=== PATIENT | male | born 1990 | race Caucasian/White ===

== ENCOUNTER 2022-02-27 10:46 | Outpatient (REF) | payer MEDICAID, OTHER, SELFPAY ==
--- NOTE | ~2022-02-27 | XR_ITS ---
EXAMINATION: XR CHEST CLINICAL INFORMATION: Chest pain COMPARISON: None TECHNIQUE: 2 views of the chest were obtained. FINDINGS: Clear lungs. No pleural effusion or pneumothorax. Normal cardiomediastinal silhouette. XR/XR chest 2V IMPRESSION: Unremarkable examination.
== END 2022-02-27 10:47 | disposition home or self-care (01) ==
LOC: HO.XRAY 10:46
PROVIDERS: PCP Registered Nurse; Visit Provider Registered Nurse
DX: R07.89 Other chest pain (principal)
CPT/HCPCS: 71046

== ENCOUNTER → 2022-05-01 14:44 | Outpatient (REF) | payer MEDICAID, OTHER, SELFPAY ==
--- NOTE | 2022-05-01 14:48 | CA_ITS ---
Transthoracic Echocardiogram Patient (Last, First, Middle): Alessandro Albright, Gender: Male Date of : 1990 Age: 31 Procedure Date: 05/01/2022 Procedure Type: Transthoracic Echocardiogram Location: OP Height: 187.96 cm Weight: 127.01 kg BSA: 2.51 m2 Heart Rate: bpm BP: 120 / 74 mmHg Virtual Reality Specialist: ORLANDO Referring MD: Jacklyn VIRGEN Surveillance Dual Rate Officer: Germán Saenz MD Symptoms: R07.89 OTHER CHEST PAIN Study Quality: Fair/contrast ECG Rhythm: Sinus Conclusions: - Essentially normal study Findings Procedure Information Contrast agent, definity, is being given per protocol without apparent complications. Left Ventricle Normal left ventricular size, thickness, and systolic function. The visually estimated ejection fraction is between 65-70%. Spectral Doppler is indicative of a normal filling pattern. Right Ventricle Normal right ventricular cavity size and systolic function. Atria Both atria are normal in size. Interatrial shunt cannot be excluded. Aortic Valve The aortic valve structure and function is likely normal. There is no aortic valve stenosis. There is no aortic valve regurgitation. Mitral Valve Normal mitral valve structure and function. There is trace mitral valve regurgitation. There is no mitral valve stenosis. Pulmonic Valve The pulmonic valve was not well visualized. Tricuspid Valve Likely normal tricuspid valve structure and function. There is trace tricuspid valve regurgitation. The right ventricular systolic pressure is normal. Normal right atrial pressure. There is no evidence of pulmonary hypertension. Great Vessels All visible segments of the aorta are normal in size. The pulmonary artery was not well visualized. Venous The inferior vena cava is normal in size and collapses greater than 50% with inspiration. Pericardium/Pleural There is no evidence of pericardial effusion. Prior Study Comparison No prior study available for comparison. Measurements 2D Linear Measurements IVSd: 0.93 0.6-0.9/0.6-1.0 cm LVIDd: 5.75 3.9-5.3/4.2-5.9 cm LVIDd Index: 2.29 2.4-3.2/2.2-3.1 cm/m2 LVIDs: 3.82 2.0-3.6 cm LVPWd: 1.15 0.7-1.1 cm LA Diam: 4.30 2.7-3.8/3.0-4.0 cm LAIDs Index: 1.71 1.5-2.3 cm/m2 LV Mass: 300.96 67-162/88-224 g LV Mass Index: 119.91 43-95/49-115 g/m2 LVOT Diam: 2.40 3.0+(-)1.3 cm 2D Systolic Function EF 4C: 68.50 >55% EF 2C: 65.50 >55% EF BiP: 66.70 >55% Mitral Valve MV Pk E: 0.76 MV PK A: 0.67 MV Decel Time: 206.00 E/A: 1.10 E'Lateral: 11.90 E'Medial: 7.94 E/E' Med: 9.60 E/E' Lat: 6.40 PHT: 60.00 MVA PHT: 3.67 Decel [place]: 3.68 Aortic Valve AoV Pk Agusto: 1.71 AoV Mn Agusto: 1.15 AoV VTI: 0.33 AoV Pk Grad: 12.00 Aov Mn Grad: 6.00 DARLINE Cont.VTI: 3.32 LVOT LVOT Pk Agusto: 1.29 LVOT Mn Agusto: 0.78 LVOT VTI: 0.25 LVOT Pk Grad: 7.00 LVOT Mn Grad: 3.00 LVOT Diam: 2.40 LVOT Area: 4.52 Diastolic Function MV Pk E: 0.76 MV Pk A: 0.67 E/A: 1.10 E'Medial: 7.94 E/E' Med: 9.60 E' Laterial: 11.90 E/E' Lat: 6.40 Right Ventricle TAPSE (mm): 27.00 TVS' Agusto: 13.40 Tricuspid Valve TR Pk Agusto: 2.23 TR Pk Grad: 20.00 RA Press: 3.00 RVSP: 23.00 Great Vessels Aorta Sinus of Valsalva: 3.23 2.0-3.[address] [place]: 2.57 1.7-3.4 cm Ao Asc: 3.10 2.1-3.4 cm Ao Arch: 2.90 Updated in Other Vendor System with Status of Final Germán Saenz MD electronically signed on 05/01/2022 4:51:06 PM with status of Final
== END ==
LOC: HO.CARD 14:44
PROVIDERS: PCP Registered Nurse; Visit Provider Registered Nurse
DX: R07.89 Other chest pain (principal)
CPT/HCPCS: 93306; Q9957

== ENCOUNTER 2023-12-18 16:19 | Outpatient (REF) | payer MEDICAID, OTHER, SELFPAY ==
[2023-12-18 18:32] LABS: Alanine Aminotransferase 32 U/L (0-40); Albumin Level 3.8 g/dL (3.5-5.0); Alkaline Phosphatase 135 U/L (39-117); Anion Gap 9 (12-20); Aspartate Amino Transferase 26 U/L (5-37); Bilirubin Total 0.3 mg/dL (0.0-1.0); Blood Urea Nitrogen 16 mg/dL (9-16); Carbon Dioxide 28 mmol/L (22-29); Chloride 104 mmol/L (96-108); Estimated Glomerular Filt Rate > 60; Glucose Random 196 mg/dL (60-115); Magnesium 1.6 mg/dL (1.6-2.6); Potassium 3.4 mmol/L (3.3-5.1); Sodium 138 mmol/L (135-145); Total Protein 7.5 g/dL (6.5-8.0)
[2023-12-18 19:00] LABS: Folate 10.3 ng/mL (> or = 4.0); Vitamin B12 504 pg/mL (200-900)
[2023-12-18 19:06] LABS: Creatinine Urine 114.18 mg/dL
[2023-12-18 19:21] LABS: Microalbum/Creatinine Ratio Ur 576.2 ug/mg cr (<30)
== END 2023-12-18 16:20 | disposition home or self-care (01) ==
LOC: HO.HHCL 16:19
PROVIDERS: Visit Provider Nurse Practitioner
DX: I10 Essential (primary) hypertension (principal); R20.8 Other disturbances of skin sensation
CPT/HCPCS: 36415; 80053; 82043; 82570; 82607; 82746; 83735

== ENCOUNTER 2024-01-03 11:43 | Outpatient (REF) | payer MEDICAID, OTHER, SELFPAY ==
[2024-01-03 13:59] LABS: Estimated Average Glucose 137 mg/dL; Hemoglobin A1c % 6.4 % (<6.0)
[2024-01-03 14:09] LABS: Alanine Aminotransferase 30 U/L (0-40); Albumin Level 3.8 g/dL (3.5-5.0); Alkaline Phosphatase 118 U/L (39-117); Aspartate Amino Transferase 25 U/L (5-37); Bilirubin Direct 0.2 mg/dL (0.0-0.5); Bilirubin Total 0.4 mg/dL (0.0-1.0); Total Protein 7.4 g/dL (6.5-8.0)
[2024-01-04 04:00] LABS: HIV AB/AG Nonreactive (Nonreactive); HIV Num 1 0.05 S/CO (0.00-0.99); ~Hepatitis C Antibody Nonreactive (Nonreactive)
[2024-01-06 22:43] LABS: RPR Rapid Plasma Reagin NON-REACTIVE (NON-REACTIVE)
== END 2024-01-03 11:44 | disposition home or self-care (01) ==
LOC: HO.HHCL 11:43
PROVIDERS: Visit Provider Nurse Practitioner Primary Care
DX: R10.11 Right upper quadrant pain (principal); R73.09 Other abnormal glucose; Z79.899 Other long term (current) drug therapy
CPT/HCPCS: 36415; 80076; 83036; 86592; 86803; 87389

== ENCOUNTER 2024-01-09 15:44 | Outpatient (REF) | payer MEDICAID, OTHER, SELFPAY ==
[2024-01-10 15:08] LABS: HIV RNA PCR Qn Copies NOT DETECTED copies/mL (NOT DETECTED); HIV RNA PCR Qn Log Copies NOT DETECTED (NOT DETECTED)
== END 2024-01-09 15:45 | disposition home or self-care (01) ==
LOC: HO.HHCL 15:44
PROVIDERS: Visit Provider Nurse Practitioner
DX: Z79.899 Other long term (current) drug therapy (principal)
CPT/HCPCS: 36415; 87536

== ENCOUNTER 2024-01-17 08:21 | Outpatient (REF) | payer MEDICAID, OTHER, SELFPAY ==
[2024-01-17 12:05] LABS: Anion Gap 11 (12-20); Blood Urea Nitrogen 14 mg/dL (9-16); Calcium 8.9 mg/dL (8.4-10.2); Carbon Dioxide 26 mmol/L (22-29); Chloride 103 mmol/L (96-108); Cholesterol 132 mg/dL (<200); Estimated Glomerular Filt Rate > 60; Glucose Random 118 mg/dL (60-115); HDL Cholesterol 34 mg/dL (>40); LDL Cholesterol Calculated 76 mg/dL (<100); Potassium 3.3 mmol/L (3.3-5.1); Sodium 137 mmol/L (135-145); Triglycerides 110 mg/dL (<150)
[2024-01-17 12:19] LABS: TSH reflex Free T4 3.24 uIU/mL (0.32-4.0)
[2024-01-17 12:39] LABS: Creatinine Urine 11.18 mg/dL; Microalbum/Creatinine Ratio Ur 250.4 ug/mg cr (<30)
== END 2024-01-17 08:22 | disposition home or self-care (01) ==
LOC: HO.HHCL 08:21
PROVIDERS: Visit Provider Nurse Practitioner
DX: I10 Essential (primary) hypertension (principal); R73.03 Prediabetes
CPT/HCPCS: 36415; 80048; 80061; 82043; 82570; 84443

== ENCOUNTER 2024-02-10 15:15 | Outpatient (REF) | payer OTHER, SELFPAY ==
[2024-02-12 09:03] LABS: HIV RNA PCR Qn Copies NOT DETECTED copies/mL (NOT DETECTED); HIV RNA PCR Qn Log Copies NOT DETECTED (NOT DETECTED)
== END 2024-02-10 15:16 | disposition home or self-care (01) ==
LOC: HO.HHCL 15:15
PROVIDERS: Visit Provider Nurse Practitioner
DX: Z79.899 Other long term (current) drug therapy (principal)
CPT/HCPCS: 36415; 87536

== ENCOUNTER 2024-04-10 14:14 | Outpatient (REF) | payer MEDICAID, OTHER, SELFPAY ==
[2024-04-10 16:34] LABS: Estimated Glomerular Filt Rate > 60
[2024-04-11 15:29] LABS: HIV RNA PCR Qn Copies NOT DETECTED copies/mL (NOT DETECTED); HIV RNA PCR Qn Log Copies NOT DETECTED (NOT DETECTED)
[2024-04-12 04:00] LABS: Syphilis Screen Reactive (Nonreactive)
[2024-04-12 04:09] LABS: ~HepC Num1 0.28 S/CO (0.00-0.79); ~Hepatitis C Antibody Nonreactive (Nonreactive)
[2024-04-14 17:04] LABS: Mycoplasma genitalium NAA Not Detected (Not Detected)
[2024-04-17 13:52] LABS: RPR Quantitative Non-Reactive (Nonreactive); T.Pallidum Particle Agg Test Reactive (Nonreactive)
== END 2024-04-10 14:15 | disposition home or self-care (01) ==
LOC: HO.HHCL 14:14
PROVIDERS: Nurse Practitioner; Visit Provider Emergency Medicine
DX: Z29.81 Encounter for HIV pre-exposure prophylaxis (principal)
CPT/HCPCS: 36415; 82565; 86592; 86780; 86803; 87536; 87563

== ENCOUNTER 2024-05-20 11:09 | Outpatient (REF) | payer MEDICAID, OTHER, SELFPAY ==
[2024-05-20 13:53] LABS: Anion Gap 13 (12-20); Blood Urea Nitrogen 13 mg/dL (9-16); Calcium 9.4 mg/dL (8.4-10.2); Carbon Dioxide 23 mmol/L (22-29); Chloride 105 mmol/L (96-108); Estimated Glomerular Filt Rate > 60; Glucose Random 139 mg/dL (60-115); Potassium 3.3 mmol/L (3.3-5.1); Sodium 138 mmol/L (135-145)
[2024-05-20 13:56] LABS: Estimated Average Glucose 154 mg/dL
[2024-05-20 14:47] LABS: Creatinine Urine 152.18 mg/dL
[2024-05-20 14:48] LABS: Microalbum/Creatinine Ratio Ur 331.1 ug/mg cr (<30)
== END 2024-05-20 11:10 | disposition home or self-care (01) ==
LOC: HO.HHCL 11:09
PROVIDERS: Visit Provider Nurse Practitioner
DX: R80.9 Proteinuria, unspecified (principal); I10 Essential (primary) hypertension; R73.03 Prediabetes
CPT/HCPCS: 36415; 80048; 82043; 82570; 83036

== ENCOUNTER 2024-07-01 12:39 | Outpatient (REF) | payer MEDICAID, OTHER, SELFPAY ==
--- NOTE | ~2024-07-01 | XR_ITS ---
EXAMINATION: XR CHEST CLINICAL INFORMATION: US of breath and difficulty breathing COMPARISON: 02/27/2022 TECHNIQUE: 2 views of the chest were obtained. FINDINGS: Slight elevation of the right hemidiaphragm unchanged. Lungs clear. No pleural effusions. Heart and pulmonary vessels normal. XR/XR chest 2V IMPRESSION: No active disease. Electronically signed by: Blade Campbell MD 07/01/2024 02:43 PM EDT
== END 2024-07-01 12:40 | disposition home or self-care (01) ==
LOC: HO.HHCX 12:39
PROVIDERS: Visit Provider Nurse Practitioner
DX: R06.02 Shortness of breath (principal)
CPT/HCPCS: 71046

== ENCOUNTER 2024-08-10 12:03 | Outpatient (REF) | payer MEDICAID, OTHER, SELFPAY ==
[2024-08-10 13:53] LABS: Alanine Aminotransferase 29 U/L (0-40); Albumin Level 3.9 g/dL (3.5-5.0); Alkaline Phosphatase 92 U/L (39-117); Aspartate Amino Transferase 26 U/L (5-37); Bilirubin Direct 0.2 mg/dL (0.0-0.5); Bilirubin Total 0.4 mg/dL (0.0-1.0); Total Protein 7.9 g/dL (6.5-8.0)
[2024-08-11 08:30] LABS: HBS Num1 579.31 mIU/mL (0-7.99); HIV AB/AG Nonreactive (Nonreactive); HIV Num 1 0.06 S/CO (0.00-0.99); ~Hepatitis B Surface Antibody REACTIVE (Nonreactive)
[2024-08-11 08:51] LABS: Syphilis Screen Reactive (Nonreactive)
[2024-08-11 13:59] LABS: HIV RNA PCR Qn Copies NOT DETECTED copies/mL (NOT DETECTED); HIV RNA PCR Qn Log Copies NOT DETECTED (NOT DETECTED)
[2024-08-19 12:26] LABS: RPR Quantitative Non-Reactive (Nonreactive); T.Pallidum Particle Agg Test Reactive (Nonreactive)
== END 2024-08-10 12:04 | disposition home or self-care (01) ==
LOC: HO.HHCL 12:03
PROVIDERS: Visit Provider Nurse Practitioner
DX: Z79.899 Other long term (current) drug therapy (principal)
CPT/HCPCS: 36415; 80076; 86592; 86706; 86780; 87389; 87536

== ENCOUNTER 2024-09-04 10:49 | Outpatient (REF) | payer MEDICAID, OTHER, SELFPAY ==
[2024-09-04 13:23] LABS: Estimated Average Glucose 146 mg/dL; Hemoglobin A1C 195.6611 umol/L; Hemoglobin A1c % 6.7 % (<6.0); Total Hemoglobin (HGBA1C) 3938.3889 umol/L
[2024-09-04 13:35] LABS: Anion Gap 9 (12-20); Blood Urea Nitrogen 8 mg/dL (9-16); Calcium 8.9 mg/dL (8.4-10.2); Carbon Dioxide 28 mmol/L (22-29); Chloride 107 mmol/L (96-108); Cholesterol 117 mg/dL (<200); Estimated Glomerular Filt Rate > 60; Glucose Random 136 mg/dL (60-115); HDL Cholesterol 33 mg/dL (>40); LDL Cholesterol Calculated 47 mg/dL (<100); Potassium 3.8 mmol/L (3.3-5.1); Sodium 140 mmol/L (135-145); Triglycerides 188 mg/dL (<150)
[2024-09-04 13:49] LABS: Creatinine Urine 142.09 mg/dL
== END 2024-09-04 10:50 | disposition home or self-care (01) ==
LOC: HO.HHCL 10:49
PROVIDERS: Visit Provider Nurse Practitioner
DX: I10 Essential (primary) hypertension (principal); E11.9 Type 2 diabetes mellitus without complications
CPT/HCPCS: 36415; 80048; 80061; 82043; 82570; 83036

== ENCOUNTER 2024-11-11 10:43 | Outpatient (REF) | payer MEDICAID, OTHER, SELFPAY ==
--- OUTSIDE RECORDS SUMMARY | 2024-11-11 12:24 | XMS_ITS | Clinical Summary ---
Author Organization [employer] Address [address] [place] [address] Care Team Providers Care Federal Agent Name Role Phone Briana Varela NP Primary Care Provider [phone] Allergies No known active allergies Medications Diclofenac Sodium (Voltaren) 1 % gelIndications:A cute midline thoracic back pain Apply 2 g topically if needed in the morning and at bedtime (muscle pain). 100 g 3 01/31/20 23 Active fluticasone (Flonase) 50 MCG/ACT nasal sprayIndications :Seasonal allergic rhinitis, unspecified trigger INSTILL 2 SPRAYS IN EACH NOSTRIL ONCE DAILY IN THE MORNING 48 g 04/22/20 23 Active empagliflozin (Jardiance) 10 MGIndications:Ty pe 2 diabetes mellitus without complication, without long-term current use of insulin ([facility]) Take 1 tablet (10 mg) by mouth Once per day. 30 tablet 11 07/01/20 24 025 Active FREESTYLE LITE test stripIndications :Type 2 diabetes mellitus without complication, without long-term current use of insulin ([facility]) Use to test blood sugar two times daily 100 each 12 07/01/20 24 025 Active Blood Glucose Monitoring Suppl (FreeStyle [place] Lite) w/Device kitIndications:T ype 2 diabetes mellitus without complication, without long-term current use of insulin ([facility]) Use to test blood sugar 2 times daily 1 kit 07/01/20 24 Active magnesium, as gluconate, (Magonate) 500 (27 Mg) MG tabletIndication s:Burning sensation of lower extremity Take 1 tablet (27 mg) by mouth 2 times daily. 60 tablet 09/30/19 25 026 Active Cabotegravir ER (Apretude) 600 MG/3ML Suspension Extended ReleaseIndicatio ns:On pre-exposure prophylaxis for HIV Inject 600 mg into the muscle every 8 (eight) weeks. Ventrogluteal 3 mL 5 09/30/19 25 Active olmesartan (Benicar) 40 MG tabletIndication s:Essential hypertension Take 1 tablet (40 mg) by mouth Once per day. 30 tablet 2 09/30/19 25 025 Active metFORMIN (Glucophage) 850 MG tabletIndication s:Pre-diabetes TAKE 1 TABLET BY MOUTH WITH BREAKFAST 30 tablet 5 09/30/19 25 Active Dulaglutide (Trulicity) 0.75 MG/0.5ML solution auto-injectorInd ications:Type 2 diabetes mellitus without complication, without long-term current use of insulin (CMS/HCC) Inject 0.75 mg under the skin 1 (one) time per week. INJECT ONE PEN (=0.75 MG) SUBCUTANEOUSLY ONCE A WEEK 2 mL 09/30/19 25 Active Alcohol Swabs 70 % padsIndications: Type 2 diabetes mellitus without complication, without long-term current use of insulin (CMS/HCC) Use to test blood sugar 2 times daily 100 each 09/30/19 25 Active Lancets miscIndications: Type 2 diabetes mellitus without complication, without long-term current use of insulin (CMS/HCC) Use to test blood sugar 2 times daily 100 each 09/30/19 25 Active Hospital, Clinic, or Other Facility Administered Medication Ordered Dose Route Frequency Start Date End Date Status Cabotegravir ER Suspension Extended Release 600 mgIndications:On pre-exposure prophylaxis for HIV 600 mg IM Once 11/11/2024 11/11/2024 Ended Active Problems Problem Noted Date Diagnosed Date Obesity (BMI 30-39.9) 08/10/2024 Hypersomnolence 07/01/2024 Assessment & Plan (07/01/2024 12:39 PM EDT): -strong suspicion for obstructive sleep apnea -STOP-BANG questioner score of 6 -patient will benefit from testing and treatment if positive test as this would aid in tighter BP control and overall cardiac health Morbid obesity 07/01/2024 Assessment & Plan (09/04/2024 5:34 PM EST): -2 lb weight gain since 06/2024 which he attributes to recent holiday festivities -reinforced dietary and exercise recommendations Dietary Recommendations: Fruits, vegetables, whole grains, protein foods, and fat-free or low-fat dairy products are healthy choices. Eat different types of protein foods in your diet. This can include seafood, lean meats, poultry, beans, peas, lentils, nuts, seeds, soy products, and eggs. Limit foods and beverages higher in added sugars, saturated fat, and sodium. Exercise Recommendations: At least 150 minutes of moderate-intensity physical activity per week, or an equivalent combination of moderate- and vigorous-intensity activity -will revaluate progress in 3 months since they would have been on Trulicity for some time by then Assessment & Plan (08/10/2024 11:29 AM EST): -continue diet and exercise -reviewed weight loss options -plan to discuss further at follow-up visit Assessment & Plan (07/01/2024 12:49 PM EDT): -patient's morbid obesity has shown to be negatively impacting their health -has been engaging in lifestyle changes with diet and physical activity, however they have not been successful with weight loss. They express interest for bariatric surgery -reviewed healthy diet and exercise recommendations: Eat a variety of fruit and vegetables, whole grains such as whole-wheat flour, bulgur (cracked wheat), oatmeal, and brown rice. Intake protein from beans, nuts, fish, and lean meats. Eat low- fat or fat-free dairy products. Limit highly processed foods such as hot dogs, sandwich meat, etc. Engage in minimum of 150 min of moderate intensity exercise weekly -referral placed Albuminuria 05/20/2024 Assessment & Plan (09/04/2024 5:23 PM EST): -started on Jardiance 10 mg on 06/2024 -repeat testing ordered today with plan to increase Jardiance dose to 20 mg if no improvement noted Assessment & Plan (07/01/2024 12:27 PM EDT): Images from the original note were not included. -severely increased albuminuria most likely r/t uncontrolled diabetes, obesity, and formerly poor BP control -currently taking olmesartan for BP control. Plan to start Jardiance 10 mg today for its multifunctional properties for glycemic control, renal and cardioprotection - Assessment & Plan (08/10/2024 11:30 AM EST): Images from the original note were not included. -macroalbuminuria state based on lab value trend -repeat ordered today. Will discuss starting jardiance for management with persistent elevation Type 2 diabetes mellitus wit hout complication, without long-term current use of insulin 01/16/2024 Assessment & Plan (09/04/2024 5:29 PM EST): -diabetes is improving. He is praised for his efforts and is encouraged to continue -start trulicity injections today and monitor for adverse reactions. Medication side effects reviewed again today -currently on arb, hgb A1c goal is <7%. Order placed for lab evaluate. POCT glucose 140 mg/dL -no statin at this time. Lipid orders pending -Foot exam completed today w/o abnormality -eye exam is forthcoming Assessment & Plan (07/01/2024 12:41 PM EDT): -A1c of 7% as of 05/20/24 -continue: metformin 850 mg every day. Will start Trulicity to aid in tighter glucose control given increased urine albumin -microalbumin: 331.1 micrograms/mg cr -foot exam: to be completed at follow-up visit -dental: will discuss at next visit -eye exam: will discuss at next visit -daily foot exams encouraged -low carb, low sugar diet and daily physical activity advised -order placed for glucometer for two times daily home monitoring -reviewed side effects of GLP1 including eating small portions and not eating through sensation of fullness. No personal or family history of thyroid cancer or pancreatitis. No known retinopathy. Advised to keep medication refrigerated, but do not freeze Assessment & Plan (08/10/2024 11:22 AM EST): -order placed to recheck A1c today -diet and lifestyle modifications re-enforced -metformin dose increased to 850 mg every day -will benefit from GLP-1 injection for both glycemic control and weight loss interventions. Patient will review their options and get back to me Assessment & Plan (01/16/2024 8:50 AM EDT): -patient informed of A1c 6.4 % (01/03/24) -will start metformin today -Healthy diet and exercise teaching completed: Eat a variety of fruit and vegetables, whole grains such as whole-wheat flour, bulgur (cracked wheat), oatmeal, and brown rice. Intake protein from beans, nuts, fish, and lean meats. Eat low-fat or fat- free dairy products. Limit highly processed foods such as hot dogs, sandwich meat, etc. Engage in minimum of 150 min of moderate intensity exercise weekly -referral to bariatric surgery placed as patient verbalizes desire to engage in surgical options -TSH ordered to rule out metabolic contribution to weight -lipids ordered to determine ASCVD risk as noted above Chest pressure 01/16/2024 Assessment & Plan (01/16/2024 10:06 AM EDT): -denies occurrence at this time therefore no need for emergency intervention -PE and symptoms not suggestive of cardiac etiology -12 lead EKG completed today with SR results -may be r/t to stress. Stress and anxiety reduction exercises discussed -continue monitoring symptoms -will consider ECHO and stress test with symptom persistence especially in the setting of hypertension -will consider PPI for silent GERD -ED precautions communicated On pre-exposure prophylaxis for HIV 01/30/2023 Seasonal allergic rhinitis 12/08/2021 Anxiety 10/24/2021 Essential hypertension 10/24/2021 Assessment & Plan (09/04/2024 5:21 PM EST): -stable based on patient's home readings consistently at goal of <130/80 mmHg consistently -continue Olmesartan 40 mg every day -continued home monitoring, low salt/low fat diet, routine daily exercise, and stress management reinforced -follow-up 3 months Assessment & Plan (07/01/2024 12:46 PM EDT): -controlled at this time with home BP readings at goal of <130/80 mmHg consistently -continue Olmesartan 40 mg every day -continued home monitoring, low salt diet, routine daily exercise, and stress management encouraged -discuss their increased risk for cardiovascular event. Will further discuss further primary prevention measures at next appointment as to not over load them with changes to their overall care today -unable to calculate ASCVD risk score given their age Assessment & Plan (08/10/2024 11:18 AM EST): -initial office BP elevated with repeat within acceptable range -BP target goal of <130/80 mmHg -continue Olmesartan 40 mg every day today. Encouraged to upload home BP log into [employer] for my review -microalbumin: see plan below -continued daily BP monitoring encouraged -low salt diet, 30 min moderate intensity daily exercise, and stress management recommended -Reviewed ED precautions to include chest pain, shortness of breath, severe headache, sudden vision changes or BP >=180/>=120 mmHg. -Call clinic if three or more BP readings >130/80 mmHg. -BMP ordered -follow-up 1 month Assessment & Plan (03/12/2024 10:42 AM EDT): -BP at target goal of <130/80 mmHg -start olmesartan 20 mg every day today -microalbumin: ordered today -daily BP monitoring advised -low salt diet and 30 min moderate intensity daily exercise recommended -Reviewed ED precautions to include chest pain, shortness of breath, severe headache, sudden vision changes or BP >=180/>=120 mmHg. -Call clinic if three or more BP readings >130/80 mmHg. -CMP ordered -follow-up 1 month Assessment & Plan (01/16/2024 10:08 AM EDT): -BP above target goal of <130/80 mmHg. Average home readings 139/90 mmHg -increase olmesartan to 40 mg every day for tighter BP control given evidence of albuminuria -microalbumin: severely elevated at 576.2 (12/20/23) repeat ordered today. Consider nephrology referral for early intervention with persistent elevation -12 lead EKG: completed today with SR -ASCVD risk: TBD based on lipid panel results ordered today -Bmp ordered to evaluate potassium and kidney function following initiation of olmesartan -eye exam: patient states last exam was 1 year ago -daily BP monitoring advised. Patient taught proper use of BP machine during visit today -low salt diet and 30 min moderate intensity daily exercise strongly encouraged -Reviewed ED precautions to include chest pain, shortness of breath, severe headache, sudden vision changes or BP >=180/>=120 mmHg. -Call clinic if three or more BP readings >140/90. -patient advised of risk for stroke, heart and renal failures secondary to lack of BP control -headache may be due to stress and or elevated BP readings. Stress reduction activities advised. May take tylenol for pain. Return to clinic with increasing frequency, worsening symptoms -follow-up 3 months Encounters Date Type Department Care Team Description 11/11/2024 10:00 AM EDT Clinical Support [address] [phone] Shyann Eckert RN On pre-exposure prophylaxis for HIV (Primary Dx) 11/11/2024 Travel 11/09/[address] [address] Briana Varela NP Type 2 diabetes mellitus without complication, without long-term current use of insulin ([facility]); Burning sensation of lower extremity; On pre-exposure prophylaxis for HIV; Essential hypertension; Pre-diabetes 10/30/2024 Telephone [facility] [address] [place] [phone] Shyann Eckert RN Injectable PrEP 10/23/[address] [phone] Briana Varela NP Prior Authorization (Apretude) 10/09/2024 Refill [facility] [address] [place] [address] Briana Varela NP Type 2 diabetes mellitus without complication, without long-term current use of insulin (CMS/HCC); Burning sensation of lower extremity; Pre-diabetes 09/30/2024 Refill [facility] [address] [place] [address] Briana Varela NP Type 2 diabetes mellitus without complication, without long-term current use of insulin (CMS/HCC) 09/30/[address] [address] Akira Islas, FELECIA Injectable PrEP Communication 09/28/2024 Refill [facility] [address] [place] [address] Briana Varela NP Type 2 diabetes mellitus without complication, without long-term current use of insulin ([facility]/HCC) 09/28/2024 Refill [facility] [address] [place] [phone] Briana Varela NP Burning sensation of lower extremity; On pre-exposure prophylaxis for HIV; Essential hypertension; Pre-diabetes; Type 2 diabetes mellitus without complication, without long-term current use of insulin ([facility]/HCC) 09/24/2024 Telephone [facility] [address] [place] [phone] Mary Santiago [place] willie recall 09/18/[address] [address] Shyann Eckert RN 09/04/2024 10:15 AM EST Office Visit [facility] [address] [place] [phone] Briana Varela NP Essential hypertension (Primary Dx); Type 2 diabetes mellitus without complication, without long-term current use of insulin (CMS/[facility]); Morbid obesity (CMS/[facility]); Albuminuria; Dietary counseling; Exercise counseling 09/04/2024 Travel 09/03/[address] [address] Briana Varela NP telephone call 08/24/[address] [address] Mary Santiago MA [employer] 08/21/2024 Telephone [facility] [address] [place] [phone] Akira Islas RN 08/13/2024 Refill [facility] [address] [place] [address] Briana Varela NP Type 2 diabetes mellitus without complication, without long-term current use of insulin (CMS/HCC) 08/13/2024 Refill [facility] [address] [place] [address], [place] [address] Briana Varela NP Burning sensation of lower extremity; On pre-exposure prophylaxis for HIV; Essential hypertension; Pre-diabetes; Type 2 diabetes mellitus without complication, without long-term current use of insulin ([facility]) 08/13/2024 Telephone [facility] [address] [place] [address] Briana Varela NP Prior Authorization 08/13/2024 Refill [facility] [address] [place] [address] Briana Varela NP Type 2 diabetes mellitus without complication, without long-term current use of insulin ([facility]) from Last 3 Months Immunizations Name Administration Dates Next Due Hep B, adult 04/08/2024,11/06/2023,10/09/2023 Influenza injectable quadriv alent preservative free 11/17/2021 Pneumococcal Conjugate PCV 20 07/01/2024 Tdap 10/09/2023 Family History Medical History Relation Name Comments Hypertension Mother Relation Name Status Comments Mother Social History Tobacco Use Types Packs/Day Years Used Date Smoking Tobacco: Some Days Cigarettes Last attempted to quit: 10/2022 Passive Smoke Exposure: Current Smokeless Tobacco: Never Alcohol Use Standard Drinks/Week Comments Yes 6 (1 standard drink = 0.6 oz pur e alcohol) sometimes weekly Alcohol Answer Date Recorded How often do you have a drink containing alcohol ? 2 03/12/2024 How many drinks containing a lcohol do you have on a typical day when you are drinking? 3 03/12/2024 How often do you have six or more drinks on one occasion? 3 03/12/2024 Depression Answer Date Recorded Patient Health Questionnaire-9 Score 1 12/18/2023 Patient Health Questionnaire-9 Score 1 12/18/2023 Last PHQ-9: Questionnaire Data Not on file 0 12/18/2023 Housing Stability Answer Date Recorded What is your housing situation today? I have lucía dean 12/10/[address] you li ve. Do you have problems with any of the following? None of the above 12/10/2023 Food Insecurity Answer Date Recorded Within the past 12 months, y ou worried that your food would run out before you got money to buy more: Sometimes True 2023 Within the past 12 months,th e food you bought just didn't last and you didn't have enough money to get more: Sometimes True 12/10/2023 Transportation Answer Date Recorded In the past 12 months, has l ack of transportation kept you from medical appts, meetings, work or from getting things needed for daily living? No 12/10/2023 Utilities Answer Date Recorded In the past 12 months, has t he electric, gas, oil or water company threatened to shut off services in your home? I am not sure 12/18/2023 Depression Answer Date Recorded Patient Health Questionnaire-2 Score 0 12/18/2023 Sex and Gender Information Value Date Recorded Sex Assigned at Male 07/02/2022 10:40 AM EDT Legal Sex Male 10:40 AM EDT Gender Identity Other 05/19/2024 11:18 PM EDT Sexual Orientation Transgender Female 08/09/2024 10:11 PM EST Sexual Orientation [place] 08/09/2024 10 :11 PM EST Sexual Orientation Queer 08/09/2024 10 :11 PM EST Last Filed Vital Signs Vital Sign Reading Time Taken Comments Blood Pressure 130/82 09/04/2024 10:37 AM EST Pulse 90 09/04/2024 10:18 AM EST Temperature 37.1 ??C (98.8 ??F) 09/04/2024 10:[address] Respiratory Rate 20 09/04/2024 10:18 AM EST Oxygen Saturation 98% 09/04/2024 10:18 AM EST Inhaled Oxygen Concentration - - Weight 170 kg (375 lb 12.8 oz) 09/04/2024 10:18 AM EST Height 185.4 cm (6' 1 ) 09/04/2024 10:18 AM EST Body Mass Index 49.58 09/04/2024 10:18 AM EST Plan of Treatment Upcoming Encounters Date Type Department Care Team (Late st Contact Info) Description 12/09/2024 10:00 AM EDT Clinical Support [facility] [address] [place] [phone] Shyann Eckert, RN [address] [place] [address] 12/18/2024 10:30 AM EDT Office Visit [facility] [address] [place] [address] Briana Varela NP [address] [place] [address] Health Maintenance Due Date Last Done Comments Family Planning (PISQ) 2007 COVID-19 Vaccine ( season) 2024 11/13/2021, 12/12/2020 Influenza Vaccine (#1) 2024 11/17/2021 SDOH Screening 12/09/2024 12/10/2023 Depression Screening 12/17/2024 12/18/2023, 12/18/19 Alcohol/Substance Use Screening 03/12/2025 03/12/2024 Tobacco Screening 09/04/2025 09/04/2024 Lipid Panel 09/04/2029 09/04/2024, 12/31, 10/17/2022, Additional history exists DTaP/Tdap/Td Vaccines (2 - Td or Tdap) 10/09/2033 10/09/2023 Zoster Vaccines (1 of 2) 2042 RSV Patients and Patients Aged 60 years or older (1 - 1-dose 75+ series) 2067 Hepatitis B Vaccines Completed 04/08/2024, 11/06/2023, 10/09/2023 Hepatitis C Screening Completed 04/10/2024 , 01/03/2024, 01/19/2022, Additional history exists Pneumococcal Vaccine: Pediatrics (0 to 5 Years) and At-Risk Patients (6 to 49) Years) Completed 07/01/2024 HIV Screening Completed 08/10/2024, 05/2024, 04/10/2024, Additional history exists HIB Vaccines Aged Out No longer eligi ble based on patient's age to complete this topic HPV Vaccines Aged Out No longer eligi ble based on patient's age to complete this topic Hepatitis A Vaccines Aged Out No long er eligible based on patient's age to complete this topic IPV Vaccines Aged Out No longer eligi ble based on patient's age to complete this topic Meningococcal Vaccine Aged Out No juan ramon sourav eligible based on patient's age to complete this topic RSV under 20 months Aged Out No longe r eligible based on patient's age to complete this topic Rotavirus Vaccines Aged Out No longer eligible based on patient's age to complete this topic Procedures Procedure Name Priority Date/Time Associated Diagnosis Comments POCT RAPID HIV SCREENING Routine 11/11/2024 11:29 AM EDT On pre-exposure prophylaxis for HIV LIPID PANEL, STANDARD Routine 09/04/2024 10:52 AM EST Type 2 diabetes mellitus without complication, without long-term current use of insulin (CMS/HCC) Essential hypertension BASIC METABOLIC PANEL Routine 09/04/2024 10:52 AM EST Type 2 diabetes mellitus without complication, without long-term current use of insulin (CMS/HCC) Essential hypertension HEMOGLOBIN A1C Routine 09/04/2024 10:52 AM EST Type 2 diabetes mellitus without complication, without long-term current use of insulin (CMS/HCC) Essential hypertension ALBUMIN, RANDOM URINE W/CREATININE Routine 09/04/2024 10:52 AM EST Type 2 diabetes mellitus without complication, without long-term current use of insulin (CMS/HCC) Essential hypertension POCT GLUCOSE Routine 09/04/2024 10:25 AM EST Type 2 diabetes mellitus without complication, without long-term current use of insulin (CMS/HCC) HIV 1/2 ANTIGEN/ANTIBODY, FOURTH GENERATION W/RFL Routine 08/10/2024 12:04 PM EST On pre-exposure prophylaxis for HIV HEPATITIS C AB W/REFL TO HCV RNA, QN, PCR Routine 04/10/2024 2:24 PM EDT Encounter for HIV pre-exposure prophylaxis from Last 3 Months or Most Recently Relevant to Health Maintenance Results * POCT RAPID HIV SCREENING (11/11/2024 11:29 AM EDT) Blood 11/11/2024 11:2 9 AM EDT Narrative Shyann Eckert RN - 11/11/2024 11:29 AM EDT negative Cortney Méndez MD POINT OF CARE TEST ENTER/EDIT OR DERABLES Final Result * (ABNORMAL) Albumin, Random Urine W/Creatinine (09/04/2024 10:52 AM EST) Creatinine, Urine 142.09 mg/dL [facility] Microalbumin Urine 155.0 mg/L H [facility] Microalbum Creatinine Ratio Ur 109.0(H) <30 ug/mg cr [facility] Comment:Albumin/Creatinine R atio Reference Ranges: Normal: < 30 ug/mg creatinine Microalbuminuria: 30 - 300 ug/mg creatinineClinical Albuminuria: > 300 ug/mg creatinine Urine (Urine, Random) 09/04/2024 10:52 AM EST 09/04/2024 12:52 PM EST Briana Martin [employer]CH[employer]OLOGY TE[employer] LAB URINE ORDERABLES Final Resu lt Performing Organization Address City/State/[facility] Co de Phone Number [facility] [address] [place] [phone] * (ABNORMAL) Hemoglobin A1c (09/04/2024 10:52 AM EST) Hemoglobin A1c 6.7(H) <6.0 % [facility] Comment:Hemoglobin A1C Refer ence Range Adults: 4.8 - 6.0 % Non diabetic: < 6.0 % Goal: < 7.0 %Additional Action Suggested: > 8.0 %Note: Hemoglobin A1c results are invalid for patients with abnormal amounts of HbF. Blood transfusions may impact the HbA1c concentration in the patient sample. Estimated Average Glucose 146 mg/dL [facility] Comment:eAG = Estimated ave rage glucose which is %A1C expressed asaverage glucose, using the formula of the [id number]-[id number] Glucose study (ADAG), Diabetes Care, Vol.31,#8,Apr. 2007 Blood Venous blood specimen / Unknown 09/04/2024 10:52 AM EST 09/04/2024 12:58 PM EST Briana Varela TECHNOLOGY TEACHER LAB BLOOD ORDERABLES Final Resu lt Performing Organization Address [facility] Co de Phone Number [facility] [address] [place] [phone] [phone] * (ABNORMAL) Lipid Panel, Standard (09/04/2024 10:52 AM EST) Triglycerides 188(H) <150 mg/dL [facility] Comment:Desirable Triglyceri de: less than 150 mg/dLBorderline High Triglyceride 150-199 mg/dLHigh Triglyceride: 200-499 mg/dLVery High Triglyceride: greater than or equal to 5OO mg/dL Cholesterol 117 <200 mg/dL [facility] Comment:Desirable Cholestero l: less than 200 mg/dLBorderline High Cholesterol: 200-239 mg/dLHigh Cholesterol: greater than 239 mg/dL LDL Cholesterol Calculated 47 <100 mg/dL [facility] Comment:Desirable LDL: less than 100 mg/dLNear Optimal/Above Optimal LDL: 110- 129 mg/dLBorderline High LDL: 130-159 mg/dLHigh LDL: 160-189 mg/dLVery High LDL: greater than or equal to 190 mg/dL HDL Cholesterol 33(L) >40 mg/dL [facility] Comment:Desirable HDL: great er than 40 mg/dL Note: This HDL assay may give artificially low results in patients with liver disease. Blood Venous blood specimen / Unknown 09/04/2024 10:52 AM EST 09/04/2024 12:58 PM EST Briana Varela TECHNOLOGY TEACHER LAB BLOOD ORDERABLES Final Resu lt Performing Organization Address [facility]/ZIP Co de Phone Number [facility] [address] [place] [address] [phone] * (ABNORMAL) Basic Metabolic Panel (09/04/2024 10:52 AM EST) Sodium 140 135 - 145 mmol/L [facility] Potassium 3.8 3.3 - 5.1 mmol/L [facility] Chloride 107 96 - 108 mmol/L [facility] Carbon Dioxide 28 22 - 29 mmol/L [facility] Anion Gap 9(L) 12 - 20 [facility] Urea Nitrogen (BUN) 8(L) 9 - 16 mg/dL [facility] Creatinine, Serum 0.74 0.5 - 1.4 mg/dL [facility] Estimated Glomerular Filt Rate >60 [facility] Comment:Chronic Kidney Disea se: Estimated GFR < 60 mL/min/[id number] Kidney Disease: Estimated GFR < 15 mL/min/1.73m2 Glucose 136(H) 60 - 115 mg/dL [facility] Calcium 8.9 8.4 - 10.2 mg/dL [facility] Blood Venous blood specimen / Unknown 09/04/2024 10:52 AM EST 09/04/2024 12:58 PM EST us Briana Varela NP LAB BLOOD ORDERABLES Final Resu lt [facility] [address] [place] [phone] * POCT Glucose (09/04/2024 10:25 AM EST) Pathologist [facility] [place] Glucose Blood, POC 140 60 - 200 mg/dL QC Media Lot # [id number] Lot# Expiration Date 53025 Blood Capillary blood specimen / Unknown 09/04/2024 10:25 AM EST Briana Varela NP POINT OF CARE TEST ENTER/EDIT O RDERABLES Final Result * HIV-1/2 Antigen and Antibodies, Fourth Generation, with Reflexes (08/10/2024 12:04 PM EST) HIV AB/AG Nonreactive Nonreactive [facility] Comment:HIV-1 p24 Ag and/or HIV-1/HIV-2 Ab not detected.A test result that is nonreactive does not exclude thepossibility of exposure to or infection with HIV-1 and/orHIV-2. Nonreactive results in this assay for individualswith prior exposure to HIV-1 and/or HIV-2 may be due toantigen and antibody levels that are below the limit ofdetection of this assay.The [employer] HIV Ag/Ab Combo assay result andsupplemental assay results should be interpreted inconjunction with the patient's clinical presentation,history and other laboratory results. If the results areinconsistent with clinical evidence, additional testing issuggested to confirm the result. 08/10/2024 12:0 4 PM EST 08/10/2024 1:09 PM EST [facility] LAB BLOOD ORDERABLES Final Resu lt Performing Organization Address [facility] Co de Phone Number [facility] [address] [place] [phone] * Hepatitis C Antibody with Reflex to HCV, RNA, Quantitative, Real-Time PCR (04/10/2024 2:24 PM EDT) Hepatitis C Antibody Nonreactive Nonreactive [facility] Comment:Antibodies to HCV no t detected; does not exclude early acuteHCV infection. Blood Venous blood specimen / Unknown 04/10/2024 2:24 PM EDT 04/10/2024 3:58 PM EDT [facility] LAB BLOOD ORDERABLES Final Resu Performing Organization Address [facility] Co de Phone Number [facility] [address] [place] [phone] from Last 3 Months or Most Recently Relevant to Health Maintenance Insurance [employer] [facility] [employer] HSN FULL Care Teams Federal Agent Relationship Specialty Start Date End Date Briana Varela NP [address] [place] [phone] PCP - General Family Medicine 06/11/23
--- OUTSIDE RECORDS SUMMARY | 2024-11-11 12:25 | XMS_ITS | Encounter Summary ---
Author Organization [employer] Address [address] [place] [address] Care Team Providers Care Teacher Lip Reading Name Role Phone Briana Varela NP Primary Care Provider [phone] Reason for Visit * Reason Onset Date Comments Med Refill 08/13/2024 Encounter Details Date Type Department Care Team ([facility] st Contact Info) Description 08/13/2024 Refill [facility] [address] [place] [address] Briana Varela NP [address] [place] [address] Type 2 diabetes mellitus without complication, without long-term current use of insulin ([facility]) Social History Tobacco Use Types Packs/Day Years [...] Orientation Queer 08/09/2024 10 :11 PM EST documented as of this encounter Plan of Treatment Upcoming Encounters Date Type Department Care Team (Late st Contact Info) Description 12/09/2024 10:00 AM EDT Clinical Support [facility] [address] [place] [address] Shyann Eckert RN [address] [place] [address] 12/18/2024 10:30 AM EDT Office Visit [facility] [address] [place] [address] Briana Varela NP [address] [place] [address] documented as of this encounter Visit Diagnoses Diagnosis Type 2 diabetes mellitus without complication, without long-term current use of insulin ([facility]) documented in this encounter Additional Health Concerns Assessment Noted Time PHQ-9 Depression Total Score: 1 12/18/19 24 3:08 PM EDT documented as of this encounter Care Teams Teacher Lip Reading Relationship Specialty Start Date End Date Briana Varela NP [address] [place] [address] PCP - General Family Medicine 06/11/23 documented as of this encounter
--- OUTSIDE RECORDS SUMMARY | 2024-11-11 12:25 | XMS_ITS | Encounter Summary ---
Author Organization [employer] Address [address] [facility] [place] [address] Care Team Providers Care Armature Winder Name Role Phone Briana Vraela NP Primary Care Provider [phone] Reason for Visit * Reason Onset Date Comments Med Refill 09/30/2024 Encounter Details Date Type Department Care Team (Late st Contact Info) Description 09/30/2024 Refill [facility] [address] [place] [address] Briana Varela NP [address] [place] [address] Type 2 diabetes mellitus without complication, without long-term current use of insulin ([facility]) Social History Tobacco Use Types Packs/Day Years [...] Description 12/09/2024 10:00 AM EDT Clinical Support [facility] [address] [place] [address] Shyann Eckert RN [address] [place] [address] 12/18/2024 10:30 AM EDT Office Visit [facility] [address] [place] [address] Briana Varela NP [address] [place] [address] documented as of this encounter Visit Diagnoses Diagnosis Type 2 diabetes mellitus without complication, without long-term current use of insulin ([facility]) documented in this encounter Additional Health Concerns Assessment Noted Time PHQ-9 Depression Total Score: 1 04/17/20 24 3:08 PM EDT documented as of this encounter Care Teams Armature Winder Relationship Specialty Start Date End Date Briana Varela NP [address] [place] [address] PCP - General Family Medicine 06/11/23 documented as of this encounter
--- OUTSIDE RECORDS SUMMARY | 2024-11-11 12:25 | XMS_ITS | Encounter Summary ---
Author Organization [employer] Address [address] [place] [address] Care Team Providers Care Exercise Equipment Specialist Name Role Phone Briana Varela NP Primary Care Provider [phone] Reason for Visit * Reason Onset Date Comments Med Refill 09/28/2024 Encounter Details Date Type Department Care Team ([facility] st Contact Info) Description 09/28/2024 Refill [facility] [address] [place] [address] Briana Varela NP [address] [place] [address] Type 2 diabetes mellitus without complication, without long-term current use of insulin ([facility] Social History Tobacco Use Types Packs/Day Years [...] Description 12/09/2024 10:00 AM EDT Clinical Support [facility] [address] [place] [address] Shyann Eckert RN [address] [place] [address] 12/18/2024 10:30 AM EDT Office Visit [facility] [address] [place] [address] Briana Varela NP [address] [place] [address] documented as of this encounter Visit Diagnoses Diagnosis Type 2 diabetes mellitus without complication, without long-term current use of insulin ([facility]) documented in this encounter Additional Health Concerns Assessment Noted Time PHQ-9 Depression Total Score: 1 12/18/19 24 3:08 PM EDT documented as of this encounter Care Teams Exercise Equipment Specialist Relationship Specialty Start Date End Date Briana Varela NP [address] [place] [address] PCP - General Family Medicine 06/11/23 documented as of this encounter
--- OUTSIDE RECORDS SUMMARY | 2024-11-11 12:25 | XMS_ITS | Encounter Summary ---
Author Organization [employer] Address [address] [place] [address] Care Team Providers Care Human Machine Interface Engineer Name Role Phone Briana Varela NP Primary Care Provider [phone] Reason for Visit * Reason Onset Date Comments Med Refill 05/21/2024 Encounter Details Date Type Department Care Team (Late st Contact Info) Description 05/21/2024 Refill [facility] [address] [place] [address] Briana Varela NP [address] [place] [address] Burning sensation of lower extremity; On pre-exposure prophylaxis for HIV; Essential hypertension; Pre-diabetes Social History Tobacco Use Types Packs/Day Years [...] Description 12/09/2024 10:00 AM EDT Clinical Support [facility] [address] [place] [address] Shyann Eckert RN [address] [place] [phone] 12/18/2024 10:30 AM EDT Office Visit [facility] [address] [place] [address] Briana Varela NP [address] [place] [address] documented as of this encounter Visit Diagnoses Diagnosis Burning sensation of lower extremity On pre-exposure prophylaxis for HIV Essential hypertension Unspecified essential hypertension Pre-diabetes Other abnormal glucose documented in this encounter Additional Health Concerns Assessment Noted Time PHQ-9 Depression Total Score: 1 12/18/19 24 3:08 PM EDT documented as of this encounter Care Teams Human Machine Interface Engineer Relationship Specialty Start Date End Date Briana Varela NP [address] [place] [address] PCP - General Family Medicine 06/11/23 documented as of this encounter
--- OUTSIDE RECORDS SUMMARY | 2024-11-11 12:25 | XMS_ITS | Encounter Summary ---
Author Organization [employer] Address [address] [place] [address] Care Team Providers Care Science Center Display Builder Name Role Phone Briana Varela NP Primary Care Provider [phone] Reason for Visit * Reason Onset Date Comments Prior Authorization 07/06/2024 Encounter Details Date Type Department Care Team ([facility] st Contact Info) Description 07/06/2024 Telephone [facility] [address] [place] [address] Briana Varela NP [address] [place] [address] Prior Authorization Social History Tobacco Use Types Packs/Day Years [...] PM EST documented as of this encounter Miscellaneous Notes * Telephone Encounter - Kati Lester LPN - 07/09/2024 9:55 AM EST Sending as an FYI pt was denied for this medication , Scanned into media if wished to review. Tc from pt stating Dulaglutide (Trulicity) 0.75 MG/0.5ML solution auto-injector needs a PA. * Telephone Encounter - Sam Rodrigez - 07/06/2024 4:25 PM EST Tc from pt stating Dulaglutide (Trulicity) 0.75 MG/0.5ML solution auto-injector needs a PA. documented in this encounter Plan of Treatment Upcoming Encounters Date Type Department Care Team (Late st Contact Info) Description 12/09/2024 10:00 AM EDT Clinical Support [facility] [address] [place] [address] Shyann Eckert, RN [address] [place] [address] 12/18/2024 10:30 AM EDT Office Visit [facility] [address] [place] [address] Briana Varela NP [address] [place] [address] documented as of this encounter Visit Diagnoses Not on filedocumented in this encounter Additional Health Concerns Assessment Noted Time PHQ-9 Depression Total Score: 1 12/18/19 24 3:08 PM EDT documented as of this encounter Care Teams Science Center Display Builder Relationship Specialty Start Date End Date Briana Varela NP [address] [place] [phone] PCP - General Family Medicine 06/11/23 documented as of this encounter
--- OUTSIDE RECORDS SUMMARY | 2024-11-11 12:25 | XMS_ITS | Encounter Summary ---
Author Organization [employer] Address [address] [place] [address] Care Team Providers Care Gis Geographer Name Role Phone Briana Varela NP Primary Care Provider [phone] Reason for Visit * Reason Onset Date Comments Med Refill 11/09/2024 Encounter Details Date Type Department Care Team (Late st Contact Info) Description 11/09/2024 Refill [facility] [address] [place] [address] Briana Varela NP [address] [place] [address] Type 2 diabetes mellitus without complication, without long-term current use of insulin ([facility]); Burning sensation of lower extremity; On pre-exposure [...] your housing situation today? I have lucía sing 12/10/[address] you li [...] Description 12/09/2024 10:00 AM EDT Clinical Support [facility] [address] [place] [address] Shyann Eckert, RN [address] [place] [address] 12/18/2024 10:30 AM EDT Office Visit [facility] [address] [place] [address] rBiana Varela NP [address] [place] [address] documented as of this encounter Visit Diagnoses Diagnosis Type 2 diabetes mellitus without complication, without long-term current use of insulin ([facility]) Burning sensation of lower extremity On pre-exposure prophylaxis for HIV Essential hypertension Unspecified essential hypertension Pre-diabetes Other abnormal glucose documented in this encounter Additional Health Concerns Assessment Noted Time PHQ-9 Depression Total Score: 1 12/18/19 24 3:08 PM EDT documented as of this encounter Care Teams Gis Geographer Relationship Specialty Start Date End Date Briana Varela NP [address] [place] [address] PCP - General Family Medicine 06/11/23 documented as of this encounter
--- OUTSIDE RECORDS SUMMARY | 2024-11-11 12:25 | XMS_ITS | Encounter Summary ---
Author Organization [employer] Address [address] [place] [address] Care Team Providers Care Kennel Attendant Name Role Phone RogelioJacklyn Clarita VIRGEN Primary Care Provider [phone] Briana Varela NP Primary Care Provider [phone] Encounter Details Date Type Department Care Team (Late st Contact Info) Description 10/01/2022 Orders Only [facility] [address] [place] [address] Ailyn Arshad LPN Social History Tobacco Use Types Packs/Day Years Used Date Smoking Tobacco: Never Assessed Sex and Gender Information Value Date Recorded [...] Description 12/09/2024 10:00 AM EDT Clinical Support [facility] [address] [place] [address] Shyann Eckert, FELE[employer]IA [address] [place] [address] 12/18/2024 10:30 AM EDT Office Visit [facility] [address] [place] [address] Briana Varela NP [address] [place] [address] documented as of this encounter Visit Diagnoses Not on filedocumented in this encounter Care Teams Kennel Attendant Relationship Specialty Start Date End Date Jacklyn Mercado FNP PCP - General Family Medicine 10/24/21 06/10/23 Briana Varela NP [address] [place] [address] PCP - General Family Medicine 06/11/23 documented as of this encounter
--- OUTSIDE RECORDS SUMMARY | 2024-11-11 12:25 | XMS_ITS | Encounter Summary ---
Author Organization [employer] Address [address] 7[address] [place] [address] Care Team Providers Care Database Software Technician Name Role Phone Briana Varela NP Primary Care Provider Encounter Details Date Type Department Care Team (Latest Contact Info) Description 11/11/2024 10:00 AM EDT Clinical Support [facility] [address] [place] [address] Darian Montiel RN [address] [place] [address] On pre-exposure prophylaxis for HIV (Primary Dx) Social History Tobacco Use Types Packs/Day Years [...] the past 12 months, has t he [employer] gas, oil or water [employer] threatened to shut off services in your [...] PM EST documented as of this encounter Progress Notes * Darian Montiel RN - 11/11/2024 10:00 AM EDT Pt here for restart of APRETUDE (600-mg cabotegravir). She reports no ADEs noted. Reviewed and confirmed: Negative 4th generation HIV-1 test within last 7 days. HIV-1 RNA assay test (HIV VL) negative or pending at time of visit. No previous hypersensitivity reaction to cabotegravir. Reviewed medication list; pt is not taking carbamazepine, oxcarbazepine, phenobarbital, phenytoin, rifampin, or rifapentine. Pt weighs over 77 lbs. Pt does not have gluteal implants. Pt is not (or has consulted with a provider). Pt does not have any symptoms of acute HIV (fever, fatigue, myalgia, sore throat, rash). LFTs done within last 6 months, or included in initial labs today. Last LFTs: 08/10/24 Hep B status (if stopping Descovy or Truvada): surface ab, surface ag, core ab all negative 01/19/2022. Pt received Engerix-B vaccine series in 2022. test [if applicable]: N/A Patient questions answered. Reviewed importance of attending lab and injection appointments. Reviewed that medication is an IM injection in gluteal muscle and cannot be taken out once it is given. 600 mg cabotegravir injected IM into Left gluteal muscle, using 2 inch needle. Pt advised to not rub the injection sites. Pt tolerated well, advised to remain 20 mins after injection, no adverse reaction noted. HIV-1 RNA done in lab.Patient ID: Alessandro Jaimes is a 34 y.o. adult. Procedures Pt given phone number for RN and PrEP navigator if they have any questions. Teaching points reviewed: Importance of adherence to injection and lab monitoring schedule: once monthly for 2 mos, then every 2 mos afterward. Importance of contacting provider/RN for sooner HIV testing: When recent exposures to HIV-1 are suspected or clinical symptoms consistent with acute HIV-1 (eg, fever, fatigue, myalgia, sore throat, rash) are present Upon diagnosis of any other STI Reviewed long ???tail?? effect of medication. Apretude (IM cabotegravir) can be present in the body for up to 12 months after an injection, though not at a level to protect from HIV acquisition. There is a risk that if someone did acquire HIV-1 before, during, or within 12 mos of discontinuation of Apretude, that strain of HIV-1 could be resistant if they are not current on dosing or are not on a different form of PrEP, such as Truvada or Descovy. Counseled on site reaction and side effects (abdominal pain, jaundice, rash, depression etc.) that should be brought to provider attention. PrEP does not protect against STIs other than HIV, or other blood-borne pathogens. If you plan to miss a dose by more than 7 days, let us know as soon as possible so we can plan for this. You can take oral cabotegravir for up to 2 months to cover for 1 missed injection. If you keely dose by accident, contact us as soon as you can so we can make a plan to re-start PrEP - if desired and appropriate. Plan: Thorough STI testing every other visit (every 4 mos) or sooner if needed in addition to HIV testing. Syphilis serology done 12/9/24 next due 12/09/24 and [facility] lab done today 11/11/24. Next LFTs 6 months after first injection, then annually: LFTs due 05/14/25 Appointment for 1mos given w/ 7d kaylynn period: 12/09/24 documented in this encounter Miscellaneous Notes * Addendum Note - Darian Montiel RN - 11/11/2024 10:00 AM EDTAddended by: DARIAN MONTIEL on: 11/11/2024 11:31 AM Modules accepted: Orders documented in this encounter Plan of Treatment Upcoming Encounters Date Type Department Care Team (Late st Contact Info) Description 12/09/2024 10:00 AM EDT Clinical Support [facility] [address] [place] [address] Darian Montiel, RN [address] [place] [address] 12/18/2024 10:30 AM EDT Office Visit [facility] [address] [place] [address] Briana Varela NP [address] [place] [address] Scheduled Orders Name Type Priority Associated Diagnoses Orde r Schedule HIV-1 RNA, Quantitative, Real-Time PCR Lab Routine On pre-exposure prophylaxis for HIV Expected: 11/11/2024 (Approximate), Expires: 11/11/2025 documented as of this encounter Procedures Procedure Name Priority Date/Time Associated Diagnosis Comments POCT RAPID HIV SCREENING Routine 11/11/2024 11:29 AM EDT On pre-exposure prophylaxis for HIV documented in this encounter Results * POCT RAPID HIV SCREENING (11/11/2024 11:29 AM EDT) Blood 11/11/2024 11:2 9 AM EDT Narrative Darian Montiel, RN - 11/11/2024 11:29 AM EDT negative Cortney Méndez MD POINT OF CARE TEST ENTER/EDIT OR DERABLES Final Result documented in this encounter Visit Diagnoses Diagnosis On pre-exposure prophylaxis for HIV- Primary documented in this encounter Administered Medications Inactive Administered Medications - up to 3 most recent administrations Medication Order MAR Action Action Date Dose Rate Site Cabotegravir ER Suspension Extended Release 600 mg 600 mg, Intramuscular, Once, On Sat11/11/24 at 1130, For 1 dose, Ventrogluteal.Indication s:On pre-exposure prophylaxis for HIV Given 11/11/2024 11:30 AM EDT 600 mg Left Ventrogluteal documented in this encounter Additional Health Concerns Assessment Noted Time PHQ-9 Depression Total Score: 1 12/18/19 24 3:08 PM EDT documented as of this encounter Care Teams Database Software Technician Relationship Specialty Start Date End Date Briana Varela NP [address] [place] [address] PCP - General Family Medicine 06/11/23 documented as of this encounter
--- OUTSIDE RECORDS SUMMARY | 2024-11-11 12:25 | XMS_ITS | Encounter Summary ---
Author Organization [employer] Address [address] [place] [address] Care Team Providers Care Senior Security Engineer Name Role Phone rBiana Varela NP Primary Care Provider [phone] Reason for Visit * Reason Onset Date Comments Injectable PrEP 10/30/2024 Encounter Details Date Type Department Care Team ([facility] Contact Info) Description 10/30/2024 Telephone [facility] [address] [place] [address] Shyann Eckert RN [address] [place] [address] Injectable PrEP Social History Tobacco Use Types Packs/Day Years [...] encounter Miscellaneous Notes * Telephone Encounter - Akira Isals RN - 11/06/2024 9:26 AM EST Apretude retrieved from [employer] mail list processor (was delivered to [facility] [address]) and locked in [facility] med room. RN call to [facility] and let them know we were able to locate the shipment. Requested they put shipping address as [address] [place] [address] for future shipments. * Telephone Encounter - Shyann Eckert RN - 11/06/2024 8:44 AM EST RN called [facility] pharmacy after not receiving Apretude delivery. Spoke to misty who states thetracking number is: [phone], Misty also states the package was delivered to a PO Box, and will open up a ticket to track shipping since package was not delivered to correct location. Awaiting a call back to see if we can have a new med delivered, in the mean time, pt called and informed, and rescheduled for 11/11/24 at 10am, pt thankful states he needed to reschedule so this is better. RN will continue to trak package. * Telephone Encounter - Shyann Eckert RN - 11/04/2024 8:39 AM EST RX has not yet been delivered, RN called [facility], spoke to Krissy, states medication is still in route and expected to be delivered today. RN will f/u. RN called [facility] #[phone], Apretude will be delivered 11/03/24. * Telephone Encounter - Shyann Eckert RN - 10/30/2024 2:57 PM EST RN called [facility] #[phone], Apretude will be delivered 11/03/24. documented in this encounter Plan of Treatment Upcoming Encounters Date Type Department Care Team (Late st Contact Info) Description 12/09/2024 10:00 AM EDT Clinical Support [facility]INE [address] [place] [address] Shyann Eckert RN [address] [place] [address] 12/18/2024 10:30 AM EDT Office Visit [facility] [address] [place] [address] Briana Varela NP [address] [place] [address] documented as of this encounter Visit Diagnoses Not on filedocumented in this encounter Additional Health Concerns Assessment Noted Time PHQ-9 Depression Total Score: 1 12/18/19 24 3:08 PM EDT documented as of this encounter Care Teams Senior Security Engineer Relationship Specialty Start Date End Date Briana Varela NP [address] [place] [address] PCP - General Family Medicine 06/11/23 documented as of this encounter
--- OUTSIDE RECORDS SUMMARY | 2024-11-11 12:25 | XMS_ITS | Encounter Summary ---
Author Organization [employer] Address [address] 7[address] [place] [address] Care Team Providers Care Phone Technician Name Role Phone Briana Varela NP Primary Care Provider [phone] Reason for Visit * Reason Onset Date Comments Med Refill 10/09/2024 Encounter Details Date Type Department Care Team (Late st Contact Info) Description 10/09/2024 Refill [facility] [address] [place] [address] Briana Varela NP [address] [place] [address] Type 2 diabetes mellitus without complication, without long-term current use of insulin ([facility]); Burning sensation of lower extremity; Pre-diabetes Social History Tobacco Use Types Packs/Day [...] Description 12/09/2024 10:00 AM EDT Clinical Support [facility] [address] [place] [address] Shyann Eckert RN [address] [place] [address] 12/18/2024 10:30 AM EDT Office Visit [facility] [address] [place] [address] Briana Varela NP [address] [place] [address] documented as of this encounter Visit Diagnoses Diagnosis Type 2 diabetes mellitus without complication, without long-term current use of insulin ([facility]) Burning sensation of lower extremity Pre-diabetes Other abnormal glucose documented in this encounter Additional Health Concerns Assessment Noted Time PHQ-9 Depression Total Score: 1 12/18/19 24 3:08 PM EDT documented as of this encounter Care Teams Phone Technician Relationship Specialty Start Date End Date Briana Varela NP [address] [place] [address] PCP - General Family Medicine 06/11/23 documented as of this encounter
--- OUTSIDE RECORDS SUMMARY | 2024-11-11 12:25 | XMS_ITS | Encounter Summary ---
Author Organization [employer] Address [address] 7[address] [place] [address] Care Team Providers Care Lead Driver Name Role Phone Briana Varela NP Primary Care Provider [phone] Reason for Visit * Reason Onset Date Comments Prior Authorization 10/23/2024 Apretude Encounter Details Date Type Department Care Team ([facility] st Contact Info) Description 10/23/2024 Telephone [facility] [address] [place] [address] Briana Varela NP [address] [place] [address] Prior Authorization (Apretude) Social History Tobacco Use Types Packs/Day Years [...] encounter Miscellaneous Notes * Telephone Encounter - Brit Mancilla - 10/23/2024 2:59 PM EST PA for Apretude from [employer] placed on PCP desk for signature. documented in this encounter Plan of Treatment Upcoming Encounters Date Type Department Care Team (Late st Contact Info) Description 12/09/2024 10:00 AM EDT Clinical Support [facility] [address] [place] [address] Shyann Eckert RN [address] [place] [address] 12/18/2024 10:30 AM EDT Office Visit [facility] [address] [place] [address] Briana Varela NP [address] [place] [address] documented as of this encounter Visit Diagnoses Not on filedocumented in this encounter Additional Health Concerns Assessment Noted Time PHQ-9 Depression Total Score: 1 12/18/19 24 3:08 PM EDT documented as of this encounter Care Teams Lead Driver Relationship Specialty Start Date End Date Briana Varela NP [address] [place] [address] PCP - General Family Medicine 06/11/23 documented as of this encounter
--- OUTSIDE RECORDS SUMMARY | 2024-11-11 12:25 | XMS_ITS | Encounter Summary ---
Author Organization [employer] Address [address] [place] [address] Care Team Providers Care Watch Adjuster Name Role Phone Briana Varela NP Primary Care Provider [phone] Reason for Visit * Reason Onset Date Comments Med Refill 07/16/2024 Encounter Details Date Type Department Care Team (Late st Contact Info) Description 07/16/2024 Refill [facility] [address] [place] [address] Briana Varela NP [address] [place] [address] Type 2 diabetes mellitus without complication, without long-term current use of insulin ([facility]) Social History Tobacco Use Types [...] Description 12/09/2024 10:00 AM EDT Clinical Support [facility] [address] [place] [address] Shyann Eckert RN [address] [place] [address] 12/18/2024 10:30 AM EDT Office Visit [facility] [address] [place] [address] Briana Varela NP [address] [place] [address] documented as of this encounter Visit Diagnoses Diagnosis Type 2 diabetes mellitus without complication, without long-term current use of insulin ([facility]) documented in this encounter Additional Health Concerns Assessment Noted Time PHQ-9 Depression Total Score: 1 04/17/20 24 3:08 PM EDT documented as of this encounter Care Teams Watch Adjuster Relationship Specialty Start Date End Date Briana Varela NP [address] [place] [address] PCP - General Family Medicine 06/11/23 documented as of this encounter
--- OUTSIDE RECORDS SUMMARY | 2024-11-11 12:25 | XMS_ITS | Encounter Summary ---
Author Organization [employer] Address [address] [place] [address] Care Team Providers Care Client Consultant Name Role Phone Briana Varela NP Primary Care Provider [phone] Encounter Details Date Type Department Care Team (Latest Contact Info) Description 11/11/2024 Travel Social History Tobacco Use Types Packs/Day Years [...] is your housing situation today? I have lucíasb dean 12/10/[address] you [...] Description 12/09/2024 10:00 AM EDT Clinical Support [facility] [address] [place] [address] Shyann Eckert, RN [address] [place] [address] 12/18/2024 10:30 AM EDT Office Visit [facility] [address] [place] [address] Briana Varela NP [address] [place] [address] documented as of this encounter Visit Diagnoses Not on filedocumented in this encounter Additional Health Concerns Assessment Noted Time PHQ-9 Depression Total Score: 1 12/18/19 24 3:08 PM EDT documented as of this encounter Care Teams Client Consultant Relationship Specialty Start Date End Date Briana Varela NP [address] [place] [address] PCP - General Family Medicine 06/11/23 documented as of this encounter
[2024-11-12 17:33] LABS: HIV RNA PCR Qn Copies NOT DETECTED copies/mL (NOT DETECTED); HIV RNA PCR Qn Log Copies NOT DETECTED (NOT DETECTED)
== END 2024-11-11 10:44 | disposition home or self-care (01) ==
LOC: HO.HHCL 10:43
PROVIDERS: Visit Provider Nurse Practitioner
DX: Z79.899 Other long term (current) drug therapy (principal)
CPT/HCPCS: 36415; 87536

== ENCOUNTER 2024-12-16 10:40 | Outpatient (REF) | payer MEDICAID, OTHER, SELFPAY ==
--- OUTSIDE RECORDS SUMMARY | 2024-12-16 12:37 | XMS_ITS | Encounter Summary ---
Author Organization [employer] Address [address] 7[address] [place] [address] Care Team Providers Care Legal Department Manager Name Role Phone Briana Varela NP Primary Care Provider [phone] Reason for Visit * Reason Onset Date Comments Med Refill 09/30/2024 Encounter Details Date Type Department Care Team (Late st Contact Info) Description 09/30/2024 Refill [facility] [address] [place] [address] Briana Varela NP [address] [place] [address] Type 2 diabetes mellitus without complication, without long-term current use of insulin ([facility]) Social History Tobacco Use Types Packs/Day Years [...] Care Team (Late st Contact Info) Description 12/18/2024 10:30 AM EDT Office Visit [facility] [address] [place] [address] Briana Varela NP [address] [place] [address] 02/09/2025 10:30 AM EDT Clinical Support [facility] [address] [place] [address] Shyann Eckert RN [address] [place] [address] documented as of this encounter Visit Diagnoses Diagnosis Type 2 diabetes mellitus without complication, without long-term current use of insulin ([facility]) documented in this encounter Additional Health Concerns Assessment Noted Time PHQ-9 Depression Total Score: 1 04/17/20 24 3:08 PM EDT documented as of this encounter Care Teams Legal Department Manager Relationship Specialty Start Date End Date Briana Varela NP [address] [place] [address] PCP - General Family Medicine 06/11/23 documented as of this encounter
--- OUTSIDE RECORDS SUMMARY | 2024-12-16 12:37 | XMS_ITS | Encounter Summary ---
Author Organization [employer] Address [address] [place] [address] Care Team Providers Care Cupola Hoist Operator Name Role Phone Briana Varela NP Primary Care Provider [phone] Reason for Visit * Reason Onset Date Comments Med Refill 08/13/2024 Encounter Details Date Type Department Care Team ([facility] st Contact Info) Description 08/13/2024 Refill [facility] [address] [place] [address] Briana Varela NP [address] [place] [address] Type 2 diabetes mellitus without complication, without long-term current use of insulin ([facility]) Social History Tobacco Use Types Packs/Day Years [...] Description 12/18/2024 10:30 AM EDT Office Visit [facility] [address] [place] [address] Briana Varela NP [address] [place] [address] 02/09/2025 10:30 AM EDT Clinical Support [facility] [address] [place] [address] Shyann Eckert RN [address] [place] [address] documented as of this encounter Visit Diagnoses Diagnosis Type 2 diabetes mellitus without complication, without long-term current use of insulin ([facility]) documented in this encounter Additional Health Concerns Assessment Noted Time PHQ-9 Depression Total Score: 1 12/18/19 24 3:08 PM EDT documented as of this encounter Care Teams Cupola Hoist Operator Relationship Specialty Start Date End Date Briana Varela NP [address] [place] [address] PCP - General Family Medicine 06/11/23 documented as of this encounter
--- OUTSIDE RECORDS SUMMARY | 2024-12-16 12:37 | XMS_ITS | Encounter Summary ---
Author Organization [employer] Address [address] [place] [address] Care Team Providers Care Plant Puller Name Role Phone Briana Varela NP Primary Care Provider [phone] Reason for Visit * Reason Onset Date Comments Med Refill 11/09/2024 Encounter Details Date Type Department Care Team (Late st Contact Info) Description 11/09/2024 Refill [facility] [address] [place] [address] Briana Varela NP [address] [place] [address] Type 2 diabetes mellitus without complication, without long-term current use of insulin ([facility]); Burning sensation of lower extremity; On pre-exposure [...] Description 12/18/2024 10:30 AM EDT Office Visit [facility] [address] [place] [address] Briana Varela NP [address] [place] [address] 02/09/2025 10:30 AM EDT Clinical Support [facility] [address] [place] [address] Shyann Eckert, [employer] [address] [place] [address] documented as of this encounter Visit Diagnoses Diagnosis Type 2 diabetes mellitus without complication, without long-term current use of insulin ([facility]) Burning sensation of lower extremity On pre-exposure prophylaxis for HIV Essential hypertension Unspecified essential hypertension Pre-diabetes Other abnormal glucose documented in this encounter Additional Health Concerns Assessment Noted Time PHQ-9 Depression Total Score: 1 12/18/19 24 3:08 PM EDT documented as of this encounter Care Teams Plant Puller Relationship Specialty Start Date End Date Briana Varela NP [address] [place] [address] PCP - General Family Medicine 06/11/23 documented as of this encounter
--- OUTSIDE RECORDS SUMMARY | 2024-12-16 12:37 | XMS_ITS | Encounter Summary ---
Author Organization [employer] Address [address] [place] [address] Care Team Providers Care Smoking Tobacco Cutter Operator Name Role Phone Briana Varela NP Primary Care Provider [phone] Reason for Visit * Reason Onset Date Comments Med Refill 10/09/2024 Encounter Details Date Type Department Care Team (Late st Contact Info) Description 10/09/2024 Refill [facility] [address] [place] [address] Briana Varela NP [address] [place] [address] Type 2 diabetes mellitus without complication, without long-term current use of insulin ([facility]); Burning sensation of lower extremity; Pre-diabetes Social [...] Description 12/18/2024 10:30 AM EDT Office Visit [facility] [address] [place] [address] Briana Varela NP [address] [place] [address] 02/09/2025 10:30 AM EDT Clinical Support [facility] [address] [place] [address] hSyann Eckert RN [address] [place] [address] documented as of this encounter Visit Diagnoses Diagnosis Type 2 diabetes mellitus without complication, without long-term current use of insulin ([facility]) Burning sensation of lower extremity Pre-diabetes Other abnormal glucose documented in this encounter Additional Health Concerns Assessment Noted Time PHQ-9 Depression Total Score: 1 12/18/19 24 3:08 PM EDT documented as of this encounter Care Teams Smoking Tobacco Cutter Operator Relationship Specialty Start Date End Date Briana Varela NP [address] [place] [address] PCP - General Family Medicine 06/11/23 documented as of this encounter
--- OUTSIDE RECORDS SUMMARY | 2024-12-16 12:37 | XMS_ITS | Encounter Summary ---
Author Organization [employer] Address [address] [facility] [address] 7[address] [place] [address] Care Team Providers Care Office Services Clerk Name Role Phone Briana Varela NP Primary Care Provider [phone] Reason for Visit * Reason Onset Date Comments Prior Authorization 07/06/2024 Encounter Details Date Type Department Care Team ([facility] st Contact Info) Description 07/06/2024 Telephone [facility] MED[facility]INE [address] [place] [address] Briana Varela NP [address] [place] [address] Prior Authorization Social History Tobacco Use Types [...] Description 12/18/2024 10:30 AM EDT Office Visit [facility] MEDICINE [address] [place] [address] Briana Varela NP [address] [place] [address] 02/09/2025 10:30 AM EDT Clinical Support [address] [address] Shyann Eckert, FELECIA [address] [place] [address] documented as of this encounter Visit Diagnoses Not on filedocumented in this encounter Additional Health Concerns Assessment Noted Time PHQ-9 Depression Total Score: 1 12/18/19 24 3:08 PM EDT documented as of this encounter Care Teams Office Services Clerk Relationship Specialty Start Date End Date Briana Varela NP [address] [place] [address] PCP - General Family Medicine 06/11/23 documented as of this encounter
--- OUTSIDE RECORDS SUMMARY | 2024-12-16 12:37 | XMS_ITS | Encounter Summary ---
Author Organization [employer] Address [address] [facility] [address] [address] 7[address] [place] [address] Care Team Providers Care Industrial Hygiene Technician Name Role Phone Briana Varela NP Primary Care Provider [phone] Encounter Details Date Type Department Care Team (Latest Contact Info) Description 12/16/2024 10:00 AM EDT Clinical Support [facility] [address] [place] [address] Shyann Eckert RN [address] [place] [address] Encounter for HIV pre-exposure prophylaxis (Primary Dx) Social History Tobacco Use Types [...] got money to buy more: Sometimes True 2024 Within the past 12 months,th e food you bought just didn't last and you didn't have enough money to get more: Not on file 12/10/2024 Transportation Answer Date Recorded In the past 12 months, has l ack of transportation kept you from medical appts, meetings, work or from getting things needed for daily living? No 12/10/2023 Utilities Answer Date Recorded In the past 12 months, has t he [employer], gas, oil or water [employer] threatened to shut off services in your [...] as of this encounter Progress Notes * Shyann Eckert RN - 12/16/2024 10:00 AM EDT Pt here for restart [...] given. 600 mg cabotegravir injected IM into RIGHT gluteal muscle, using 2 inch needle. Pt [...] addition to HIV testing. Syphilis serology done 12/16/24 [address] [facility] done today 11/11/24. ext LFTs 6 months after first injection, then annually: LFTs due 05/14/25 Appointment for 2mos given w/ 7d kaylynn period: 02/09/25 @10:30AM documented in this encounter Plan of Treatment Upcoming Encounters Date Type Department Care Team (Late st Contact Info) Description 12/18/2024 10:30 AM EDT Office Visit [facility] [address] [place] [phone] Briana Varela NP [address] [place] [address] 02/09/2025 10:30 AM EDT Clinical Support [facility] [address] [place] [address] Shyann Eckert RN [address] [place] [address] Scheduled Orders Name Type Priority Associated Diagnoses Orde r Schedule HIV-1 RNA, Quantitative, Real-Time PCR Lab Routine Encounter for HIV pre-exposure prophylaxis Expected: 12/16/2024 (Approximate), Expires: 12/16/2025 RPR (Monitor) with Reflex to??Titer Lab Routine Encounter for HIV pre-exposure prophylaxis Expected: 12/16/2024 (Approximate), Expires: 12/16/2025 Hepatitis C Antibody with Reflex to HCV, RNA, Quantitative, Real-Time PCR Lab Routine Encounter for HIV pre-exposure prophylaxis Expected: 12/16/2024 (Approximate), Expires: 12/16/2025 documented as of this encounter Procedures Procedure Name Priority Date/Time Associated Diagnosis Comments POCT RAPID HIV SCREENING Routine 12/16/2024 11:12 AM EDT Encounter for HIV pre-exposure prophylaxis documented in this encounter Results * POCT RAPID HIV SCREENING (12/16/2024 11:12 AM EDT) Blood 12/16/2024 11:1 2 AM EDT Narrative Shyann Eckert, FELECIA - 12/16/2024 11:12 AM EDT NEGATIVE Briana Varela NP POINT OF CARE TEST ENTER/EDIT O RDERABLES Final Result documented in this encounter Visit Diagnoses Diagnosis Encounter for HIV pre-exposure prophylaxis- Primary documented in this encounter Administered Medications Inactive Administered Medications - up to 3 most recent administrations Medication Order MAR Action Action Date Dose Rate Site Cabotegravir ER Suspension Extended Release 600 mg 600 mg, Intramuscular, Once, On Sat12/16/24 at 1115, For 1 dose, Ventrogluteal.Indication s:Encounter for HIV pre-exposure prophylaxis Given 12/16/2024 11:15 AM EDT 600 mg Right Upper Buttock documented in this encounter Additional Health Concerns Assessment Noted Time PHQ-9 Depression Total Score: 1 12/18/19 24 3:08 PM EDT documented as of this encounter Care Teams Industrial Hygiene Technician Relationship Specialty Start Date End Date Briana Varela NP [address] [place] [address] PCP - General Family Medicine 06/11/23 documented as of this encounter
--- OUTSIDE RECORDS SUMMARY | 2024-12-16 12:37 | XMS_ITS | Encounter Summary ---
Author Organization [employer] Address [address] [facility] [address] [place] [address] Care Team Providers Care Mycology Teacher Name Role Phone Briana Varela NP Primary Care Provider [phone] Encounter Details Date Type Department Care Team (Latest Contact Info) Description 12/16/2024 Travel Social History Tobacco Use Types Packs/Day [...] Description 12/18/2024 10:30 AM EDT Office Visit [facility] MEDICINE [address] [place] [address] Briana Varela NP [address] [place] [address] 02/09/2025 10:30 AM EDT Clinical Support [address] [address] Shyann Eckert, RN [address] [place] [address] documented as of this encounter Visit Diagnoses Not on filedocumented in this encounter Additional Health Concerns Assessment Noted Time PHQ-9 Depression Total Score: 1 12/18/19 24 3:08 PM EDT documented as of this encounter Care Teams Mycology Teacher Relationship Specialty Start Date End Date Briana Varela NP [address] [place] [address] PCP - General Family Medicine 06/11/23 documented as of this encounter
--- OUTSIDE RECORDS SUMMARY | 2024-12-16 12:37 | XMS_ITS | Encounter Summary ---
Author Organization [employer] Address [address] [facility] [facility] [address] [facility] [address] [place] [address] Care Team Providers Care Lpn Private Duty Name Role Phone Briana Varela NP Primary Care Provider [phone] Reason for Visit * Reason Onset Date Comments Med Refill 07/16/2024 Encounter Details Date Type Department Care Team (Late st Contact Info) Description 07/16/2024 Refill [facility] MEDICINE [address] [place] [address] Briana Varela NP [address] [place] [address] Type 2 diabetes mellitus without complication, without long-term current use of insulin ([facility]) Social History Tobacco Use Types Packs/Day [...] Description 12/18/2024 10:30 AM EDT Office Visit [facility] MEDICINE [address] [place] [phone] Briana Varela NP [address] [place] [address] 02/09/2025 10:30 AM EDT Clinical Support [facility]INE [address] [place] [phone] Shyann Eckert RN [address] [place] [address] documented as of this encounter Visit Diagnoses Diagnosis Type 2 diabetes mellitus without complication, without long-term current use of insulin ([facility]) documented in this encounter Additional Health Concerns Assessment Noted Time PHQ-9 Depression Total Score: 1 04/17/20 24 3:08 PM EDT documented as of this encounter Care Teams Lpn Private Duty Relationship Specialty Start Date End Date Briana Varela NP [address] [place] [address] PCP - General Family Medicine 06/11/23 documented as of this encounter
--- OUTSIDE RECORDS SUMMARY | 2024-12-16 12:37 | XMS_ITS | Encounter Summary ---
Author Organization [employer] Address [address] [facility] [address] [facility] [address] [place] [address] Care Team Providers Care Cell Attendant Name Role Phone Briana Varela NP Primary Care Provider [phone] Reason for Visit * Reason Onset Date Comments Med Refill 09/28/2024 Encounter Details Date Type Department Care Team ([facility] st Contact Info) Description 09/28/2024 Refill [facility] [address] [place] [address] Briana Varela NP [address] [place] [address] Type 2 diabetes mellitus without complication, without long-term current use of insulin ([facility]) Social History Tobacco Use Types Packs/Day Years [...] is your housing situation today? I have luíca dean 12/10/[address] you [...] Description 12/18/2024 10:30 AM EDT Office Visit [facility] MEDICINE [address] [place] [address] Briana Varela NP [address] [place] [address] 02/09/2025 10:30 AM EDT Clinical Support [facility]INE [address] [place] [address] Shyann Eckert RN [address] [place] [address] documented as of this encounter Visit Diagnoses Diagnosis Type 2 diabetes mellitus without complication, without long-term current use of insulin ([facility]) documented in this encounter Additional Health Concerns Assessment Noted Time PHQ-9 Depression Total Score: 1 12/18/19 24 3:08 PM EDT documented as of this encounter Care Teams Cell Attendant Relationship Specialty Start Date End Date Briana Varela NP [address] [place] [address] PCP - General Family Medicine 06/11/23 documented as of this encounter
--- OUTSIDE RECORDS SUMMARY | 2024-12-16 12:37 | XMS_ITS | Clinical Summary ---
Author Organization [employer] Address [address] [facility] [address] [place] [address] Care Team Providers Care Trommel Tender Name Role Phone Briana Varela NP Primary Care Provider [phone] Allergies No known active allergies Medications Diclofenac Sodium (Voltaren) 1 % gelIndications: Acute midline thoracic back pain Apply 2 g topically if needed in the morning and at bedtime (muscle pain). 100 g 3 023 Active fluticasone (Flonase) 50 MCG/ACT nasal sprayIndication s:Seasonal allergic rhinitis, unspecified trigger INSTILL 2 SPRAYS IN EACH NOSTRIL ONCE DAILY IN THE MORNING 48 g 023 Active empagliflozin (Jardiance) 10 MGIndications:T ype 2 diabetes mellitus without complication, without long-term current use of insulin ([facility]) Take 1 tablet (10 mg) by mouth Once per day. 30 tablet 11 024 2024 Active FREESTYLE LITE test stripIndication s:Type 2 diabetes mellitus without complication, without long-term current use of insulin ([facility]) Use to test blood sugar two times daily 100 each 12 024 2024 Active Blood Glucose Monitoring Suppl (FreeStyle Tridell Lite) w/Device kitIndications: Type 2 diabetes mellitus without complication, without long-term current use of insulin ([facility]) Use to test blood sugar 2 times daily 1 kit 024 Active magnesium, as gluconate, (Magonate) 500 (27 Mg) MG tabletIndicatio ns:Burning sensation of lower extremity Take 1 tablet (27 mg) by mouth 2 times daily. 60 tablet 025 2025 Active olmesartan (Benicar) 40 MG tabletIndicatio ns:Essential hypertension Take 1 tablet (40 mg) by mouth Once per day. 30 tablet 2 025 2024 Active metFORMIN (Glucophage) 850 MG tabletIndicatio ns:Pre-diabetes TAKE 1 TABLET BY MOUTH WITH BREAKFAST 30 tablet 5 Active Alcohol Swabs 70 % padsIndications :Type 2 diabetes mellitus without complication, without long-term current use of insulin ([facility]) Use to test blood sugar 2 times daily 100 each Active Lancets miscIndications :Type 2 diabetes mellitus without complication, without long-term current use of insulin ([facility]) Use to test blood sugar 2 times daily 100 each Active Cabotegravir ER (Apretude) 600 MG/3ML Suspension Extended ReleaseIndicati ons:On pre-exposure prophylaxis for HIV Inject 600 mg into the muscle every 8 (eight) weeks. Ventrogluteal 3 mL 3 025 Active Dulaglutide (Trulicity) 0.75 MG/0.5ML solution auto-injectorIn dications:Type 2 diabetes mellitus without complication, without long-term current use of insulin (CMS/[facility]) Inject 0.75 mg under the skin 1 (one) time per week. INJECT ONE PEN (=0.75 MG) SUBCUTANEOUSLY ONCE A WEEK 2 mL 1 025 Active Dulaglutide (Trulicity) 0.75 MG/0.5ML solution auto-injectorIn dications:Type 2 diabetes mellitus without complication, without long-term current use of insulin ([facility]) Inject 0.75 mg under the skin 1 (one) time per week. INJECT ONE PEN (=0.75 MG) SUBCUTANEOUSLY ONCE A WEEK 2 mL 1 025 2024 Discontinued(R eorder (will not trigger notification to Pharmacy)) Hospital, Clinic, or Other Facility Administered Medication Ordered Dose Route Frequency Start Date End Date Status Cabotegravir ER Suspension Extended Release 600 mgIndications:Encounter for HIV pre-exposure prophylaxis 600 mg IM Once 12/16/2024 12/16/2024 Ended Active Problems Problem Noted Date Diagnosed [...] Encouraged to upload home BP log into [facility] for my review -microalbumin: see plan below [...] Encounters Date Type Department Care Team Description 12/16/2024 10:00 AM EDT Clinical Support [address] [address] Shyann Eckert RN Encounter for HIV pre-exposure prophylaxis (Primary Dx) 12/16/2024 Travel 12/07/[address] [address] Briana Varela NP Type 2 diabetes mellitus without complication, without long-term current use of insulin ([facility]) 12/03/[address] [address] Briana Varela NP Med Refill 11/16/2024 Orders Only [facility] [address] [place] [address] Briana Varela NP On pre-exposure prophylaxis for HIV 11/16/[address] [address] Briana Varela NP Prior Authorization (Jardiance) 11/13/2024 Orders Only [address] [address] Akira Islas, FELECIA 11/11/2024 10:00 AM EDT Clinical Support [address] [address] Shyann Eckert, FELECIA On pre-exposure prophylaxis for HIV (Primary Dx) 11/11/2024 Orders Only [address] [address] Briana Varela NP 11/11/2024 Travel 11/09/[address] [address] Briana Varela NP Type 2 diabetes mellitus without complication, without long-term current use of insulin (CMS/HCC); Burning sensation of lower extremity; On pre-exposure prophylaxis for HIV; Essential hypertension; Pre-diabetes 10/30/[address] [address] Shyann Eckert RN Injectable PrEP 10/23/[address] [address] Briana Varela NP Prior Authorization (Apretude) 10/09/2024 Refill [facility] [address] [place] [address] Briana Varela NP Type 2 diabetes mellitus without complication, without long-term current use of insulin (CMS/HCC); Burning sensation of lower extremity; Pre-diabetes 09/30/2024 Refill [facility] [address] [place] [address] Briana Varela NP Type 2 diabetes mellitus without complication, without long-term current use of insulin (CMS/HCC) 09/30/[address] [address] Akira Islas, FELECIA Injectable PrEP Communication 09/28/2024 Refill [facility] [address] [place] [address] Briana Varela NP Type 2 diabetes mellitus without complication, without long-term current use of insulin (CMS/HCC) 09/28/2024 Refill [facility] [address] [place] [address] Briana Varela NP Burning sensation of lower extremity; On pre-exposure prophylaxis for HIV; Essential hypertension; Pre-diabetes; Type 2 diabetes mellitus without complication, without long-term current use of insulin ([facility]) 09/24/2024 Telephone [facility] [address] [place] [address] Mary Santiago [place] december09/18/2024 Telephone [facility] [address] [place] [address] Shyann Eckert RN from Last 3 Months Immunizations Name Administration [...] Description 12/18/2024 10:30 AM EDT Office Visit [facility] [address] [place] [phone] Briana Varela NP [address] [place] [address] 02/09/2025 10:30 AM EDT Clinical Support [facility] [address] [place] [address] Shyann Eckert, RN [address] [place] [address] Health Maintenance Due Date Last Done Comments Eye Exam 2002 Family Planning (PISQ) 2007 COVID-19 Vaccine ( season) 2024 11/13/2021, 12/12/2020 Influenza Vaccine (#1) 2024 11/17/2021 SDOH Screening 12/09/2024 12/10/2023 Depression Screening 12/17/2024 12/18/2023, 12/18/19 24 Diabetes: Hemoglobin A1C 03/04/2025 025, 05/20/2024, 01/03/2024, Additional history exists Alcohol/Substance Use Screening 03/12/2025 03/12/2024 Diabetes: Foot Exam 09/04/2025 09/04/2024, 09/04/2024, 09/04/2024, Additional history exists Diabetes: Urine Protein Screening 09/04/2025 09/04/2024, 05/20/2024, 01/17/2024, Additional history exists Lipid Panel 09/04/2025 09/04/2024, 12/31, 10/17/2022, Additional history exists Tobacco Screening 09/04/2025 09/04/2024 DTaP/Tdap/Td Vaccines (2 - Td or Tdap) [...] 49) Years) Completed 07/01/2024 HIV Screening Completed 11/11/2024, 1205/2024, 08/10/2024, Additional history exists HIB Vaccines Aged Out [...] AM EDT Encounter for HIV pre-exposure prophylaxis POCT RAPID HIV SCREENING Routine 11/11/2024 11:29 AM EDT On pre-exposure prophylaxis for HIV HIV 1 RNA, QUANTITATIVE REAL TIME PCR Routine 11/11/2024 10:45 AM EDT CHLAMYDIA/GONORRHEA - URINE ([place] [facility]) Routine 11/11/2024 CHLAMYDIA/GONORRHEA THROAT SWAB ([facility]) Routine 11/11/2024 CHLAMYDIA/GONORRHEA RECTAL SWAB ([facility]) Routine 11/11/2024 ALBUMIN, RANDOM URINE W/CREATININE Routine 09/04/2024 10:52 AM EST Type 2 diabetes mellitus without complication, without long-term current use of insulin ([facility]/HCC) Essential hypertension HEMOGLOBIN A1C Routine 09/04/2024 10:52 AM EST Type 2 diabetes mellitus without complication, without long-term current use of insulin (CMS/HCC) Essential hypertension LIPID PANEL, STANDARD Routine 09/04/2024 10:52 AM EST Type 2 diabetes mellitus without complication, without long-term current use of insulin (CMS/HCC) Essential hypertension HEPATITIS C AB W/REFL TO HCV RNA, QN, PCR Routine 04/10/2024 2:24 PM EDT Encounter for HIV pre-exposure prophylaxis from Last 3 Months or Most Recently Relevant to Health Maintenance Results * POCT RAPID HIV SCREENING (12/16/2024 11:12 AM EDT) Only the most recent of2 resultswithin the time period is included. Blood 12/16/2024 11:1 2 AM EDT Narrative Shyann Eckert RN - 12/16/2024 11:12 AM EDT NEGATIVE Briana Martin CARLEE POINT OF CARE TEST ENTER/EDIT O RDERABLES Final Result * HIV-1 RNA, Quantitative, Real-Time PCR (11/11/2024 10:45 AM EDT) HIV RNA PCR Qn Copies NOT DETECTED NOT DETECTED copies/mL [facility] HIV RNA PCR Qn Log Copies NOT DETECTED NOT DETECTED [facility] Comment:Result Units: Log co pies/mLThis test was performed using Real-Time Polymerase ChainReaction.Reportable Range: 20 copies/mL to 10,000,000 copies/mL(1.30 log copies/mL to 7.00 log copies/mL).THIS TEST WAS PERFORMED AT:[facility] [place] [phone] SAVAGE MD 11/11/2024 10:4 5 AM EDT 11/11/2024 11:45 AM EDT Briana Martin CARLEE LAB BLOOD ORDERABLES Final Resu lt [facility] [address] [place] [phone] * Chlamydia/Gonorrhea, Rectal Swab ([facility]) (11/11/2024) Chlamydia Rectal Swab Negative Negative, Indeterminate, None Detected, Invalid, Specimen unsatisfactory for evaluation Gonorrhea Rectal Swab Negative Negative, Indeterminate, None Detected, Invalid, Specimen unsatisfactory for evaluation Swab 11/11/2024 Historical Provider LAB MICROBIOLOGY - GENERA L ORDERABLES Final Result * Chlamydia/Gonorrhea Throat Swab ([facility]) (11/11/2024) Chlamydia Throat Swab Negative Gonorrhea Throat Swab Negative Swab 11/11/2024 Historical Provider LAB MICROBIOLOGY - GENERA L ORDERABLES Final Result * Chlamydia/Gonorrhea, Urine ([facility]) (11/11/2024) Chlamydia, Urine Negative Negative, Indeterminate, None Detected, Invalid, Specimen unsatisfactory for evaluation, Weakly Positive Gonorrhea, Urine Negative Negative, Indeterminate, None Detected, Invalid, Specimen unsatisfactory for evaluation, Weakly Positive Urine 11/11/2024 Historical Provider LAB URINE ORDERABLES Briseida l Result * (ABNORMAL) Albumin, Random Urine W/Creatinine (09/04/2024 10:52 AM EST) Creatinine, Urine 142.09 mg/dL [facility] Microalbumin Urine 155.0 mg/L H [facility] Microalbum Creatinine Ratio Ur 109.0(H) <30 ug/mg cr [facility] Comment:Albumin/Creatinine R atio Reference Ranges: Normal: < 30 ug/mg creatinine Microalbuminuria: 30 - 300 ug/mg creatinineClinical Albuminuria: > 300 ug/mg creatinine Urine (Urine, Random) 09/04/2024 10:52 AM EST 09/04/2024 12:52 PM EST Briana Varela NP LAB URINE ORDERABLES Final Resu lt [facility] [address] [place] [phone] * (ABNORMAL) Hemoglobin A1c (09/04/2024 10:52 AM EST) Hemoglobin A1c 6.7(H) <6.0 % [facility] Comment:Hemoglobin A1C Refer ence Range Adults: 4.8 - 6.0 % Non diabetic: < 6.0 % Goal: < 7.0 %Additional Action Suggested: > 8.0 %Note: Hemoglobin A1c results are invalid for patients with abnormal amounts of HbF. Blood transfusions may impact the HbA1c concentration in the patient sample. Estimated Average Glucose 146 mg/dL [facility] Comment:eAG = Estimated ave rage glucose which is %A1C expressed asaverage glucose, using the formula of the Q4A-AnikdooIstgwcp Glucose study (ADAG), Diabetes Care, Vol.31,#8,Apr. 2007 Blood Venous blood specimen / Unknown 09/04/2024 10:52 AM EST 09/04/2024 12:58 PM EST us Briana Varela QUALITY ASSURANCE ASSESSOR LAB BLOOD ORDERABLES Final Resu lt [facility] [address] [place] [phone] * (ABNORMAL) Lipid Panel, Standard (09/04/2024 10:52 AM EST) Triglycerides 188(H) <150 mg/dL [facility] Comment:Desirable Triglyceri de: less than 150 mg/dLBorderline High Triglyceride 150-199 mg/dLHigh Triglyceride: 200-499 mg/dLVery High Triglyceride: greater than or equal to 5OO mg/dL Cholesterol 117 <200 mg/dL [facility] Comment:Desirable Cholestero l: less than 200 mg/dLBorderline High Cholesterol: 200-239 mg/dLHigh Cholesterol: greater than 239 mg/dL LDL Cholesterol Calculated 47 <100 mg/dL [facility] Comment:Desirable LDL: less than 100 mg/dLNear Optimal/Above Optimal LDL: 110- 129 mg/dLBorderline High LDL: 130-159 mg/dLHigh LDL: 160-189 mg/dLVery High LDL: greater than or equal to 190 mg/dL HDL Cholesterol 33(L) >40 mg/dL [facility] Comment:Desirable HDL: great er than 40 mg/dL Note: This HDL assay may give artificially low results in patients with liver disease. Blood Venous blood specimen / Unknown 09/04/2024 10:52 AM EST 09/04/2024 12:[address] [facility] QUALITY ASSURANCE ASSESSOR LAB BLOOD ORDERABLES Final Resu lt Performing Organization Address [facility]/ZIP Co de Phone Number [facility] [address] [place] [phone] * Hepatitis C Antibody with Reflex to HCV, RNA, Quantitative, Real-Time PCR (04/10/2024 2:24 PM EDT) Hepatitis C Antibody Nonreactive Nonreactive [facility] Comment:Antibodies to HCV no t detected; does not exclude early acuteHCV infection. Blood Venous blood specimen / Unknown 04/10/2024 2:24 PM EDT 04/10/2024 3:[address] [facility] QUALITY ASSURANCE ASSESSOR LAB BLOOD ORDERABLES Final Resu lt Performing Organization Address [facility] Co de Phone Number [facility] [address] [place] [phone] from Last 3 Months or Most Recently Relevant to Health Maintenance Insurance [facility] HS FULL Care Teams Trommel Tender Relationship Specialty Start Date End Date Briana Varela NP [address] [place] [address] PCP - General Family Medicine 06/11/23
--- OUTSIDE RECORDS SUMMARY | 2024-12-16 12:37 | XMS_ITS | Encounter Summary ---
Author Organization [employer] Address [address] [facility] [address] [address] [place] [address] Care Team Providers Care Mapping Editor Name Role Phone Briana Varela NP Primary Care Provider [phone] Reason for Visit * Reason Onset Date Comments Med Refill 05/21/2024 Encounter Details Date Type Department Care Team (Late st Contact Info) Description 05/21/2024 Refill [facility] [address] [place] [address] Briana Varela NP [address] [place] [address] Burning sensation of lower extremity; On pre-exposure [...] EDT Office Visit [facility] [address] [place] [phone] Briana Varela NP [address] [place] [address] 02/09/2025 10:30 AM EDT Clinical Support [facility] [address] [place] [address] Shyann Eckert RN [address] [place] [address] documented as of this encounter Visit Diagnoses Diagnosis Burning sensation of lower extremity On pre-exposure prophylaxis for HIV Essential hypertension Unspecified essential hypertension Pre-diabetes Other abnormal glucose documented in this encounter Additional Health Concerns Assessment Noted Time PHQ-9 Depression Total Score: 1 12/18/19 24 3:08 PM EDT documented as of this encounter Care Teams Mapping Editor Relationship Specialty Start Date End Date Briana Varela NP [address] [place] [phone] PCP - General Family Medicine 06/11/23 documented as of this encounter
--- OUTSIDE RECORDS SUMMARY | 2024-12-16 12:37 | XMS_ITS | Encounter Summary ---
Author Organization [employer] Address [address] [facility] 7t [place] [address] Care Team Providers Care Manager Wind Name Role Phone RogelioJacklyn corral Clarita SIEGELP Primary Care Provider [phone] Briana Varela NP Primary Care Provider [phone] Encounter Details Date Type Department Care Team (Late st Contact Info) Description 10/01/2022 Orders Only [facility] [address] [place] [address] Ailyn Arshad LPN Social History Tobacco Use [...] Description 12/18/2024 10:30 AM EDT Office Visit [facility] [address] [place] [address] Briana Varela NP [address] [place] [address] 02/09/2025 10:30 AM EDT Clinical Support [facility] [address] [place] [address] Shyann Eckert, RN [address] [place] [address] documented as of this encounter Visit Diagnoses Not on filedocumented in this encounter Care Teams Manager Wind Relationship Specialty Start Date End Date Jacklny Mercado FNP PCP - General Family Medicine 10/24/21 06/10/23 Briaan Varela NP [address] [place] [address] PCP - General Family Medicine 06/11/23 documented as of this encounter
[2024-12-16 12:40] LABS: ~HepC Num1 0.22 S/CO (0.00-0.79); ~Hepatitis C Antibody Nonreactive (Nonreactive)
[2024-12-17 15:18] LABS: RPR Rapid Plasma Reagin NON-REACTIVE (NON-REACTIVE)
[2024-12-17 15:23] LABS: HIV RNA PCR Qn Copies NOT DETECTED copies/mL (NOT DETECTED); HIV RNA PCR Qn Log Copies NOT DETECTED (NOT DETECTED)
== END 2024-12-16 10:41 | disposition home or self-care (01) ==
LOC: HO.HHCL 10:40
PROVIDERS: Visit Provider Nurse Practitioner
DX: Z29.81 Encounter for HIV pre-exposure prophylaxis (principal)
CPT/HCPCS: 36415; 86592; 86803; 87536

== ENCOUNTER 2025-01-15 10:14 | Outpatient (REF) | payer MEDICAID, OTHER, SELFPAY ==
--- OUTSIDE RECORDS SUMMARY | 2025-01-15 10:34 | XMS_ITS | Encounter Summary ---
Author Organization [email or web address] Address [address] [facility] [address] [place] [address] Care Team Providers Care Pin Feather Machine Operator Name Role Phone Briana Varela NP Primary Care Provider [phone] Reason for Visit * Reason Onset Date Comments Appointment Request 12/17/2024 Encounter Details Date Type Department Care Team ([facility] st Contact Info) Description 12/17/2024 Telephone [facility] [address] [place] [address] Briana Varela NP [address] [place] [address] Appointment Request Social History Tobacco Use Types Packs/Day Years [...] encounter Miscellaneous Notes * Telephone Encounter - Marjorie Graf - 12/17/2024 11:21 AM EDT Tc from pt attempting to reschedule Physical. Refrigeration Houseman unable to find a slot documented in this encounter Plan of Treatment Upcoming Encounters Date Type Department Care Team (Late st Contact Info) Description 02/09/2025 10:30 AM EDT Clinical Support [facility] [address] [place] [address] Shyann Eckert, FELECIA [address] [place] [address] documented as of this encounter Visit Diagnoses Not on filedocumented in this encounter Additional Health Concerns Assessment Noted Time PHQ-9 Depression Total Score: 1 12/18/19 24 3:08 PM EDT documented as of this encounter Care Teams Pin Feather Machine Operator Relationship Specialty Start Date End Date Briana Varela NP [address] [place] [address] PCP - General Family Medicine 06/11/23 documented as of this encounter
--- OUTSIDE RECORDS SUMMARY | 2025-01-15 10:34 | XMS_ITS | Encounter Summary ---
Author Organization [employer] Address [address] [address] [place] [address] Care Team Providers Care Mobile Sales Assistant Name Role Phone Briana Varela NP Primary Care Provider [phone] Reason for Visit * Reason Onset Date Comments Med Refill 11/09/2024 Encounter Details Date Type Department Care Team (Late st Contact Info) Description 11/09/2024 Refill [facility] [address] [place] [address] Briana Varela NP [address] [place] [address] Type 2 diabetes mellitus without complication, without long-term current use of insulin ([facility]); Burning sensation of lower extremity; On pre-exposure [...] Description 02/09/2025 10:30 AM EDT Clinical Support [facility] [address] [place] [address] Shyann Eckert, FELECIA [address] [place] [address] documented as of this encounter Visit Diagnoses Diagnosis Type 2 diabetes mellitus without complication, without long-term current use of insulin ([facility]) Burning sensation of lower extremity On pre-exposure prophylaxis for HIV Essential hypertension Unspecified essential hypertension Pre-diabetes Other abnormal glucose documented in this encounter Additional Health Concerns Assessment Noted Time PHQ-9 Depression Total Score: 1 12/18/19 24 3:08 PM EDT documented as of this encounter Care Teams Mobile Sales Assistant Relationship Specialty Start Date End Date Briana Varela NP [address] [place] [phone] PCP - General Family Medicine 06/11/23 documented as of this encounter
--- OUTSIDE RECORDS SUMMARY | 2025-01-15 10:34 | XMS_ITS | Encounter Summary ---
Author Organization [employer] Address [address] [place] [address] Care Team Providers Care Cleaning Professional Name Role Phone Briana Varela NP Primary Care Provider [phone] Reason for Visit * Reason Comments Annual Exam Encounter Details Date Type Department Care Team ([facility] st Contact Info) Description 01/13/2025 2:45 PM EDT Office Visit [facility] MED[facility]INE [address] [place] [address] Briana Varela NP [address] [place] [address] Encounter for well adult exam without abnormal findings (Primary Dx); Essential hypertension; Type 2 diabetes mellitus without complication, without long-term current use of insulin ([facility]); Seasonal allergic rhinitis, unspecified trigger Social History Tobacco Use Types Packs/Day Years [...] Answer Date Recorded Patient Health Questionnaire-9 Score 0 01/13/2025 Patient Health Questionnaire-9 Score 0 01/13/2025 Last PHQ-9: Questionnaire Data Not on file 0 01/13/2025 Housing Stability Answer Date Recorded What is your housing situation today? I have lucía sing 01/06/[address] you li ve. Do you have problems with any of the following? None of the above 01/06/2025 Food Insecurity Answer Date Recorded Within the past 12 months, y ou worried that your food would run out before you got money to buy more: Never True 01/06/2025 Within the past 12 months,th e food you bought just didn't last and you didn't have enough money to get more: Never True 03/2025 Transportation Answer Date Recorded In the past 12 months, has l ack of transportation kept you from medical appts, meetings, work or from getting things needed for daily living? No 01/06/2025 Utilities Answer Date Recorded In the past 12 months, has t he electric, gas, oil or water company threatened to shut off services in your home? Yes 01/06/2025 Depression Answer Date Recorded Patient Health Questionnaire-2 Score 0 01/13/2025 Internet Access Answer Date Recorded Internet Access Q1 Yes 01/06/2025 Internet Access Q2 Not on file 01/06/2025 Sex and Gender Information Value Date Recorded Sex Assigned at Male 07/02/2022 10:40 AM EDT Legal Sex Male 10:40 AM EDT Gender Identity Other 05/19/2024 11:18 PM EDT Sexual Orientation Transgender Female 08/09/2024 10:11 PM EST Sexual Orientation [place] 08/09/2024 10 :11 PM EST Sexual Orientation Queer 08/09/2024 10 :11 PM EST documented as of this encounter Last Filed Vital Signs Vital Sign Reading Time Taken Comments Blood Pressure 124/76 01/13/2025 3:58 PM EDT Pulse 104 01/13/2025 3:18 PM EDT Temperature 36.9 ??C (98.4 ??F) 01/13/2025 3:18 PM ED T Respiratory Rate 26 01/13/2025 3:18 PM EDT Oxygen Saturation 94% 01/13/2025 3:18 PM EDT Inhaled Oxygen Concentration - - Weight 171 kg (376 lb 6.4 oz) 01/13/2025 3:18 PM EDT Height 185.4 cm (6' 1 ) 01/13/2025 3:18 PM EDT Body Mass Index 49.66 01/13/2025 3:18 PM EDT documented in this encounter Functional Status * Over the past 2 weeks, how often have you been bothered by any of the following problems? Question Answer Date of Assessment Author Patient Health Questionnaire -2 Score 0 01/13/2025 4:08 PM EDT Mary Santiago MA * Little interest or pleasure in doing things Answer Date of Assessment Author Not at all 01/13/2025 4:08 PM EDT Mary Santiago MA * Feeling down, depressed, or hopeless Answer Date of Assessment Author Not at all 01/13/2025 4:08 PM EDT Mary Santiago MA * Trouble falling or staying asleep, or sleeping too much Answer Date of Assessment Author Not at all 01/13/2025 4:08 PM EDT Mary Santiago MA * Feeling tired or having little energy Answer Date of Assessment Author Not at all 01/13/2025 4:08 PM EDT Mary Santiago MA * Poor appetite or overeating Answer Date of Assessment Author Not at all 01/13/2025 4:08 PM EDT Mary Santiago MA * Feeling bad about yourself - or that you are a failure or have let yourself or your family down Answer Date of Assessment Author Not at all 01/13/2025 4:08 PM EDT Mary Santiago MA * Trouble concentrating on things, such as reading the newspaper or watching television Answer Date of Assessment Author Not at all 01/13/2025 4:08 PM EDT Mary Santiago MA * Moving or speaking so slowly that other people could have noticed? Or the opposite - being so fidgety or restless that you have been moving around a lot more than usual. Answer Date of Assessment Author Not at all 01/13/2025 4:08 PM EDT Mary Santiago MA * Thoughts that you would be better off or hurting yourself in some way Answer Date of Assessment Author Not at all 01/13/2025 4:08 PM EDT Mary Santiago MA * Patient Health Questionnaire-9 Score Answer Date of Assessment Author 0 01/13/2025 4:08 PM EDT Mary Santiago MA * Over the last 2 weeks, how often have you been bothered by any of the following problems? Question Answer Date of Assessment Author Feeling nervous, anxious, or on edge 0 01/13/2025 4:08 PM EDT Mary Santaigo MA Not being able to stop or co ntrol worrying 0 01/13/2025 4:08 PM EDT Mary Santiago MA Worrying too much about diff erent things 0 01/13/2025 4:08 PM EDT Mary Santiago MA Trouble relaxing 0 01/13/2025 4:08 PM EDT Mary Mei MA Being so restless that it is hard to sit still 0 01/13/2025 4:08 PM EDT Mary Santiago MA Becoming easily annoyed or irritable 0 01/13/2025 4:08 PM EDT Mary Santiago MA Feeling afraid as if somethi ng awful might happen 0 01/13/2025 4:08 PM EDT Mary Santiago MA ANNMARIE-7 Total Score 0 01/13/2025 4:08 PM EDT Mary Santiago MA documented as of this encounter Plan of Treatment Upcoming Encounters Date Type Department Care Team (Late st Contact Info) Description 02/09/2025 10:30 AM EDT Clinical Support [facility] MEDICINE [address] [place] [address] Shyann Eckert, RN [address] [place] [address] Scheduled Orders Name Type Priority Associated Diagnoses Orde r Schedule Lipid Panel, Standard Lab Routine Type 2 diabetes mellitus without complication, without long-term current use of insulin ([facility]) Expected: 01/13/2025 (Approximate), Expires: 01/13/2026 Hemoglobin A1c Lab Routine Type 2 diabetes mellitus without complication, without long-term current use of insulin ([facility]) Expected: 01/13/2025 (Approximate), Expires: 01/13/2026 Basic Metabolic Panel Lab Routine Essential hypertension Type 2 diabetes mellitus without complication, without long-term current use of insulin ([facility]) Expected: 01/13/2025 (Approximate), Expires: 01/13/2026 documented as of this encounter Procedures Procedure Name Priority Date/Time Associated Diagnosis Comments POCT GLUCOSE Routine 01/13/2025 3:26 PM EDT Type 2 diabetes mellitus without complication, without long-term current use of insulin ([facility]) documented in this encounter Results * (ABNORMAL) POCT Glucose (01/13/2025 3:26 PM EDT) [facility] Glucose Blood, POC 205(A) 60 - 200 mg/dL QC Media Lot # [id number] Lot# Expiration Date [id number] Blood Capillary blood specimen / Unknown 01/13/2025 3:26 PM EDT Briana Varela NP POINT OF CARE TEST ENTER/EDIT O RDERABLES Final Result documented in this encounter Visit Diagnoses Diagnosis Encounter for well adult exam without abnormal findings- Primary Essential hypertension Unspecified essential hypertension Type 2 diabetes mellitus without complication, without long-term current use of insulin ([facility]) Seasonal allergic rhinitis, unspecified trigger documented in this encounter Additional Health Concerns Assessment Noted Time PHQ-9 Depression Total Score: 0 01/14/20 25 4:08 PM EDT documented as of this encounter Care Teams Cleaning Professional Relationship Specialty Start Date End Date Briana Varela NP [address] [place] [id number] PCP - General Family Medicine 06/11/23 documented as of this encounter
--- OUTSIDE RECORDS SUMMARY | 2025-01-15 10:34 | XMS_ITS | Encounter Summary ---
Author Organization [email or web address] Address [address] [place] [address] Care Team Providers Care Botany Laboratory Assistant Name Role Phone Briana Varela NP Primary Care Provider [phone] Encounter Details Date Type Department Care Team (Latest Contact Info) Description 01/13/2025 Travel Social History Tobacco Use Types Packs/Day [...] housing situation today? I have lucía dean 01/06/[address] you li [...] PM EST documented as of this encounter Functional Status * Over the [...] at all 01/13/2025 4:08 PM EDT Mary aSntiago MA * Feeling tired or having little energy Answer Date of Assessment Author Not at all 01/13/2025 4:08 PM ARMINDAT Mary Santiago MA * Poor appetite or [...] edge 0 01/13/2025 4:08 PM EDT Mary Santiago MA Not being able to stop or co ntrol worrying 0 01/13/2025 4:08 PM EDT Mary Santiago MA Worrying too much about diff erent things 0 01/13/2025 4:08 PM EDT Mary Santiago MA Trouble relaxing 0 01/13/2025 4:08 PM EDT Mary Mei MA Being so restless that it is hard to sit still 0 01/13/2025 4:08 PM ARMINDAT Mary Santiago MA Becoming easily annoyed or irritable 0 01/13/2025 4:08 PM EDT Mary Santiago MA Feeling afraid as if somethi ng awful might happen 0 01/13/2025 4:08 PM ARMINDAT Mary Santiago MA ANNMARIE-7 Total Score 0 01/13/2025 4:08 PM EDT Mary Santiago MA documented as of this encounter Plan of Treatment Upcoming Encounters Date Type Department Care Team (Late st Contact Info) Description 02/09/2025 10:30 AM EDT Clinical Support [facility] MEDICINE [address] [place] [address] Shyann Eckert, RN [address] [place] [address] documented as of this encounter Visit Diagnoses Not on filedocumented in this encounter Additional Health Concerns Assessment Noted Time PHQ-9 Depression Total Score: 0 01/14/20 25 4:08 PM EDT documented as of this encounter Care Teams Botany Laboratory Assistant Relationship Specialty Start Date End Date Briana Varela NP [address] [place] [address] PCP - General Family Medicine 06/11/23 documented as of this encounter
--- OUTSIDE RECORDS SUMMARY | 2025-01-15 10:34 | XMS_ITS | Encounter Summary ---
Author Organization [employer] Address [address] [place] [address] Care Team Providers Care Mainframe Systems Programmer Name Role Phone Briana Varela NP Primary Care Provider [phone] Reason for Visit * Reason Onset Date Comments Med Refill 08/13/2024 Encounter Details Date Type Department Care Team ([facility] st Contact Info) Description 08/13/2024 Refill [facility] [address] [place] [address] Briana Varela NP [address] [place] [address] Type 2 diabetes mellitus without complication, without long-term current use of insulin ([facility]) Social History Tobacco Use Types Packs/Day Years [...] Description 02/09/2025 10:30 AM EDT Clinical Support [facility] MEDICINE [address] [place] [address] Shyann Eckert RN [address] [place] [address] documented as of this encounter Visit Diagnoses Diagnosis Type 2 diabetes mellitus without complication, without long-term current use of insulin ([facility]) documented in this encounter Additional Health Concerns Assessment Noted Time PHQ-9 Depression Total Score: 1 12/18/19 24 3:08 PM EDT documented as of this encounter Care Teams Mainframe Systems Programmer Relationship Specialty Start Date End Date Briana Varela NP [address] [place] [address] PCP - General Family Medicine 06/11/23 documented as of this encounter
--- OUTSIDE RECORDS SUMMARY | 2025-01-15 10:34 | XMS_ITS | Clinical Summary ---
Author Organization [employer] Address [address] [place] [address] Care Team Providers Care Baker Biscuit Name Role Phone Briana Varela NP Primary Care Provider [phone] Allergies No known active allergies Medications Diclofenac Sodium (Voltaren) 1 % gelIndications: Acute midline thoracic back pain Apply 2 g topically if needed in the morning and at bedtime (muscle pain). 100 g 3 023 Active empagliflozin (Jardiance) 10 MGIndications:T ype 2 diabetes mellitus without complication, without long-term current use of insulin ([facility]) Take 1 tablet (10 mg) by mouth Once per day. 30 tablet 11 024 2024 Active FREESTYLE LITE test stripIndication s:Type 2 diabetes mellitus without complication, without long-term current use of insulin ([facility]) Use to test blood sugar two times daily 100 each 12 024 2024 Active Blood Glucose Monitoring Suppl (FreeStyle [place] Lite) w/Device kitIndications: Type 2 diabetes mellitus without complication, without long-term current use of insulin ([facility]) Use to test blood sugar 2 times daily 1 kit 024 Active magnesium, as gluconate, (Magonate) 500 (27 Mg) MG tabletIndicatio ns:Burning sensation of lower extremity Take 1 tablet (27 mg) by mouth 2 times daily. 60 tablet 11 025 2025 Active Alcohol Swabs 70 % padsIndications :Type 2 diabetes mellitus without complication, without long-term current use of insulin ([facility]) Use to test blood sugar 2 times daily 100 each 11 025 Active Lancets miscIndications :Type 2 diabetes mellitus without complication, without long-term current use of insulin ([facility]) Use to test blood sugar 2 times daily 100 each 11 025 Active Cabotegravir ER (Apretude) 600 MG/3ML Suspension Extended ReleaseIndicati ons:On pre-exposure prophylaxis for HIV Inject 600 mg into the muscle every 8 (eight) weeks. Ventrogluteal 3 mL 3 025 Active Dulaglutide (Trulicity) 0.75 MG/0.5ML solution auto-injectorIn dications:Type 2 diabetes mellitus without complication, without long-term current use of insulin ([facility]) Inject 0.75 mg under the skin 1 (one) time per week. INJECT ONE PEN (=0.75 MG) SUBCUTANEOUSLY ONCE A WEEK 2 mL 1 025 Active olmesartan (BENIcar) 40 MG tabletIndicatio ns:Essential hypertension TAKE 1 TABLET BY MOUTH EVERY DAY 90 tablet 1 025 Active metFORMIN (Glucophage) 850 MG tabletIndicatio ns:Pre-diabetes TAKE 1 TABLET BY MOUTH WITH BREAKFAST 90 tablet 1 025 Active fluticasone (Flonase) 50 MCG/ACT nasal sprayIndication s:Seasonal allergic rhinitis, unspecified trigger Administer 1 spray into each nostril Once per day. Shake gently. Before first use, prime pump. After use, clean tip and replace cap. 48 g 025 Active cetirizine (ZyrTEC) 10 MG tabletIndicatio ns:Seasonal allergic rhinitis, unspecified trigger Take 1 tablet (10 mg) by mouth Once per day. 90 tablet 2 025 2025 Active fluticasone (Flonase) 50 MCG/ACT nasal sprayIndication s:Seasonal allergic rhinitis, unspecified trigger INSTILL 2 SPRAYS IN EACH NOSTRIL ONCE DAILY IN THE MORNING 48 g 023 2024 Discontinued(R eorder (will not trigger notification to Pharmacy)) olmesartan (Benicar) 40 MG tabletIndicatio ns:Essential hypertension Take 1 tablet (40 mg) by mouth Once per day. 30 tablet 2 025 2024 Discontinued metFORMIN (Glucophage) 850 MG tabletIndicatio ns:Pre-diabetes TAKE 1 TABLET BY MOUTH WITH BREAKFAST 30 tablet 5 025 2024 Discontinued(R eorder (will not trigger [...] Encouraged to upload home BP log into [employer] for my review -microalbumin: see plan below [...] Encounters Date Type Department Care Team Description 01/13/2025 2:45 PM EDT Office Visit [facility] [address] [place] [address] Briana Varela NP Encounter for well adult exam without abnormal findings (Primary Dx); Essential hypertension; Type 2 diabetes mellitus without complication, without long-term current use of insulin ([facility]); Seasonal allergic rhinitis, unspecified trigger 01/13/2025 Travel 01/12/2025 Telephone [facility] [address] [place] [address] Briana Varela NP Chart Prep 01/06/2025 Patient Outreach [facility] [address] [place] [address] Briana Varela NP Pre-visit Planning (SDOH negative. Tobacco screening positive. ) 01/01/2025 Refill [facility] [place] [address] Briana Varela NP Type 2 diabetes mellitus without complication, without long-term current use of insulin (CMS/HCC); Pre-diabetes; On pre-exposure prophylaxis for HIV; Essential hypertension 12/31/[address] [address] Briana Varela NP Essential hypertension 12/24/2024 Orders Only [address] [address] Ngozi Singh RN 12/17/[address] [address] Mary Santiago [place] resheduled appt 12/17/[address] [address] Briana Varela NP Appointment Request 12/16/2024 10:00 AM EDT Clinical Support [address] [address] Shyann Eckert, FELECIA Encounter for HIV pre-exposure prophylaxis (Primary Dx) 12/16/2024 Orders Only [address] [address] Briana Varela NP 12/16/2024 Travel 12/07/[address] [address] Briana Varela NP Type 2 diabetes mellitus without complication, without long-term current use of insulin (CMS/HCC) 12/03/[address] [address] Briana Varela NP Med Refill 11/16/2024 Orders Only [address] [address] Briana Varela NP On pre-exposure prophylaxis for HIV 11/16/[address] [address] Briana Varela NP Prior Authorization (Jardiance) 11/13/2024 Orders Only [address] [address] Akira Islas RN 11/11/2024 10:00 AM EDT Clinical Support [address] [address] Shyann Eckert, FELECIA On pre-exposure prophylaxis for HIV (Primary Dx) 11/11/2024 Orders Only [address] [address] Briana Varela NP 11/11/2024 Travel 11/09/[address] [address] Briana Varela NP Type 2 diabetes mellitus without complication, without long-term current use of insulin ([facility]); Burning sensation of lower extremity; On pre-exposure prophylaxis for HIV; Essential hypertension; Pre-diabetes 10/30/[address] [address] Shyann Eckert, FELECIA Injectable PrEP 10/23/[address] [address] Briana Varela NP Prior Authorization (Apretude) from Last 3 Months Immunizations Immunization Administration Dates Next Due Hep B, adult [...] Mass Index 49.66 01/13/2025 3:18 PM EDT Plan of Treatment Upcoming Encounters Date Type Department Care Team (Late st Contact Info) Description 02/09/2025 10:30 AM EDT Clinical Support [facility] [address] [place] [address] Shyann Eckert, RN [address] [place] [address] Health Maintenance Due Date Last Done Comments Eye Exam 2002 Family Planning (PISQ) 2007 COVID-19 Vaccine ( season) 2024 11/13/2021, 12/12/2020 Influenza Vaccine (#1) 2024 11/17/2021 Diabetes: Hemoglobin A1C 03/04/2025 025, 05/20/2024, 01/03/2024, Additional history exists Alcohol/Substance Use Screening 03/12/2025 03/12/2024 Diabetes: Foot Exam 09/04/2025 09/04/2024, 09/04/2024, 09/04/2024, Additional history exists Diabetes: Urine Protein Screening 09/04/2025 09/04/2024, 05/20/2024, 01/17/2024, Additional history exists Lipid Panel 09/04/2025 09/04/2024, 12/31, 10/17/2022, Additional history exists SDOH Screening 01/06/2026 01/06/2025 Depression Screening 01/13/2026 01/13/2025, 01/14/20 25 Tobacco Screening 01/13/2026 01/13/2025 DTaP/Tdap/Td Vaccines (2 - Td or Tdap) 10/09/2033 10/09/2023 Zoster Vaccines (1 of 2) 2042 RSV Patients and Patients Aged 60 years or older (1 - 1-dose 75+ series) 2067 Hepatitis B Vaccines Completed 04/08/2024, 11/06/2023, 10/09/2023 Pneumococcal Vaccine: Pediatrics (0 to 5 Years) and At-Risk Patients (6 to 49) Years) Completed 07/01/2024 HIV Screening Completed 12/16/2024, 10/31, 08/10/2024, Additional history exists Hepatitis C Screening Completed 12/16/2024 , 04/10/2024, 01/03/2024, Additional history exists HIB Vaccines Aged Out [...] patient's age to complete this topic Meningococcal B Vaccine Aged Out No l onger eligible based on patient's age to complete [...] without long-term current use of insulin ([facility]) POCT RAPID HIV SCREENING Routine 12/16/2024 11:12 AM EDT Encounter for HIV pre-exposure prophylaxis HIV 1 RNA, QUANTITATIVE REAL TIME PCR Routine 12/16/2024 10:42 AM EDT RPR (MONITOR) W/REFL TITER Routine 12/16/2024 10:42 AM EDT HEPATITIS C AB W/REFL TO HCV RNA, QN, PCR Routine 12/16/2024 10:42 AM EDT POCT RAPID HIV SCREENING Routine 11/11/2024 11:29 AM EDT On pre-exposure prophylaxis for HIV HIV 1 RNA, QUANTITATIVE REAL TIME PCR Routine 11/11/2024 10:45 AM EDT CHLAMYDIA/GONORRHEA - URINE ([place] [facility]) Routine 11/11/2024 CHLAMYDIA/GONORRHEA - URINE ([place] [facility]) Routine 11/11/2024 CHLAMYDIA/GONORRHEA THROAT SWAB ([place] D[facility]) Routine 11/11/2024 CHLAMYDIA/GONORRHEA RECTAL SWAB ([place] D[facility]) Routine 11/11/2024 CHLAMYDIA/GONORRHEA THROAT SWAB ([place] D[facility]) Routine 11/11/2024 CHLAMYDIA/GONORRHEA RECTAL SWAB ([place] D[facility]) Routine 11/11/2024 ALBUMIN, RANDOM URINE W/CREATININE Routine 09/04/2024 10:52 AM EST Type 2 diabetes mellitus without complication, without long-term current use of insulin ([facility]) Essential hypertension HEMOGLOBIN A1C Routine 09/04/2024 10:52 AM EST Type 2 diabetes mellitus without complication, without long-term current use of insulin ([facility]) Essential hypertension LIPID PANEL, STANDARD Routine 09/04/2024 10:52 AM EST Type 2 diabetes mellitus without complication, without long-term current use of insulin ([facility]) Essential hypertension from Last 3 Months or Most Recently Relevant to Health Maintenance Results * (ABNORMAL) POCT Glucose (01/13/2025 3:26 PM EDT) [facility] Glucose Blood, POC 205(A) 60 - 200 mg/dL QC Media Lot # [id number] Lot# Expiration Date [id number] Blood Capillary blood specimen / Unknown 01/13/2025 3:26 PM EDT us Briana Varela NP POINT OF CARE TEST ENTER/EDIT O RDERABLES Final Result * POCT RAPID HIV SCREENING (12/16/2024 11:12 AM EDT) Only the most recent of2 resultswithin the time period is included. Blood 12/16/2024 11:1 2 AM EDT Narrative Shyann Eckert RN - 12/16/2024 11:12 AM EDT NEGATIVE Briana Varela NP POINT OF CARE TEST ENTER/EDIT O RDERABLES Final Result * Hepatitis C Antibody with Reflex to HCV, RNA, Quantitative, Real-Time PCR (12/16/2024 10:42 AM EDT) [facility] Hepatitis C Antibody Nonreactive Nonreactive [facility] Comment:Antibodies to HCV no t detected; does not exclude early acuteHCV infection. 12/16/2024 10:4 2 AM EDT 12/16/2024 11:14 AM EDT us Briana Varela NP LAB BLOOD ORDERABLES Final Resu lt [facility] [address] [place] [address] [phone] * HIV-1 RNA, Quantitative, Real-Time PCR (12/16/2024 10:42 AM EDT) Only the most recent of2 resultswithin the time period is included. HIV RNA PCR Qn Copies NOT DETECTED NOT DETECTED copies/mL [facility] HIV RNA PCR Qn Log Copies NOT DETECTED NOT DETECTED [facility] Comment:Result Units: Log co pies/mLThis test was performed using Real-Time Polymerase ChainReaction.Reportable Range: 20 copies/mL to 10,000,000 copies/mL(1.30 log copies/mL to 7.00 log copies/mL).THIS TEST WAS PERFORMED AT:[address] [place] [phone] SAVAGE MD 12/16/2024 10:4 2 AM EDT 12/16/2024 11:14 AM EDT Briana Mario LOGGING CREW SUPERVISOR LAB BLOOD ORDERABLES Final Resu lt Performing Organization Address [facility] [[email or web address]] de Phone Number [facility] [address] [place] [phone] * RPR (Monitor) with Reflex to??Titer (12/16/2024 10:42 AM EDT) RPR (Monitor) w/Refl Titer NON-REACTI VE NON-REACT ZENA [facility] Comment:THIS TEST WAS PERFOR MED AT:[facility] [place] [phone] SAVAGE MD Rapid Plasma Reagin Ab Titer TNP [facility] 12/16/2024 10:4 2 AM EDT 12/16/2024 11:14 AM EDT [facility] LAB BLOOD ORDERABLES Final Resu lt Performing Organization Address [facility] [[email or web address]] de Phone Number [facility] [address] [place] [phone] * Chlamydia/Gonorrhea, Rectal Swab ([place] [facility]) (11/11/2024) Only the most recent of2 resultswithin the time period is included. Chlamydia Rectal Swab Negative Negative, Indeterminate, None Detected, Invalid, Specimen unsatisfactory for evaluation Gonorrhea Rectal Swab Negative Negative, Indeterminate, None Detected, Invalid, Specimen unsatisfactory for evaluation Swab 11/11/2024 Historical Provider LAB MICROBIOLOGY - GENERA L ORDERABLES Edited Result - Final * Chlamydia/Gonorrhea Throat Swab ([place] [facility]) (11/11/2024) Only the most recent of2 resultswithin the time period is included. Chlamydia Throat Swab Negative Gonorrhea Throat Swab Negative Swab 11/11/2024 Historical Provider MD LAB MICROBIOLOGY - GENERA L ORDERABLES Final Result * Chlamydia/Gonorrhea, Urine ([place] [facility]) (11/11/2024) Only the most recent of2 resultswithin the time period is included. Chlamydia, Urine Negative Negative, Indeterminate, None Detected, Invalid, Specimen unsatisfactory for evaluation, Weakly Positive Gonorrhea, Urine Negative Negative, Indeterminate, None Detected, Invalid, Specimen unsatisfactory for evaluation, Weakly Positive Urine 11/11/2024 Historical Provider MD LAB URINE ORDERABLES Briseida l Result * (ABNORMAL) Albumin, Random Urine W/Creatinine (09/04/2024 10:52 AM EST) Creatinine, Urine 142.09 mg/dL [facility] Microalbumin Urine 155.0 mg/L [facility] Microalbum Creatinine Ratio Ur 109.0(H) <30 ug/mg cr [facility] Comment:Albumin/Creatinine R atio Reference Ranges: Normal: < 30 ug/mg creatinine Microalbuminuria: 30 - 300 ug/mg creatinineClinical Albuminuria: > 300 ug/mg creatinine Urine (Urine, Random) 09/04/2024 10:52 AM EST 09/04/2024 12:52 PM EST Briana Varela NP LAB URINE ORDERABLES Final Resu lt [facility] [address], [place] [phone] * (ABNORMAL) Hemoglobin A1c (09/04/2024 10:52 AM EST) Hemoglobin A1c 6.7(H) <6.0 % [facility] Comment:Hemoglobin A1C Refer ence Range Adults: 4.8 - 6.0 % Non diabetic: < 6.0 % Goal: < 7.0 %Additional Action Suggested: > 8.0 %Note: Hemoglobin A1c results are invalid for patients with abnormal amounts of HbF. Blood transfusions may impact the HbA1c concentration in the patient sample. Estimated Average Glucose 146 mg/dL [facility] Comment:eAG = Estimated ave rage glucose which is %A1C expressed asaverage glucose, using the formula of the Q4C-LcrtprgZurejvu Glucose study (ADAG), Diabetes Care, Vol.31,#8,Apr. 2007 Blood Venous blood specimen / Unknown 09/04/2024 10:52 AM EST 09/04/2024 12:58 PM EST Briana Varela LOGGING CREW SUPERVISOR LAB BLOOD ORDERABLES Final Resu lt [facility] [address] [place] [phone] * (ABNORMAL) Lipid Panel, Standard (09/04/2024 10:52 AM EST) Triglycerides 188(H) <150 mg/dL [facility] Comment:Desirable Triglyceri de: less than 150 mg/dLBorderline High Triglyceride 150-199 mg/dLHigh Triglyceride: 200-499 mg/dLVery High Triglyceride: greater than or equal to 5OO mg/dL Cholesterol 117 <200 mg/dL [facility] Comment:Desirable Cholestero l: less than 200 mg/dLBorderline High Cholesterol: 200-239 mg/dLHigh Cholesterol: greater than 239 mg/dL LDL Cholesterol Calculated 47 <100 mg/dL [facility] Comment:Desirable LDL: less than 100 mg/dLNear Optimal/Above Optimal LDL: 110- 129 mg/dLBorderline High LDL: 130-159 mg/dLHigh LDL: 160-189 mg/dLVery High LDL: greater than or equal to 190 mg/dL HDL Cholesterol 33(L) >40 mg/dL [facility] Comment:Desirable HDL: great er than 40 mg/dL Note: This HDL assay may give artificially low results in patients with liver disease. Blood Venous blood specimen / Unknown 09/04/2024 10:52 AM EST 09/04/2024 12:58 PM EST us Briana Nichole BEJARANO LAB BLOOD ORDERABLES Final Resu lt [facility] [address] [place] [address] [phone] from Last 3 Months or Most Recently Relevant to Health Maintenance Insurance [facility] [employer] FULL Care Teams Baker Biscuit Relationship Specialty Start Date End Date Briana Varela NP [address] [place] [address] PCP - General Family Medicine 06/11/23
--- OUTSIDE RECORDS SUMMARY | 2025-01-15 10:34 | XMS_ITS | Encounter Summary ---
Author Organization [employer] Address [address] [place] [address] Care Team Providers Care Career Coach Name Role Phone Briana Varela NP Primary Care Provider [phone] Reason for Visit * Reason Onset Date Comments Med Refill 07/16/2024 Encounter Details Date Type Department Care Team (Late st Contact Info) Description 07/16/2024 Refill [facility] [address] [place] [address] Briana Varela NP [address] [place] [address] Type 2 diabetes mellitus without complication, without long-term current use of insulin ([facility]) Social History Tobacco Use Types Packs/Day Years [...] Description 02/09/2025 10:30 AM EDT Clinical Support [facility] [address] [place] [address] Shyann Eckert RN [address] [place] [address] documented as of this encounter Visit Diagnoses Diagnosis Type 2 diabetes mellitus without complication, without long-term current use of insulin ([facility]) documented in this encounter Additional Health Concerns Assessment Noted Time PHQ-9 Depression Total Score: 1 12/18/19 24 3:08 PM EDT documented as of this encounter Care Teams Career Coach Relationship Specialty Start Date End Date Briana Varela NP [address] [place] [address] PCP - General Family Medicine 06/11/23 documented as of this encounter
--- OUTSIDE RECORDS SUMMARY | 2025-01-15 10:34 | XMS_ITS | Encounter Summary ---
Author Organization [employer] Address [address] [place] [address] Care Team Providers Care Tire Duster Name Role Phone Briana Varela NP Primary Care Provider [phone] Reason for Visit * Reason Onset Date Comments Med Refill 10/09/2024 Encounter Details Date Type Department Care Team (Late st Contact Info) Description 10/09/2024 Refill [facility] [address] [place] [address] Briana Varela NP [address] [place] [address] Type 2 diabetes mellitus without complication, without long-term current use of insulin ([facility]); Burning sensation of lower extremity; [...] Description 02/09/2025 10:30 AM EDT Clinical Support [facility] [address] [place] [address] Shyann Eckert RN [address] [place] [address] documented as of this encounter Visit Diagnoses Diagnosis Type 2 diabetes mellitus without complication, without long-term current use of insulin ([facility]) Burning sensation of lower extremity Pre-diabetes Other abnormal glucose documented in this encounter Additional Health Concerns Assessment Noted Time PHQ-9 Depression Total Score: 1 12/18/19 24 3:08 PM EDT documented as of this encounter Care Teams Tire Duster Relationship Specialty Start Date End Date Briana Varela NP [address] [place] [address] PCP - General Family Medicine 06/11/23 documented as of this encounter
--- OUTSIDE RECORDS SUMMARY | 2025-01-15 10:34 | XMS_ITS | Encounter Summary ---
Author Organization [employer] Address [address] [place] [address] Care Team Providers Care Lap Cutter Truer Operator Name Role Phone Briana Varela NP Primary Care Provider [phone] Reason for Visit * Reason Onset Date Comments Med Refill 09/28/2024 Encounter Details Date Type Department Care Team ([facility] st Contact Info) Description 09/28/[address] [facility] [address] [place] [address] Briana Varela NP [address] [place] [address] Type 2 diabetes mellitus without complication, without long-term current use of insulin ([facility]) Social History Tobacco Use Types [...] Description 02/09/2025 10:30 AM EDT Clinical Support [facility] [address] [place] [address] Shyann Eckert RN [address] [place] [address] documented as of this encounter Visit Diagnoses Diagnosis Type 2 diabetes mellitus without complication, without long-term current use of insulin ([facility]) documented in this encounter Additional Health Concerns Assessment Noted Time PHQ-9 Depression Total Score: 1 12/18/19 24 3:08 PM EDT documented as of this encounter Care Teams Lap Cutter Truer Operator Relationship Specialty Start Date End Date Briana Varela NP [address] [place] [address] PCP - General Family Medicine 06/11/23 documented as of this encounter
--- OUTSIDE RECORDS SUMMARY | 2025-01-15 10:34 | XMS_ITS | Encounter Summary ---
Author Organization [employer] Address [address] [place] [address] Care Team Providers Care Acls Nurse Name Role Phone Briana Varela NP Primary Care Provider [phone] Reason for Visit * Reason Onset Date Comments Med Refill 09/30/2024 Encounter Details Date Type Department Care Team (Late st Contact Info) Description 09/30/2024 Refill [facility] [address] [place] [address] Briana Varela NP [address] [place] [address] Type 2 diabetes mellitus without complication, without long-term current use of insulin ([facility]) Social History Tobacco Use Types Packs/Day [...] Description 02/09/2025 10:30 AM EDT Clinical Support [facility] [address] [place] [address] Shyann Eckert RN [address] [place] [address] documented as of this encounter Visit Diagnoses Diagnosis Type 2 diabetes mellitus without complication, without long-term current use of insulin ([facility]) documented in this encounter Additional Health Concerns Assessment Noted Time PHQ-9 Depression Total Score: 1 12/18/19 24 3:08 PM EDT documented as of this encounter Care Teams Acls Nurse Relationship Specialty Start Date End Date Briana Varela NP [address] [place] [address] PCP - General Family Medicine 06/11/23 documented as of this encounter
--- OUTSIDE RECORDS SUMMARY | 2025-01-15 10:34 | XMS_ITS | Encounter Summary ---
Author Organization [employer] Address [address] 7t [place] [address] Care Team Providers Care Information Security Officer Name Role Phone Briana Varela NP Primary Care Provider [phone] Reason for Visit * Reason Onset Date Comments Chart Prep 01/12/2025 Encounter Details Date Type Department Care Team ([facility] st Contact Info) Description 01/12/2025 Telephone [facility] MEDICINE [address] [place] [address] Briana Varela NP 230 [place] [address] Chart Prep Social History Tobacco Use Types Packs/Day Years [...] encounter Miscellaneous Notes * Telephone Encounter - Akanksha Morgan [place] - 01/12/2025 10:36 AM EDT Chart Prep Labs: done Images: not applicable Referrals: not applicable Vaccines due: Covid and Flu Screenings: eye exam Overdue care gaps: PHQ-9, ANNMARIE-7, and Disability screen documented in this encounter Plan of Treatment Upcoming Encounters Date Type Department Care Team (Late st Contact Info) Description 02/09/2025 10:30 AM EDT Clinical Support [facility] MEDICINE [address] [place] [address] Shyann Eckert, FELECIA [address] [place] [address] documented as of this encounter Visit Diagnoses Not on filedocumented in this encounter Additional Health Concerns Assessment Noted Time PHQ-9 Depression Total Score: 1 12/18/19 24 3:08 PM EDT documented as of this encounter Care Teams Information Security Officer Relationship Specialty Start Date End Date Briana Varela NP 230 [place] [address] PCP - General Family Medicine 06/11/23 documented as of this encounter
--- OUTSIDE RECORDS SUMMARY | 2025-01-15 10:34 | XMS_ITS | Encounter Summary ---
Author Organization [employer] Address [address] 7[address] [place] [address] Care Team Providers Care Performance Analyst Name Role Phone Briana Varela NP Primary Care Provider [phone] Reason for Visit * Reason Onset Date Comments Prior Authorization 07/06/2024 Encounter Details Date Type Department Care Team ([facility] st Contact Info) Description 07/06/2024 Telephone [facility] MEDICINE [address] [place] [address] Briana Varela NP 230 [place] [address] Prior Authorization Social History Tobacco Use Types [...] Description 02/09/2025 10:30 AM EDT Clinical Support [facility] MEDICINE [address] [place] [address] Shyann Eckert, RN [address] [place] [address] documented as of this encounter Visit Diagnoses Not on filedocumented in this encounter Additional Health Concerns Assessment Noted Time PHQ-9 Depression Total Score: 1 12/18/19 24 3:08 PM EDT documented as of this encounter Care Teams Performance Analyst Relationship Specialty Start Date End Date Briana Varela NP 230 [place] [address] PCP - General Family Medicine 06/11/23 documented as of this encounter
--- OUTSIDE RECORDS SUMMARY | 2025-01-15 10:34 | XMS_ITS | Encounter Summary ---
Author Organization [employer] Address [address] 7[address] [place] [address] Care Team Providers Care Software Integrator Name Role Phone Briana Varela NP Primary Care Provider [phone] Reason for Visit * Reason Onset Date Comments Med Refill 05/21/2024 Encounter Details Date Type Department Care Team (Late st Contact Info) Description 05/21/2024 Refill [facility] MEDICINE [address] [place] [address] Briana Varela NP 230 [place] [address] Burning sensation of lower extremity; On pre-exposure [...] Clinical Support [facility] MEDICINE [address] [place] [address] Shyann Eckert RN [address] [place] [address] documented as of this encounter Visit Diagnoses Diagnosis Burning sensation of lower extremity On pre-exposure prophylaxis for HIV Essential hypertension Unspecified essential hypertension Pre-diabetes Other abnormal glucose documented in this encounter Additional Health Concerns Assessment Noted Time PHQ-9 Depression Total Score: 1 12/18/19 24 3:08 PM EDT documented as of this encounter Care Teams Software Integrator Relationship Specialty Start Date End Date Briana Varela NP [address] [place] [address] PCP - General Family Medicine 06/11/23 documented as of this encounter
--- OUTSIDE RECORDS SUMMARY | 2025-01-15 10:34 | XMS_ITS | Encounter Summary ---
Author Organization [employer] Address [address] [place] [address] 7t [place] [address] Care Team Providers Care Top Bottom Attaching Machine Operator Name Role Phone Jacklyn Mercado Primary Care Provider [phone] Briana Varela NP Primary Care Provider [phone] Encounter Details Date Type Department Care Team (Late st Contact Info) Description 10/01/2022 Orders Only [facility] MED & PEDS [address] [place] [address] Ailyn Arshad LPN Social History Tobacco Use [...] Description 02/09/2025 10:30 AM EDT Clinical Support [facility] MEDICINE 230 [place] [address] Shyann Eckert, FELECIA [address] [place] [address] documented as of this encounter Visit Diagnoses Not on filedocumented in this encounter Care Teams Top Bottom Attaching Machine Operator Relationship Specialty Start Date End Date Jacklyn Mercado FNP PCP - General Family Medicine 10/24/21 06/10/23 Briana Varela NP [address] [place] [address] PCP - General Family Medicine 06/11/23 documented as of this encounter
[2025-01-15 12:05] LABS: Anion Gap 15 (12-20); Blood Urea Nitrogen 12 mg/dL (9-16); Calcium 9.4 mg/dL (8.4-10.2); Carbon Dioxide 24 mmol/L (22-29); Chloride 103 mmol/L (96-108); Cholesterol 113 mg/dL (<200); Estimated Glomerular Filt Rate > 60; Glucose Random 128 mg/dL (60-115); HDL Cholesterol 33 mg/dL (>40); LDL Cholesterol Calculated 51 mg/dL (<100); Potassium 3.4 mmol/L (3.3-5.1); Sodium 139 mmol/L (135-145); Triglycerides 149 mg/dL (<150)
[2025-01-15 12:07] LABS: Estimated Average Glucose 146 mg/dL; Hemoglobin A1C 213.0421 umol/L; Hemoglobin A1c % 6.7 % (<6.0); Total Hemoglobin (HGBA1C) 4327.0527 umol/L
== END 2025-01-15 10:15 | disposition home or self-care (01) ==
LOC: HO.HHCL 10:14
PROVIDERS: Visit Provider Nurse Practitioner
DX: E11.9 Type 2 diabetes mellitus without complications (principal); I10 Essential (primary) hypertension
CPT/HCPCS: 36415; 80048; 80061; 83036

== ENCOUNTER 2025-02-09 11:54 | Outpatient (REF) | payer MEDICAID, OTHER, SELFPAY ==
--- OUTSIDE RECORDS SUMMARY | 2025-02-09 14:12 | XMS_ITS | Encounter Summary ---
Author Organization [employer] Address [address] 7[address] [place] [address] Care Team Providers Care Physical Therapy Technician Name Role Phone Briana Varela NP Primary Care Provider [phone] Reason for Visit * Reason Onset Date Comments Med Refill 05/21/2024 Encounter Details Date Type Department Care Team ([facility] st Contact Info) Description 05/21/2024 Refill [facility] MEDICINE [address] [place] [address] Briana Varela NP 230 [place] [address] Burning sensation of lower extremity; On pre-exposure [...] Care Team (Late st Contact Info) Description 04/06/2025 1:30 PM EDT Clinical Support [facility] MEDICINE [address] [place] [address] Shyann Eckert RN [address] [place] [address] documented as of this encounter Visit Diagnoses Diagnosis Burning sensation of lower extremity On pre-exposure prophylaxis for HIV Essential hypertension Unspecified essential hypertension Pre-diabetes Other abnormal glucose documented in this encounter Additional Health Concerns Assessment Noted Time PHQ-9 Depression Total Score: 1 12/18/19 24 3:08 PM EDT documented as of this encounter Care Teams Physical Therapy Technician Relationship Specialty Start Date End Date Briana Varela NP [address] [place] [address] PCP - General Family Medicine 06/11/23 documented as of this encounter
[2025-02-09 14:47] LABS: CT PCR NOT DETECTED (Not Detect.); NG PCR NOT DETECTED (Not Detect.)
[2025-02-10 08:09] LABS: ~HepC Num1 0.19 S/CO (0.00-0.79); ~Hepatitis C Antibody Nonreactive (Nonreactive)
[2025-02-10 12:08] LABS: RPR Rapid Plasma Reagin NON-REACTIVE (NON-REACTIVE)
[2025-02-12 22:52] LABS: HIV RNA PCR Qn Copies Not Detected Copies/mL; HIV RNA PCR Qn Log Copies Not Detected Log cps/mL
== END 2025-02-09 11:55 | disposition home or self-care (01) ==
LOC: HO.HHCL 11:54
PROVIDERS: Visit Provider Nurse Practitioner
DX: Z79.899 Other long term (current) drug therapy (principal)
CPT/HCPCS: 86592; 86803; 87491; 87536; 87591; 87900

== ENCOUNTER 2025-04-06 14:25 | Outpatient (REF) | payer MEDICAID, OTHER, SELFPAY ==
[2025-04-07 08:11] LABS: HIV Num 1 0.06 S/CO (0.00-0.99); ~HepC Num1 0.17 S/CO (0.00-0.79); ~Hepatitis C Antibody Nonreactive (Nonreactive)
== END 2025-04-06 14:26 | disposition home or self-care (01) ==
LOC: HO.HHCL 14:25
PROVIDERS: PCP Nurse Practitioner; Visit Provider Nurse Practitioner
DX: Z79.899 Other long term (current) drug therapy (principal)
CPT/HCPCS: 36415; 86592; 86803; 87389

== ENCOUNTER 2025-04-30 09:41 | Outpatient (REF) | payer MEDICAID, OTHER, SELFPAY ==
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
--- OUTSIDE RECORDS SUMMARY | 2025-04-30 10:28 | XMS_ITS | Encounter Summary ---
Author Organization [employer] Address [address] 7t [place] [address] Care Team Providers Care Dubbing Machine Operator Name Role Phone Briana Varela NP Primary Care Provider [phone] Encounter Details Date Type Department Care Team (Latest Contact Info) Description 04/30/2025 Travel Social History Tobacco Use Types Packs/Day [...] Description 05/04/2025 11:20 AM EDT Office Visit [facility] 230 [place] [address] 06/01/2025 2:00 PM EDT Clinical Support [facility] MEDICINE [address] [place] [address] Shyann Eckert, RN 230 [place] [address] 07/08/2025 11:00 AM EST Office Visit [facility] OPTOMETRY [address] [place] [address] Cheyanne Loya OD [address] [place] [address] documented as of this encounter Visit Diagnoses Not on filedocumented in this encounter Additional Health Concerns Assessment Noted Time PHQ-9 Depression Total Score: 0 01/14/20 25 4:08 PM EDT documented as of this encounter Care Teams Dubbing Machine Operator Relationship Specialty Start Date End Date Briana Varela NP [address] [place] [address] PCP - General Family Medicine 06/11/23 documented as of this encounter
--- OUTSIDE RECORDS SUMMARY | 2025-04-30 10:28 | XMS_ITS | Encounter Summary ---
Author Organization [employer] Address [address] [place] [address] Care Team Providers Care Mold Sheet Cleaner Name Role Phone Briana Varela NP Primary Care Provider [phone] Reason for Visit * Reason Onset Date Comments Medication Question 03/12/2025 Encounter Details Date Type Department Care Team ([facility] Contact Info) Description 03/12/2025 Telephone [facility] MEDICINE [address] [place] [address] Briana Varela NP 230 [place] [address] Medication Question Social History Tobacco Use Types Packs/Day Years [...] encounter Miscellaneous Notes * Telephone Encounter - Mike Meadows - 03/12/2025 4:50 PM EDT Pty reports now has [facility] . Chart updated with new insurance . Pt requesting ozempic documented in this encounter Plan of Treatment Upcoming Encounters Date Type Department Care Team (Late st Contact Info) Description 05/04/2025 11:20 AM EDT Office Visit [facility] [address] [place] [address] 06/01/2025 2:00 PM EDT Clinical Support [facility] MEDICINE [address] [place] [address] Shyann Eckert, FELECIA 230 [place] [address] 07/08/2025 11:00 AM EST Office Visit [facility] [address] [place] [address] Cheyanne Loya OD [address] [place] [address] documented as of this encounter Visit Diagnoses Not on filedocumented in this encounter Additional Health Concerns Assessment Noted Time PHQ-9 Depression Total Score: 0 01/14/20 25 4:08 PM EDT documented as of this encounter Care Teams Mold Sheet Cleaner Relationship Specialty Start Date End Date Briana Varela NP 230 [place] [address] PCP - General Family Medicine 06/11/23 documented as of this encounter
--- OUTSIDE RECORDS SUMMARY | 2025-04-30 10:28 | XMS_ITS | Encounter Summary ---
Author Organization [employer] Address [address] 7t [place] [address] Care Team Providers Care Police Superintendent Name Role Phone Briana Varela NP Primary Care Provider [phone] Encounter Details Date Type Department Care Team (Late st Contact Info) Description 04/06/2025 Results Follow-Up [facility] MEDICINE [address] [place] [address] Briana Varela NP [address] [place] [address] Hepatitis C Antibody with Reflex to HCV, RNA, Quantitative, Real-Time PCR, RPR (Monitor) with Reflex to Titer, HIV-1 RNA, Quantitative, Real-Time PCR Social History Tobacco Use Types Packs/Day Years [...] Description 05/04/2025 11:20 AM EDT Office Visit [facility] [address] [place] [address] 06/01/2025 2:00 PM EDT Clinical Support [facility] MEDICINE [address] [place] [address] Shyann Eckert RN [address] [place] [address] 07/08/2025 11:00 AM EST Office Visit [facility] OPT[facility] [address] [place] [address] Cheyanne Loya, OD [address] [place] [address] documented as of this encounter Visit Diagnoses Not on filedocumented in this encounter Additional Health Concerns Assessment Noted Time PHQ-9 Depression Total Score: 0 01/14/20 25 4:08 PM EDT documented as of this encounter Care Teams Police Superintendent Relationship Specialty Start Date End Date Briana Varela NP [address] [place] [address] PCP - General Family Medicine 06/11/23 documented as of this encounter
--- OUTSIDE RECORDS SUMMARY | 2025-04-30 10:28 | XMS_ITS | Encounter Summary ---
Author Organization [employer] Address [address] [place] [address] Care Team Providers Care Tank Wagon Operator Name Role Phone Briana Varela NP Primary Care Provider [phone] Reason for Visit * Reason Onset Date Comments Med Refill 11/09/2024 Encounter Details Date Type Department Care Team ([facility] st Contact Info) Description 11/09/2024 Refill [facility] MEDICINE 230 [place] [address] Briana Varela NP 230 [place] [address] Type 2 diabetes mellitus without complication, without long-term current use of insulin ([facility]); Burning sensation of lower [...] Description 05/04/2025 11:20 AM EDT Office Visit [facility] [address] [place] [address] 06/01/2025 2:00 PM EDT Clinical Support [facility] MEDICINE [address] [place] [address] Shyann Eckert, FELECIA [address] [place] [address] 07/08/2025 11:00 AM EST Office Visit [facility] OPTOMETRY [address] [place] [address] Cheyanne Loya, ADOLFO [address] [place] [address] documented as of this encounter Visit Diagnoses Diagnosis Type 2 diabetes mellitus without complication, without long-term current use of insulin ([facility]) Burning sensation of lower extremity On pre-exposure prophylaxis for HIV Essential hypertension Unspecified essential hypertension Pre-diabetes Other abnormal glucose documented in this encounter Additional Health Concerns Assessment Noted Time PHQ-9 Depression Total Score: 1 12/18/19 24 3:08 PM EDT documented as of this encounter Care Teams Tank Wagon Operator Relationship Specialty Start Date End Date Briana Varela NP [address] [place] [address] PCP - General Family Medicine 06/11/23 documented as of this encounter
--- OUTSIDE RECORDS SUMMARY | 2025-04-30 10:28 | XMS_ITS | Encounter Summary ---
Author Organization [employer] Address [address] 7t [place] [address] Care Team Providers Care General Road Foreman Name Role Phone Briana Varela NP Primary Care Provider [phone] Reason for Visit * Reason Onset Date Comments Med Refill 08/13/2024 Encounter Details Date Type Department Care Team ([facility] st Contact Info) Description 08/13/2024 Refill [facility] MED & PEDS [address] [place] [address] Briana Varela NP [address] [place] [address] Type 2 diabetes mellitus without complication, without long-term current use of insulin ([facility]) Social History Tobacco Use [...] Description 05/04/2025 11:20 AM EDT Office Visit [facility] [address] [place] [address] 06/01/2025 2:00 PM EDT Clinical Support [facility] MEDICINE [address] [place] [address] Shyann Eckert, RN [address] [place] [address] 07/08/2025 11:00 AM EST Office Visit [facility] OPTOMETRY [address] [place] [address] Cheyanne Loya, ADOLFO [address] [place] [address] documented as of this encounter Visit Diagnoses Diagnosis Type 2 diabetes mellitus without complication, without long-term current use of insulin ([facility]) documented in this encounter Additional Health Concerns Assessment Noted Time PHQ-9 Depression Total Score: 1 12/18/19 24 3:08 PM EDT documented as of this encounter Care Teams General Road Foreman Relationship Specialty Start Date End Date Briana Varela NP [address] [place] [address] PCP - General Family Medicine 06/11/23 documented as of this encounter
--- OUTSIDE RECORDS SUMMARY | 2025-04-30 10:28 | XMS_ITS | Encounter Summary ---
Author Organization [employer] Address [address] 7t [place] [address] Care Team Providers Care Facilities Coordinator Name Role Phone Briana Varela NP Primary Care Provider [phone] Encounter Details Date Type Department Care Team (Late st Contact Info) Description 04/06/2025 Results Follow-Up [facility] MEDICINE [address] [place] [address] Briana Varela NP [address] [place] [address] Chlamydia/N. Gonorrhoeae RNA, TMA, Urogenitial, Hepatitis C Antibody with Reflex to HCV, RNA, Quantitative, Real-Time PCR, RPR (Monitor) with Reflex to Titer, HIV-1 RNA, Quantitative, Real-Time PCR with Reflex to Genotype (RTI, PI, Integrase) Social History Tobacco Use Types Packs/Day Years [...] 11:20 AM EDT Office Visit [facility] [address] [place] [address] 06/01/2025 2:00 PM EDT Clinical Support [facility] MEDICINE [address] [place] [address] Shyann Eckert, FELECIA [address] [place] [address] 07/08/2025 11:00 AM EST Office Visit [facility] OPTOMETRY [address] [place] [address] Cheyanne Loya, OD [address] [place] [address] documented as of this encounter Visit Diagnoses Not on filedocumented in this encounter Additional Health Concerns Assessment Noted Time PHQ-9 Depression Total Score: 0 01/14/20 25 4:08 PM EDT documented as of this encounter Care Teams Facilities Coordinator Relationship Specialty Start Date End Date Briana Varela NP [address] [place] [address] PCP - General Family Medicine 06/11/23 documented as of this encounter
--- OUTSIDE RECORDS SUMMARY | 2025-04-30 10:28 | XMS_ITS | Encounter Summary ---
Author Organization [employer] Address [address] [place] [address] 7t [place] [address] Care Team Providers Care Waste Machine Operator Name Role Phone Jacklyn Mercado WOOD BOX MAKER Primary Care Provider Briana Padilla NP Primary Care Provider [phone] Encounter Details Date Type Department Care Team (Late st Contact Info) Description 10/01/2022 Orders Only [facility] MED & PEDS [address] [place] [address] Ailyn Arshad LPN Social History Tobacco Use [...] Description 05/04/2025 11:20 AM EDT Office Visit [facility] [address] [place], [place] [id number] 06/01/2025 2:00 PM EDT Clinical Support [facility] MEDICINE [address] [place] [address] Shyann Eckert, FELECIA [address] [place] [address] 07/08/2025 11:00 AM EST Office Visit [facility] OPTOMETRY [address] [place] [address] Cheyanne Loya OD [address] [place] [address] documented as of this encounter Visit Diagnoses Not on filedocumented in this encounter Care Teams Waste Machine Operator Relationship Specialty Start Date End Date Jacklyn Mercado FNP PCP - General Family Medicine 10/24/21 06/10/23 Briana Varela NP [address] [place] [address] PCP - General Family Medicine 06/11/23 documented as of this encounter
--- OUTSIDE RECORDS SUMMARY | 2025-04-30 10:28 | XMS_ITS | Encounter Summary ---
Author Organization [employer] Address [address] [place] [address] Care Team Providers Care Single Stayer Operator Name Role Phone Briana Varela NP Primary Care Provider [phone] Reason for Visit * Reason Onset Date Comments Med Refill 09/30/2024 Encounter Details Date Type Department Care Team ([facility] st Contact Info) Description 09/30/2024 Refill [facility] MEDICINE [address] [place] [address] Briana Varela NP [address] [place] [address] Type 2 diabetes mellitus without complication, without long-term current use of insulin ([facility]) Social History Tobacco Use Types Packs/Day [...] Description 05/04/2025 11:20 AM EDT Office Visit [facility] [address] [place] [address] 06/01/2025 2:00 PM EDT Clinical Support [facility] MEDICINE [address] [place] [address] Shyann Eckert, RN [address] [place] [address] 07/08/2025 11:00 AM EST Office Visit [facility] OPTOMETRY [address] [place] [address] Cheyanne Loya, ADOLFO [address] [place] [address] documented as of this encounter Visit Diagnoses Diagnosis Type 2 diabetes mellitus without complication, without long-term current use of insulin ([facility]) documented in this encounter Additional Health Concerns Assessment Noted Time PHQ-9 Depression Total Score: 1 12/18/19 24 3:08 PM EDT documented as of this encounter Care Teams Single Stayer Operator Relationship Specialty Start Date End Date Briana Varela NP [address] [place] [address] PCP - General Family Medicine 06/11/23 documented as of this encounter
--- OUTSIDE RECORDS SUMMARY | 2025-04-30 10:28 | XMS_ITS | Encounter Summary ---
Author Organization [employer] Address [address] [place] [address] Care Team Providers Care Auto Brake Technician Name Role Phone Briana Varela NP Primary Care Provider [phone] Reason for Visit * Reason Onset Date Comments Med Refill 04/22/2025 Encounter Details Date Type Department Care Team ([facility] st Contact Info) Description 04/22/2025 Refill [facility] [address] [place] [address] Briana Varela NP [address] [place] [address] Type 2 diabetes mellitus without complication, without long-term current use of insulin ([facility]) Social History Tobacco Use Types [...] AM EDT Office Visit [facility] [address] [place] [address] 06/01/2025 2:00 PM EDT Clinical Support [facility] [address] [place] [address] Shyann Eckert, FELECIA [address] [place] [address] 07/08/2025 11:00 AM EST Office Visit [facility] OPTOMETRY [address] [place] [address] Cheyanne Loya, ADOLFO [address] [place] [address] documented as of this encounter Visit Diagnoses Diagnosis Type 2 diabetes mellitus without complication, without long-term current use of insulin ([facility]) documented in this encounter Additional Health Concerns Assessment Noted Time PHQ-9 Depression Total Score: 0 01/14/20 25 4:08 PM EDT documented as of this encounter Care Teams Auto Brake Technician Relationship Specialty Start Date End Date Briana Varela NP [address] [place] [address] PCP - General Family Medicine 06/11/23 documented as of this encounter
--- OUTSIDE RECORDS SUMMARY | 2025-04-30 10:28 | XMS_ITS | Encounter Summary ---
Author Organization [employer] Address [address] [place] [address] Care Team Providers Care Taping Supervisor Name Role Phone Briana Varela NP Primary Care Provider [phone] Reason for Visit * Reason Onset Date Comments Med Refill 10/09/2024 Encounter Details Date Type Department Care Team (Late st Contact Info) Description 10/09/2024 Refill [facility] [address] [place] [address] Briana Varela NP [address] [place] [address] Type 2 diabetes mellitus without complication, without long-term current use of insulin ([facility]); Burning sensation of lower extremity; Pre-diabetes Social [...] [facility] [address] [place] [address] 06/01/2025 2:00 PM EDT Clinical Support [facility] [address] [place] [address] Shyann Eckert, FELECIA [address] [place] [address] 07/08/2025 11:00 AM EST Office Visit [facility] OPTOMETRY [address] [place] [address] Cheyanne Loya, OD [address] [place] [address] documented as of this encounter Visit Diagnoses Diagnosis Type 2 diabetes mellitus without complication, without long-term current use of insulin ([facility]) Burning sensation of lower extremity Pre-diabetes Other abnormal glucose documented in this encounter Additional Health Concerns Assessment Noted Time PHQ-9 Depression Total Score: 1 12/18/19 24 3:08 PM EDT documented as of this encounter Care Teams Taping Supervisor Relationship Specialty Start Date End Date Briana Varela NP [address] [place] [address] PCP - General Family Medicine 06/11/23 documented as of this encounter
--- OUTSIDE RECORDS SUMMARY | 2025-04-30 10:28 | XMS_ITS | Encounter Summary ---
Author Organization [employer] Address [address] [place] [address] Care Team Providers Care Sheriff'S Detective Name Role Phone Briana Varela NP Primary Care Provider [phone] Reason for Visit * Reason Onset Date Comments Med Refill 05/21/2024 Encounter Details Date Type Department Care Team ([facility] st Contact Info) Description 05/21/2024 Refill [facility] MED[facility] [address] [place] [address] Briana Varela NP [address] [place] [address] Burning sensation of lower extremity; On pre-exposure [...] Description 05/04/2025 11:20 AM EDT Office Visit [facility] [address] [place] [address] 06/01/2025 2:00 PM EDT Clinical Support [facility] MEDICINE [address] [place] [address] Shyann Eckert, RN [address] [place] [address] 07/08/2025 11:00 AM EST Office Visit [facility] OPTOMETRY [address] [place] [address] Cheyanne Loya OD [address] [place] [address] documented as of this encounter Visit Diagnoses Diagnosis Burning sensation of lower extremity On pre-exposure prophylaxis for HIV Essential hypertension Unspecified essential hypertension Pre-diabetes Other abnormal glucose documented in this encounter Additional Health Concerns Assessment Noted Time PHQ-9 Depression Total Score: 1 12/18/19 24 3:08 PM EDT documented as of this encounter Care Teams Sheriff'S Detective Relationship Specialty Start Date End Date Briana Varela NP [address] [place] [address] PCP - General Family Medicine 06/11/23 documented as of this encounter
--- OUTSIDE RECORDS SUMMARY | 2025-04-30 10:28 | XMS_ITS | Encounter Summary ---
Author Organization [employer] Address [address] [place] [address] Care Team Providers Care Heat And Vent Aircraft Mechanic Name Role Phone Briana Varela NP Primary Care Provider [phone] Reason for Visit * Reason Onset Date Comments Med Refill 09/28/2024 Encounter Details Date Type Department Care Team ([facility] st Contact Info) Description 09/28/2024 Refill [facility] [address] [place] [address] Briana Varela NP [address] [place] [address] Type 2 diabetes mellitus without complication, without long-term current use of insulin ([facility]) Social History Tobacco Use Types Packs/Day [...] Description 05/04/2025 11:20 AM EDT Office Visit [facility] [address] [place] [address] 06/01/2025 2:00 PM EDT Clinical Support [facility] MEDICINE [address] [place] [address] Shyann Eckert, RN [address] [place] [address] 07/08/2025 11:00 AM EST Office Visit [facility] OPTOMETRY [address] [place] [address] Cheyanne Loya, ADOLFO [address] [place] [address] documented as of this encounter Visit Diagnoses Diagnosis Type 2 diabetes mellitus without complication, without long-term current use of insulin ([facility]) documented in this encounter Additional Health Concerns Assessment Noted Time PHQ-9 Depression Total Score: 1 12/18/19 24 3:08 PM EDT documented as of this encounter Care Teams Heat And Vent Aircraft Mechanic Relationship Specialty Start Date End Date Briana Varela NP [address] [place] [address] PCP - General Family Medicine 06/11/23 documented as of this encounter
--- OUTSIDE RECORDS SUMMARY | 2025-04-30 10:28 | XMS_ITS | Encounter Summary ---
Author Organization [employer] Address [address] [place] [address] Care Team Providers Care Talent Acquisition Director Name Role Phone Briana Varela NP Primary Care Provider [phone] Reason for Visit * Reason Onset Date Comments Med Refill 07/16/2024 Encounter Details Date Type Department Care Team ([facility] st Contact Info) Description 07/16/2024 Refill [facility] [address] [place] [address] Briana Varela NP [address] [place] [address] Type 2 diabetes mellitus without complication, without long-term current use of insulin ([facility]) Social History [...] Description 05/04/2025 11:20 AM EDT Office Visit [facility] [address] [place] [address] 06/01/2025 2:00 PM EDT Clinical Support [facility] [address] [place] [address] Shyann Eckert, RN [address] [place] [address] 07/08/2025 11:00 AM EST Office Visit [facility] OPTOMETRY [address] [place] [address] Cheyanne Loya, ADOLFO [address] [place] [address] documented as of this encounter Visit Diagnoses Diagnosis Type 2 diabetes mellitus without complication, without long-term current use of insulin ([facility]) documented in this encounter Additional Health Concerns Assessment Noted Time PHQ-9 Depression Total Score: 1 12/18/19 24 3:08 PM EDT documented as of this encounter Care Teams Talent Acquisition Director Relationship Specialty Start Date End Date Briana Varela NP [address] [place] [address] PCP - General Family Medicine 06/11/23 documented as of this encounter
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
--- OUTSIDE RECORDS SUMMARY | 2025-04-30 10:28 | XMS_ITS | Encounter Summary ---
Author Organization [employer] Address [address] [place] [address] Street 7t [place] [address] Care Team Providers Care American Indian Studies Professor Name Role Phone Briana Varela NP Primary Care Provider [phone] Reason for Visit * Reason Onset Date Comments Prior Authorization 07/06/2024 Encounter Details Date Type Department Care Team ([facility] Contact Info) Description 07/06/2024 Telephone [facility] [address] [place] [address] Briana Varela NP [address] [place] [address] Prior Authorization Social History Tobacco Use Types [...] needs a PA. * Telephone Encounter - aSm Rodrigez - 07/06/2024 4:25 PM EST Tc from pt stating Dulaglutide (Trulicity) 0.75 MG/0.5ML solution auto-injector needs a PA. documented in this encounter Plan of Treatment Upcoming Encounters Date Type Department Care Team (Late st Contact Info) Description 05/04/2025 11:20 AM EDT Office Visit [facility] [address] [place] [address] 06/01/2025 2:00 PM EDT Clinical Support [facility] [address] [place] [address] Shyann Eckert, RN [address] [place] [address] 07/08/2025 11:00 AM EST Office Visit [facility] [address] [place] [address] Cheyanne Loya, OD [address] [place] [address] documented as of this encounter Visit Diagnoses Not on filedocumented in this encounter Additional Health Concerns Assessment Noted Time PHQ-9 Depression Total Score: 1 12/18/19 24 3:08 PM EDT documented as of this encounter Care Teams American Indian Studies Professor Relationship Specialty Start Date End Date Briana Varela NP [address] [place] [address] PCP - General Family Medicine 06/11/23 documented as of this encounter
[2025-05-01 04:10] LABS: HBS Num1 98.69 mIU/mL (0-7.99); HBsAGNum1 0.46 S/CO (0.00-0.99); HIV Num 1 0.04 S/CO (0.00-0.99); Hepatitis B Surface Antigen Negative (Negative); ~HepC Num1 0.22 S/CO (0.00-0.79); ~Hepatitis B Surface Antibody REACTIVE (Nonreactive); ~Hepatitis C Antibody Nonreactive (Nonreactive)
== END 2025-04-30 09:42 | disposition home or self-care (01) ==
LOC: HO.HHCL 09:41
PROVIDERS: PCP Nurse Practitioner; Visit Provider Family Medicine
DX: S31.159A Open bite of abdominal wall, unspecified quadrant without penetration into peritoneal cavity, initial encounter (principal); L08.9 Local infection of the skin and subcutaneous tissue, unspecified; Z11.3 Encounter for screening for infections with a predominantly sexual mode of transmission; Z11.4 Encounter for screening for human immunodeficiency virus [HIV]; Z11.59 Encounter for screening for other viral diseases; Z20.6 Contact with and (suspected) exposure to human immunodeficiency virus [HIV]
CPT/HCPCS: 36415; 86592; 86706; 86803; 87070; 87205; 87340; 87389

== ENCOUNTER 2025-06-01 14:47 | Outpatient (REF) | payer OTHER, SELFPAY ==
--- OUTSIDE RECORDS SUMMARY | 2025-06-01 14:30 | XMS_ITS | Encounter Summary ---
Author Organization [employer] Address [address] [place] [address] Street 7t [place] [address] Care Team Providers Care Swimming Teacher Name Role Phone Briana Varela NP Primary Care Provider [phone] Reason for Visit * Reason Comments PrEP with Apretude Encounter Details Date Type Department Care Team (Latest Contact Info) Description 06/01/2025 2:30 PM EDT Clinical Support [facility] [address] [place] [address] Muriel Rivers RN [address] [place] [address] Encounter for HIV pre-exposure prophylaxis (Primary Dx) [...] as of this encounter Progress Notes * Muriel Rivers RN - 06/01/2025 2:30 PM EDT Patient ID: Alessandro Jaimes is a 34 y.o. adult. Pt here for APRETUDE (600-mg cabotegravir) #5. She reports no ADEs noted. Reviewed and [...] injection, no adverse reaction noted. HIV-1 RNA , Hep C, LFTs , creatinine done in lab. STI swabs and urine done in clinic. Pt given phone number for RN and [...] in addition to HIV testing. Syphilis serology drawn today. Swabs through state lab done today 06/01/25. LFTs 6 months after first injection, then annually: LFTs due 05/22/26 Appointment for 2mos given w/ 7d kaylynn period: 07/27/25 at 2:00 documented in this encounter Plan of Treatment Upcoming Encounters Date Type Department Care Team (Late st Contact Info) Description 07/08/2025 11:00 AM EST Office Visit [facility] [address] [place] [address] Cheyanne Loya, OD [address] [place] [address] 07/21/2025 9:30 AM EST Office Visit [facility] [address] [place] [address] Briana Varela, MELTER SUPERVISOR OXYGEN FURNACE [address] [place] [address] 07/27/2025 2:30 PM EST Clinical Support [facility] [address] [place] [address] Shyann Eckert, RN 230 [place] [address] Scheduled Orders Name Type Priority Associated Diagnoses Orde r Schedule Hepatic Function Panel Lab Routine Encounter for HIV pre-exposure prophylaxis Expected: 06/01/2025 (Approximate), Expires: 06/01/2026 HIV-1 RNA, Quantitative, Real-Time PCR Lab Routine Encounter for HIV pre-exposure prophylaxis Expected: 06/01/2025 (Approximate), Expires: 06/01/2026 RPR (Monitor) with Reflex to Titer Lab Routine Encounter for HIV pre-exposure prophylaxis Expected: 06/01/2025 (Approximate), Expires: 06/01/2026 Hepatitis C Antibody with Reflex to HCV, RNA, Quantitative, Real-Time PCR Lab Routine Encounter for HIV pre-exposure prophylaxis Expected: 06/01/2025 (Approximate), Expires: 06/01/2026 Chlamydia/Trichomonas/Ne isseria gonorrhoeae, PCR, Urine Lab Routine Encounter for HIV pre-exposure prophylaxis Expected: 06/01/2025 (Approximate), Expires: 06/01/2026 documented as of this encounter Visit Diagnoses Diagnosis Encounter for HIV pre-exposure prophylaxis- Primary documented in this encounter Administered Medications Inactive Administered Medications - up to 3 most recent administrations Medication Order MAR Action Action Date Dose Rate Site Cabotegravir ER Suspension Extended Release 600 mg 600 mg, Intramuscular, Once, On Sat06/01/25 at 1530, For 1 dose, Ventrogluteal.Indication s:Encounter for HIV pre-exposure prophylaxis Given 06/01/2025 3:30 PM EDT 600 mg Right Ventrogluteal documented in this encounter Additional Health Concerns Assessment Noted Time PHQ-9 Depression Total Score: 0 01/14/20 25 4:08 PM EDT documented as of this encounter Care Teams Swimming Teacher Relationship Specialty Start Date End Date Briana Varela NP 230 [place] [address] PCP - General Family Medicine 06/11/23 documented as of this encounter
--- OUTSIDE RECORDS SUMMARY | 2025-06-01 16:08 | XMS_ITS | Encounter Summary ---
Author Organization [employer] Address [address] [place] [address] Street 7t [place] [address] Care Team Providers Care Child Welfare Manager Name Role Phone Briana Varela NP Primary Care Provider [phone] Reason for Visit * Reason Onset Date Comments Prior Authorization 07/06/2024 Encounter Details Date Type Department Care Team ([facility] Contact Info) Description 07/06/2024 Telephone [facility] [address] [place] [address] Briana Varela NP [address] [place] [address] Prior Authorization Social History Tobacco Use Types [...] Description 07/08/2025 11:00 AM EST Office Visit [facility] [address] [place] [address] Cheyanne Loya, OD 267 [place] [address] 07/21/2025 9:30 AM EST Office Visit [facility] [address] [place] [address] Briana Varela NP [address] [place] [address] 07/27/2025 2:30 PM EST Clinical Support [facility] [address] [place] [address] Syhann Eckert RN [address] [place] [address] documented as of this encounter Visit Diagnoses Not on filedocumented in this encounter Additional Health Concerns Assessment Noted Time PHQ-9 Depression Total Score: 1 12/18/19 24 3:08 PM EDT documented as of this encounter Care Teams Child Welfare Manager Relationship Specialty Start Date End Date Briana Varela NP [address] [place] [address] PCP - General Family Medicine 06/11/23 documented as of this encounter
--- OUTSIDE RECORDS SUMMARY | 2025-06-01 16:08 | XMS_ITS | Encounter Summary ---
Author Organization [employer] Address [address] [facility] [address] 7t [place] [address] Care Team Providers Care Calciner Operator Helper Name Role Phone Briana Varela NP Primary Care Provider [phone] Reason for Visit * Reason Onset Date Comments Med Refill 04/22/2025 Encounter Details Date Type Department Care Team ([facility] st Contact Info) Description 04/22/2025 Refill [facility] 230 [place] [address] Briana Varela NP 230 [place] [address] Type 2 diabetes mellitus without complication, without long-term current use of insulin ([facility]) Social History Tobacco Use Types Packs/Day Years [...] 07/08/2025 11:00 AM EST Office Visit [facility] [address] [place] [address] Cheyanne Loya, ADOLFO [address] [place] [address] 07/21/2025 9:30 AM EST Office Visit [facility] [address] [place] [address] Briana Varela NP 230 [place] [address] 07/27/2025 2:30 PM EST Clinical Support [address] [address] Shyann Eckert, RN [address] [place] [address] documented as of this encounter Visit Diagnoses Diagnosis Type 2 diabetes mellitus without complication, without long-term current use of insulin (HCC) documented in this encounter Additional Health Concerns Assessment Noted Time PHQ-9 Depression Total Score: 0 01/14/20 25 4:08 PM EDT documented as of this encounter Care Teams Calciner Operator Helper Relationship Specialty Start Date End Date Briana Varela NP 230 [place] [address] PCP - General Family Medicine 06/11/23 documented as of this encounter
--- OUTSIDE RECORDS SUMMARY | 2025-06-01 16:08 | XMS_ITS | Encounter Summary ---
Author Organization [employer] Address [address] [facility] [address] 7[address] [place] [address] Care Team Providers Care Motel Keeper Name Role Phone Briana Varela NP Primary Care Provider [phone] Reason for Visit * Reason Onset Date Comments Med Refill 05/14/2025 Encounter Details Date Type Department Care Team ([facility] st Contact Info) Description 05/14/2025 Refill [facility] [address] [place] [address] Briana Varela NP 230 [place] [address] Type 2 diabetes mellitus without complication, without long-term current use of insulin ([facility]) Social History Tobacco Use Types [...] encounter Miscellaneous Notes * Telephone Encounter - Ruth Sanchez RN - 05/17/2025 9:44 AM EDT Images from the original note were not included. TC placed to pt via [email or web address] clinical safety manager (Loren ID#[id number]) per below PCP message. Pt reports they completed just the 0.25 mg dose for 4 weeks. Advised pt per PCP, increase dose to 0.5 mg as there should be enough supply. Pt states they will take the 0.5 MG dose. Pt verbalized understanding of PCP message and denies questions at this time. Message forwarded to PCP as an FYI. Briana Varela PICTURE BOOKER to [facility] Team Nurses (Selected Message) MOY 05/17/25 9:12 AM Please confirm with Alessandro if they completed 4 weeks of the 0.5mg dosing or just the 0.25 mg. If only 0.25 mg dosing has been completed, advise increasing dose to 0.5 mg as there should be enough supply. Thanks documented in this encounter Plan of Treatment Upcoming Encounters Date Type Department Care Team (Late st Contact Info) Description 07/08/2025 11:00 AM EST Office Visit [facility] [address] [place] [address] Cheyanne Loya, OD [address] [place] [address] 07/21/2025 9:30 AM EST Office Visit [facility] [address] [place] [address] Briana Varela NP 230 [place] [address] 07/27/2025 2:30 PM EST Clinical Support [facility] [address] [place] [address] Shyann Eckert, FELECIA [address] [place] [address] documented as of this encounter Visit Diagnoses Diagnosis Type 2 diabetes mellitus without complication, without long-term current use of insulin (HCC) documented in this encounter Additional Health Concerns Assessment Noted Time PHQ-9 Depression Total Score: 0 01/14/20 25 4:08 PM EDT documented as of this encounter Care Teams Motel Keeper Relationship Specialty Start Date End Date Briana Varela NP [address] [place] [address] PCP - General Family Medicine 06/11/23 documented as of this encounter
--- OUTSIDE RECORDS SUMMARY | 2025-06-01 16:08 | XMS_ITS | Encounter Summary ---
Author Organization [employer] Address [address] [facility] [address] 7t [place] [address] Care Team Providers Care System Safety Manager Name Role Phone Briana Varela NP Primary Care Provider [phone] Reason for Visit * Reason Onset Date Comments Med Refill 05/21/2024 Encounter Details Date Type Department Care Team ([facility] st Contact Info) Description 05/21/[address] [facility] [address] [place] [address] Briana Varela NP 230 [place] [address] Burning sensation of lower extremity; On pre-exposure [...] Description 07/08/2025 11:00 AM EST Office Visit [facility] [address] [place] [address] Cheyanne Loya OD 267 [place] [address] 07/21/2025 9:30 AM EST Office Visit [facility] [address] [place] [address] Briana Varela NP 230 [place] [address] 07/27/2025 2:30 PM EST Clinical Support [facility] [address] [place] [address] Shyann Eckert, RN 230 [place] [address] documented as of this encounter Visit Diagnoses Diagnosis Burning sensation of lower extremity On pre-exposure prophylaxis for HIV Essential hypertension Unspecified essential hypertension Pre-diabetes Other abnormal glucose documented in this encounter Additional Health Concerns Assessment Noted Time PHQ-9 Depression Total Score: 1 12/18/19 24 3:08 PM EDT documented as of this encounter Care Teams System Safety Manager Relationship Specialty Start Date End Date Briana Varela NP 230 [place] [address] PCP - General Family Medicine 06/11/23 documented as of this encounter
--- OUTSIDE RECORDS SUMMARY | 2025-06-01 16:08 | XMS_ITS | Encounter Summary ---
Author Organization [employer] Address [address] [facility] [address] [place] [address] Care Team Providers Care Brim Plater Name Role Phone Briana Varela NP Primary Care Provider [phone] Encounter Details Date Type Department Care Team (Latest Contact Info) Description 06/01/2025 Travel Social History Tobacco Use Types Packs/Day [...] Description 07/08/2025 11:00 AM EST Office Visit [facility] 267 [place] [address] Cheyanne Loya OD 267 [place] [address] 07/21/2025 9:30 AM EST Office Visit [facility] [address] [place] [address] Briana Varela NP 230 [place] [address] 07/27/2025 2:30 PM EST Clinical Support [facility] [address] [place] [address] Shyann Eckert, FELECIA [address] [place] [address] documented as of this encounter Visit Diagnoses Not on filedocumented in this encounter Additional Health Concerns Assessment Noted Time PHQ-9 Depression Total Score: 0 01/14/20 4:08 PM EDT documented as of this encounter Care Teams Brim Plater Relationship Specialty Start Date End Date Briana Varela NP 230 [place] [address] PCP - General Family Medicine 06/11/23 documented as of this encounter
--- OUTSIDE RECORDS SUMMARY | 2025-06-01 16:08 | XMS_ITS | Encounter Summary ---
Author Organization [employer] Address [address] [facility] [address] [place] [address] Care Team Providers Care Microbiology Lab Technician Name Role Phone Briana Varela NP Primary Care Provider [phone] Reason for Visit * Reason Onset Date Comments Med Refill 07/16/2024 Encounter Details Date Type Department Care Team ([facility] st Contact Info) Description 07/16/2024 Refill [facility] 230 [place] [address] Briana Varela NP 230 [place] [address] Type 2 diabetes mellitus without complication, without long-term current use of insulin ([facility]) Social History Tobacco Use Types [...] 11:00 AM EST Office Visit [facility] [address] [place] [address] Cheyanne Loya OD [address] [place] [address] 07/21/2025 9:30 AM EST Office Visit [facility] [address] [place] [address] Briana Varela NP 230 [place] [address] 07/27/2025 2:30 PM EST Clinical Support [facility] [address] [place] [address] Shyann Eckert, RN 230 [place] [address] documented as of this encounter Visit Diagnoses Diagnosis Type 2 diabetes mellitus without complication, without long-term current use of insulin (HCC) documented in this encounter Additional Health Concerns Assessment Noted Time PHQ-9 Depression Total Score: 1 12/18/19 24 3:08 PM EDT documented as of this encounter Care Teams Microbiology Lab Technician Relationship Specialty Start Date End Date Briana Varela NP 230 [place] [address] PCP - General Family Medicine 06/11/23 documented as of this encounter
--- OUTSIDE RECORDS SUMMARY | 2025-06-01 16:09 | XMS_ITS | Encounter Summary ---
Author Organization [employer] Address [address] [facility] [address] 7[address] [place] [address] Care Team Providers Care Overlay Plastician Name Role Phone rBiana Varela NP Primary Care Provider [phone] Reason for Visit * Reason Onset Date Comments Med Refill 09/28/2024 Encounter Details Date Type Department Care Team ([facility] st Contact Info) Description 09/28/2024 Refill [facility] [address] [place] [address] Briana Varela NP [address] [place] [address] Type 2 diabetes mellitus without complication, without long-term current use of insulin ([facility]) Social History Tobacco Use Types Packs/Day Years [...] Description 07/08/2025 11:00 AM EST Office Visit [facility] [address] [place] [address] Cheyanne Loya OD [address] [place] [address] 07/21/2025 9:30 AM EST Office Visit [facility] [address] [place] [address] Briana Varela NP 230 [place] [address] 07/27/2025 2:30 PM EST Clinical Support [facility] [address] [place] [address] Shyann Eckert, RN 230 [place] [address] documented as of this encounter Visit Diagnoses Diagnosis Type 2 diabetes mellitus without complication, without long-term current use of insulin (HCC) documented in this encounter Additional Health Concerns Assessment Noted Time PHQ-9 Depression Total Score: 1 12/18/19 24 3:08 PM EDT documented as of this encounter Care Teams Overlay Plastician Relationship Specialty Start Date End Date Briana Varela NP 230 [place] [address] PCP - General Family Medicine 06/11/23 documented as of this encounter
--- OUTSIDE RECORDS SUMMARY | 2025-06-01 16:09 | XMS_ITS | Encounter Summary ---
Author Organization [employer] Address [address] [facility] [address] [place] [address] Care Team Providers Care Range Ecologist Name Role Phone Briana Varela NP Primary Care Provider [phone] Encounter Details Date Type Department Care Team (Late st Contact Info) Description 04/06/2025 Results Follow-Up [facility] [address] [place] [address] Briana Varela NP [address] [place] [address] Chlamydia/N. Gonorrhoeae RNA, TMA, Urogenitial, Hepatitis C [...] Description 07/08/2025 11:00 AM EST Office Visit [facility] [address] [place] [address] Cheyanne Loya OD 267 [place] [address] 07/21/2025 9:30 AM EST Office Visit [facility] [address] [place] [address] Briana Varela NP [address] [place] [address] 07/27/2025 2:30 PM EST Clinical Support [facility] [address] [place] [address] Shyann Eckert RN 230 [place] [address] documented as of this encounter Visit Diagnoses Not on filedocumented in this encounter Additional Health Concerns Assessment Noted Time PHQ-9 Depression Total Score: 0 01/14/20 25 4:08 PM EDT documented as of this encounter Care Teams Range Ecologist Relationship Specialty Start Date End Date Briana Varela NP 230 [place] [address] PCP - General Family Medicine 06/11/23 documented as of this encounter
--- OUTSIDE RECORDS SUMMARY | 2025-06-01 16:09 | XMS_ITS | Encounter Summary ---
Author Organization [employer] Address [address] [facility] [address] [place] [address] Care Team Providers Care Social Service Director Name Role Phone Briana Varela NP Primary Care Provider [phone] Encounter Details Date Type Department Care Team (Late st Contact Info) Description 04/06/2025 Results Follow-Up [facility] MED[facility]INE 230 [place] [address] Briana Varela NP [address] [place] [address] Hepatitis C Antibody with Reflex to HCV, [...] Description 07/08/2025 11:00 AM EST Office Visit [facility] OPT[facility] [address] [place] [address] Cheyanne Loya OD [address] [place] [address] 07/21/2025 9:30 AM EST Office Visit [address] [address] Briana Varela NP 230 [place] [address] 07/27/2025 2:30 PM EST Clinical Support [address] [place] [address] Shyann Eckert, RN 230 [place] [address] documented as of this encounter Visit Diagnoses Not on filedocumented in this encounter Additional Health Concerns Assessment Noted Time PHQ-9 Depression Total Score: 0 01/14/20 25 4:08 PM EDT documented as of this encounter Care Teams Social Service Director Relationship Specialty Start Date End Date Briana Varela NP 230 [place] [address] PCP - General Family Medicine 06/11/23 documented as of this encounter
--- OUTSIDE RECORDS SUMMARY | 2025-06-01 16:09 | XMS_ITS | Encounter Summary ---
Author Organization [employer] Address [address] [facility] [address] [place] [address] Care Team Providers Care Asphalt Machine Operator Name Role Phone Briana Varela NP Primary Care Provider [phone] Reason for Visit * Reason Onset Date Comments Med Refill 09/30/2024 Encounter Details Date Type Department Care Team ([facility] st Contact Info) Description 09/30/2024 Refill [facility] 230 [place] [address] Briana Varela NP [address] [place] [address] Type 2 diabetes mellitus without complication, without long-term current use of insulin ([facility]) Social History Tobacco Use Types Packs/Day Years [...] Description 07/08/2025 11:00 AM EST Office Visit [facility] OPTOMET[facility] [address] [place] [address] Cheyanne Loya OD 267 [place] [address] 07/21/2025 9:30 AM EST Office Visit [facility] MEDICINE [address] [place] [address] Briana Varela NP 230 [place] [address] 07/27/2025 2:30 PM EST Clinical Support [facility] [address] [place] [address] Shyann Eckert, RN 230 [place] [address] documented as of this encounter Visit Diagnoses Diagnosis Type 2 diabetes mellitus without complication, without long-term current use of insulin (HCC) documented in this encounter Additional Health Concerns Assessment Noted Time PHQ-9 Depression Total Score: 1 12/18/19 24 3:08 PM EDT documented as of this encounter Care Teams Asphalt Machine Operator Relationship Specialty Start Date End Date Briana Varela NP 230 [place] [address] PCP - General Family Medicine 06/11/23 documented as of this encounter
--- OUTSIDE RECORDS SUMMARY | 2025-06-01 16:09 | XMS_ITS | Encounter Summary ---
Author Organization [employer] Address [address] [place] [address] Care Team Providers Care Automotive Electrical Helper Name Role Phone Briana Varela NP Primary Care Provider [phone] Reason for Visit * Reason Onset Date Comments Med Refill 11/09/2024 Encounter Details Date Type Department Care Team ([facility] st Contact Info) Description 11/09/2024 Refill [facility] [address] [place] [address] Briana Varela NP [address] [place] [address] Type 2 diabetes mellitus without complication, without long-term current use of insulin ([facility]); Burning sensation of lower extremity; On pre-exposure [...] Description 07/08/2025 11:00 AM EST Office Visit [facility] [address] [place] [address] Cheyanne Loya, ADOLFO [address] [place] [address] 07/21/2025 9:30 AM EST Office Visit [facility] [address] [place] [phone] Briana Varela NP [address] [place] [address] 07/27/2025 2:30 PM EST Clinical Support [address] [address] Shyann Eckert, RN [address] [place] [address] documented as of this encounter Visit Diagnoses Diagnosis Type 2 diabetes mellitus without complication, without long-term current use of insulin (HCC) Burning sensation of lower extremity On pre-exposure prophylaxis for HIV Essential hypertension Unspecified essential hypertension Pre-diabetes Other abnormal glucose documented in this encounter Additional Health Concerns Assessment Noted Time PHQ-9 Depression Total Score: 1 12/18/19 24 3:08 PM EDT documented as of this encounter Care Teams Automotive Electrical Helper Relationship Specialty Start Date End Date Briana Varela NP 230 [place] [address] PCP - General Family Medicine 06/11/23 documented as of this encounter
--- OUTSIDE RECORDS SUMMARY | 2025-06-01 16:09 | XMS_ITS | Encounter Summary ---
Author Organization [employer] Address [address] [place] [address] Care Team Providers Care Dub Room Engineer Name Role Phone Briana Varela NP Primary Care Provider [phone] Reason for Visit * Reason Onset Date Comments Med Refill 08/13/2024 Encounter Details Date Type Department Care Team ([facility] st Contact Info) Description 08/13/2024 Refill [facility] [address] [place] [address] Briana Varela NP [address] [place] [address] Type 2 diabetes mellitus without complication, without long-term current use of insulin ([facility]) Social History Tobacco Use Types [...] Description 07/08/2025 11:00 AM EST Office Visit [facility] [address] [place] [address] Cheyanne Loya OD [address] [place] [address] 07/21/2025 9:30 AM EST Office Visit [facility] [address] [place] [address] Briana Varela NP 230 [place] [address] 07/27/2025 2:30 PM EST Clinical Support [facility] [address] [place] [phone] Shyann Eckert, RN 230 [place] [address] documented as of this encounter Visit Diagnoses Diagnosis Type 2 diabetes mellitus without complication, without long-term current use of insulin (HCC) documented in this encounter Additional Health Concerns Assessment Noted Time PHQ-9 Depression Total Score: 1 12/18/19 24 3:08 PM EDT documented as of this encounter Care Teams Dub Room Engineer Relationship Specialty Start Date End Date Briana Varela NP 230 [place] [address] PCP - General Family Medicine 06/11/23 documented as of this encounter
--- OUTSIDE RECORDS SUMMARY | 2025-06-01 16:09 | XMS_ITS | Encounter Summary ---
Author Organization [employer] Address [address] [place] [address] 7 [place] [address] Care Team Providers Care Brand Coordinator Name Role Phone Jacklyn MercadoP Primary Care Provider Briana Padilla NP Primary Care Provider [phone] Encounter Details Date Type Department Care Team (Late st Contact Info) Description 10/01/2022 Orders Only [facility] [address] [place] [address] Ailyn Arshad LPN Social History Tobacco Use [...] Description 07/08/2025 11:00 AM EST Office Visit [facility] [address] [place] [address] Cheyanne Loya OD [address] [place] [address] 07/21/2025 9:30 AM EST Office Visit [facility] [address] [place] [address] Briana Varela NP [address] [place] [address] 07/27/2025 2:30 PM EST Clinical Support [facility] [address] [place] [address] Shyann Eckert, RN [address] [place] [address] documented as of this encounter Visit Diagnoses Not on filedocumented in this encounter Care Teams Brand Coordinator Relationship Specialty Start Date End Date Jacklyn Mercado FNP PCP - General Family Medicine 10/24/21 06/10/23 Briana Varela NP [address] [place] [address] PCP - General Family Medicine 06/11/23 documented as of this encounter
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
--- OUTSIDE RECORDS SUMMARY | 2025-06-01 16:09 | XMS_ITS | Encounter Summary ---
Author Organization [employer] Address [address] [place] [address] Care Team Providers Care Fighting Vehicle Infantryman Name Role Phone Briana Varela NP Primary Care Provider [phone] Reason for Visit * Reason Onset Date Comments Medication Question 03/12/2025 Encounter Details Date Type Department Care Team ([facility] Contact Info) Description 03/12/2025 Telephone [facility] [address] [place] [address] Briana Varela NP [address] [place] [address] Medication Question Social History Tobacco Use Types [...] 4:50 PM EDT Pty reports now has [facility] . Chart updated with new insurance . Pt requesting ozempic documented in this encounter Plan of Treatment Upcoming Encounters Date Type Department Care Team (Late st Contact Info) Description 07/08/2025 11:00 AM EST Office Visit [facility] [address] [place] [address] Cheyanne Loya, ADOLFO [address] [place] [address] 07/21/2025 9:30 AM EST Office Visit [facility] [address] [place] [address] Briana Varela NP [address] [place] [address] 07/27/2025 2:30 PM EST Clinical Support [facility] [address] [place] [address] Shyann Eckert, RN [address] [place] [address] documented as of this encounter Visit Diagnoses Not on filedocumented in this encounter Additional Health Concerns Assessment Noted Time PHQ-9 Depression Total Score: 0 01/14/20 25 4:08 PM EDT documented as of this encounter Care Teams Fighting Vehicle Infantryman Relationship Specialty Start Date End Date Briana Varela NP [address] [place] [address] PCP - General Family Medicine 06/11/23 documented as of this encounter
--- OUTSIDE RECORDS SUMMARY | 2025-06-01 16:09 | XMS_ITS | Encounter Summary ---
Author Organization [employer] Address [address] [place] [address] Care Team Providers Care Retail Inventory Control Clerk Name Role Phone Briana Varela NP Primary Care Provider [phone] Reason for Visit * Reason Onset Date Comments Med Refill 10/09/2024 Encounter Details Date Type Department Care Team (Late st Contact Info) Description 10/09/2024 Refill [facility] [address] [place] [address] Briana Varela NP [address] [place] [address] Type 2 diabetes mellitus without complication, without long-term current use of insulin ([facility]); Burning sensation of lower extremity; Pre-diabetes [...] Description 07/08/2025 11:00 AM EST Office Visit [facility] [address] [place] [address] Cheyanne Loya, ADOLFO [address] [place] [address] 07/21/2025 9:30 AM EST Office Visit [facility] [address] [place] [address] Briana Varela NP [address] [place] [address] 07/27/2025 2:30 PM EST Clinical Support [facility] [address] [place] [phone] Shyann Eckert RN [address] [place] [address] documented as of this encounter Visit Diagnoses Diagnosis Type 2 diabetes mellitus without complication, without long-term current use of insulin (HCC) Burning sensation of lower extremity Pre-diabetes Other abnormal glucose documented in this encounter Additional Health Concerns Assessment Noted Time PHQ-9 Depression Total Score: 1 12/18/19 24 3:08 PM EDT documented as of this encounter Care Teams Retail Inventory Control Clerk Relationship Specialty Start Date End Date Briana Varela NP [address] [place] [address] PCP - General Family Medicine 06/11/23 documented as of this encounter
[2025-06-01 17:08] LABS: Alanine Aminotransferase 37 U/L (0-40); Albumin Level 3.9 g/dL (3.5-5.0); Alkaline Phosphatase 111 U/L (39-117); Anion Gap 11 (12-20); Aspartate Amino Transferase 35 U/L (5-37); Blood Urea Nitrogen 13 mg/dL (9-16); Calcium 8.5 mg/dL (8.4-10.2); Carbon Dioxide 26 mmol/L (22-29); Chloride 107 mmol/L (96-108); Estimated Glomerular Filt Rate > 60; Potassium 3.8 mmol/L (3.3-5.1); Sodium 140 mmol/L (135-145); Total Protein 7.1 g/dL (6.5-8.0)
[2025-06-02 05:17] LABS: ~HepC Num1 0.18 S/CO (0.00-0.79); ~Hepatitis C Antibody Nonreactive (Nonreactive)
[2025-06-03 07:48] LABS: HIV RNA PCR Qn Copies NOT DETECTED copies/mL (NOT DETECTED); HIV RNA PCR Qn Log Copies NOT DETECTED (NOT DETECTED)
== END 2025-06-01 14:48 | disposition home or self-care (01) ==
LOC: HO.HHCL 14:47
PROVIDERS: PCP Nurse Practitioner; Visit Provider Nurse Practitioner
DX: I10 Essential (primary) hypertension (principal); E11.9 Type 2 diabetes mellitus without complications; Z29.81 Encounter for HIV pre-exposure prophylaxis
CPT/HCPCS: 36415; 80048; 80076; 86592; 86803; 87536

== ENCOUNTER 2025-08-05 13:33 | Outpatient (REF) | payer OTHER, SELFPAY ==
[2025-08-05 16:56] LABS: Microalbum/Creatinine Ratio Ur 8.0 ug/mg cr (<30)
[2025-08-06 05:27] LABS: HIV Num 1 0.05 S/CO (0.00-0.99); ~HepC Num1 0.16 S/CO (0.00-0.79); ~Hepatitis C Antibody Nonreactive (Nonreactive)
== END 2025-08-05 13:34 | disposition home or self-care (01) ==
LOC: HO.HHCL 13:33
PROVIDERS: PCP Nurse Practitioner; Visit Provider Nurse Practitioner
DX: Z11.4 Encounter for screening for human immunodeficiency virus [HIV] (principal); Z11.59 Encounter for screening for other viral diseases; E11.9 Type 2 diabetes mellitus without complications; I10 Essential (primary) hypertension; Z79.899 Other long term (current) drug therapy
CPT/HCPCS: 36415; 82043; 82570; 86592; 86803; 87389

== ENCOUNTER 2025-08-11 08:26 | Outpatient (AMB) | payer OTHER, SELFPAY ==
--- NOTE | 2025-08-11 10:26 | A.OFFVIS_ITS ---
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* Hand Folder Required: Yes Hand Folder Services: Hand Folder Present Information Interpreted: clinical only Allergies No Known Allergies Allergy (Verified 08/11/25 10:28) Medication List - Last Reconciled 08/11/25 by Isaias Roach MD empagliflozin 10 mg PO DAILY metformin 850 mg PO DAILY olmesartan 40 mg PO DAILY semaglutide (Ozempic) 1 mg subcut QWEEK HPI 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 LIBRARIAN*: Details: Start time: 10.18m, End time: 11.18am ?I spent 55 minutes speaking with the patient on the phone plus an additional 5 minutes reviewing and updating records for a total of 60 minutes HPI Comments Details: Previous weight loss efforts: self diet, Ozempic: 4lbs Wakes up: 9am, Sleeps: 1am Breakfast: 10am (eggs, cereal) Lunch: 3-4pm (rice, meat, chicken, corn, tortilla) Dinner: occasionally 9pm (same lunch) Snacks: 7-8pm (nachos) when there is no dinner Exercise: treadmill at home (inclines and tracks calories) Beverages: Coffee: 2 cup/d (cream and sugar), Tea: (3/wk (with honey), Soda: zero calories, Juice: none, ETOH: 1/wk (wine 3-4 glasses, beer: 10) PFSH Medical History (Updated 08/11/25 @ 10:35 by Isaias Roach MD) Hypertension Non-insulin dependent type 2 diabetes mellitus Morbid obesity Surgical History (Updated 06/08/25 @ 13:49 by Stephanie Obando CMA) Hx of appendectomy Family History (Updated 06/08/25 @ 13:50 by Stephanie Obando CMA) Mother Hypertension Obesity Father Liver problem Social History (Updated 06/08/25 @ 13:49 by Stephanie Obando CMA) Alcohol intake: current Alcohol intake frequency: a few times a month Patient Tobacco Use Status: Current someday Tobacco user Cigarettes Per Day: 2 Physical Exam Vital Signs: BMI result Body Mass Index 46.3 Telehealth Telehealth Telehealth Platform: Telephone Location of provider rendering services: practice address Location of patient: address on file Patient Identification confirmed using: Name, : Yes Telehealth method: voice only Patient verbally consented to treatment: Yes Patient verbally consented to billing insurance company: Yes Patient informed of any privacy concerns related to visit: Yes Minutes spent on Phone/Video with Pt.: 60 Assessment & Plan Assessment & Plan (1) Morbid obesity: Code(s): E66.01 - Morbid (severe) obesity due to excess calories Category: Medical Plan: 1.? Plan for lap sleeve gastrectomy. If diaphragmatic or ventral hernias are present at time of surgery, these will be repaired laparoscopically as well. I emphasized the importance of close follow-up, adherence to instructions and good communication. The surgery does not replace the need to change your lifestlyle which is the cause of the obesity problem. The surgery provides the motivation to try again to change your lifestyle, it reduces the appetite and make the transition to a better lifestyle easier and doubles the amount of weight you would lose compared to doing the lifestyle change without the surgery. You will need to be on a liquid diet with protein shakes for 2 weeks before surgery to maximize weight loss and boost your nutritional status to recover better from surgery and also for the first two weeks after surgery to let the stomach heal before we introduce other foods. After the first 2 weeks we will introduce protein bars and soft foods like scrambled eggs, cottage cheese and yogurt and after the 6th week will introduce meat, fish and cooked vegetables in small amounts. Over time you should be able to eat everything in small amounts. Side effects like nausea, vomiting, heartburn or abdominal pain are not common in the practice unless you are not following in the practice. This operation requires lifetime commitment to following in our practice and communication with me. You will much less weight and experience side effects if you don?t communicate or not following in the practice. Complications are rare and in our practice is about 1/10 of the national average. However, you can develop bleeding that may require transfusion (hasn?t happened for year in the practice), you may from complications (we did not have any deaths in the practice) and infections. Infections are usually a result of breakdown in communication or not understanding or following directions correctly. They are difficult to treat, they can happen during the first 6 weeks, they may require to be in the hospital for weeks or even months, not being able to eat by mouth and you may have drains and surgeries to try and correct the issue. Other risks and complications include possible conversion to an open procedure, leaks, small bowel obstruction, blood clots, cardiac, or pulmonary complications, as terminal press operator complications such as ulcers, insufficient weight loss and vitamin deficiencies. 2. Nutritional counseling. Start with one CELEBRATE REBUILD protein (buy online with the link I gave you) shake (TWO scoops in 8oz low fat unsweetened almond milk) at 10am-12pm, 1 protein bar (CELEBRATE protein bars, buy at [facility] [employer] [facility], buy online with the link I gave you) ) at 1pm-3pm, another CELEBRATE REBUILD protein shakes (TWO scoops in 8oz low fat unsweetened almond milk) at 4pm-6pm, dinner at 7pm (12 forks of protein and 12 forks of salad/vegetables) AND another Celebrate protein bar at 9pm-11pm, another HALF protein bar after dinner at midnight to 1am. So you do 2 protein shakes, 2.5 protein bars and one meal per day. Meal to include lean meat (beef, fish, pork, turkey, chicken), or new zealander yogurt, or egg whites, or beans with a salad with olive oil and fruits (berries, pears, apples, kiwi). Avoid salt, breads, potatoes, rice, pasta, desserts. 3. Each shake would be drunk slowly, like coffee in a period of 2 hours. 4. Cut each bar in 4 pieces and eat each piece in 30min ?to make each bar last 2 hours. 5. I emphasized the importance of measuring accurately the food portion and measure it when serving the food in plate 6. The meal portions include 12 full-size forks of meat and 12 full-size forks of salad. You always eat the meat portion but you can replace up to 6 forks for salad/vegetables with rice, potatoes or pasta, or a fruit ?if you like. The less you do it the better weight loss will be. 7. One full-size fork is what it can be scooped on the fork without falling aside and not what can be bit with the fork. Use regular forks like those you find in a typical restaurant. 8.? Please buy the body composition scale we discussed and send me weight measurements as soon as possible and then once a week. Always include your diet and exercise plan. 9. Start treadmill with an incline of 2.0 and speed of 3.0. Increase incline by 1 every 3 min to a max incline of 8.0, stay 3min at 8.0 and then return to 2.0 and repeat same steps until calorie goal is met. Goal is to burn 2000 calories per week on exercise, which means either 300 calories daily. 10. Emphasized the importance of checking his blood glucose levels frequently and daily and to report to me any blood glucose below 100, so I can adjust his insulin and prevent hypoglycemic episodes 11. Emphasized the importance of monitoring the blood pressure daily in am when wakes up and two more times throughout the day. If systolic blood pressure is 110 mmHg, or less I explained to the patient that needs to notify me. Also I explained the symptoms of orthostatic hypotension (dizziness and lightheadedness) for which the patient also needs to notify me. 12. Goal is to lose at least 1.5-2lbs per week 13. Goal to lose 10% of your weight before surgery, which is about 41lbs. Ultimate weight goal: 320lbs before surgery 14. Please follow the diet plan exactly without any change. If you don't like something about the plan or you feel hungry you need to communicate with me so I can help you revise the plan. You should not change the plan yourself 15. To be scheduled for EGD to assess the stomach's anatomy. The possibility of biopsies was discussed. Patient needs to avoid use of NSAIDs and aspirin for 1 week prior to EGD. You must be on liquids only the day before your endoscopy. Risks of perforation and bleeding was discussed with the patient. This will be an outpatient procedure with IV sedation. 16. I ordered a medication to help you with the diabetes which is called Ashley ferrara. My office will try to authorize it. Please let me know when you receive it so I can give you a meal and exercise plan. Common side effects include nausea, vomiting, constipation, diarrhea, abdominal pain. Please let me know if you develop any of these symptoms. Orders: Orders Complete Blood Count Auto Diff Today E11.9 - Type 2 diabetes mellitus without complications, E66.01 - Morbid (severe) obesity due to excess calories, I10 - Essential (primary) hypertension Lipid Panel Today E11.9 - Type 2 diabetes mellitus without complications, E66.01 - Morbid (severe) obesity due to excess calories, I10 - Essential (primary) hypertension Vitamin B12 and Folate Today E11.9 - Type 2 diabetes mellitus without complications, E66.01 - Morbid (severe) obesity due to excess calories, I10 - Essential (primary) hypertension Vitamin A Today E11.9 - Type 2 diabetes mellitus without complications, E66.01 - Morbid (severe) obesity due to excess calories, I10 - Essential (primary) hypertension Ferritin Today E11.9 - Type 2 diabetes mellitus without complications, E66.01 - Morbid (severe) obesity due to excess calories, I10 - Essential (primary) hypertension US abdomen comp w elastography Today E11.9 - Type 2 diabetes mellitus without complications, E66.01 - Morbid (severe) obesity due to excess calories, I10 - Essential (primary) hypertension XR chest 2V Today E11.9 - Type 2 diabetes mellitus without complications, E66.01 - Morbid (severe) obesity due to excess calories, I10 - Essential (primary) hypertension ECG 12 lead EKG Today E11.9 - Type 2 diabetes mellitus without complications, E66.01 - Morbid (severe) obesity due to excess calories, I10 - Essential (primary) hypertension Insulin Today E11.9 - Type 2 diabetes mellitus without complications, E66.01 - Morbid (severe) obesity due to excess calories, I10 - Essential (primary) hypertension Hemoglobin A1c Today E11.9 - Type 2 diabetes mellitus without complications, E66.01 - Morbid (severe) obesity due to excess calories, I10 - Essential (primary) hypertension H Pylori Breath Test Today E11.9 - Type 2 diabetes mellitus without complications, E66.01 - Morbid (severe) obesity due to excess calories, I10 - Essential (primary) hypertension IRON PROFILE Today E11.9 - Type 2 diabetes mellitus without complications, E66.01 - Morbid (severe) obesity due to excess calories, I10 - Essential (primary) hypertension Comprehensive Met. Panel Today E11.9 - Type 2 diabetes mellitus without complications, E66.01 - Morbid (severe) obesity due to excess calories, I10 - Essential (primary) hypertension Zinc Today E11.9 - Type 2 diabetes mellitus without complications, E66.01 - Morbid (severe) obesity due to excess calories, I10 - Essential (primary) hypertension C Reactive Protein Today E11.9 - Type 2 diabetes mellitus without complications, E66.01 - Morbid (severe) obesity due to excess calories, I10 - Essential (primary) hypertension Vitamin B1 Today E11.9 - Type 2 diabetes mellitus without complications, E66.01 - Morbid (severe) obesity due to excess calories, I10 - Essential (primary) hypertension TSH reflex Free T4 Today E11.9 - Type 2 diabetes mellitus without complications, E66.01 - Morbid (severe) obesity due to excess calories, I10 - Essential (primary) hypertension Vitamin D 25-OH Total Today E11.9 - Type 2 diabetes mellitus without complications, E66.01 - Morbid (severe) obesity due to excess calories, I10 - Essential (primary) hypertension FL upper GI w air Today E11.9 - Type 2 diabetes mellitus without complications, E66.01 - Morbid (severe) obesity due to excess calories, I10 - Essential (primary) hypertension Referrals Behavioral Health Referral E11.9 - Type 2 diabetes mellitus without complications, E66.01 - Morbid (severe) obesity due to excess calories, I10 - Essential (primary) hypertension Nutrition/Dietitian Referral E11.9 - Type 2 diabetes mellitus without complications, E66.01 - Morbid (severe) obesity due to excess calories, I10 - Essential (primary) hypertension Medications: New tirzepatide (Mounjaro) for 4 weeks 2.5 mg (0.5 mL) subcut QWEEK 2 mL 0RF E11.9 - Type 2 diabetes mellitus without complications
[2025-08-11 10:47] VITALS: BMI 46.3
== END 2025-08-11 11:19 | disposition home or self-care (01) ==
LOC: HO.HBS 08:26
PROVIDERS: PCP Nurse Practitioner; Visit Provider Surgery
DX: E66.01 Morbid (severe) obesity due to excess calories (principal); Z68.42 Body mass index [BMI] 45.0-49.9, adult
CPT/HCPCS: 98011

== ENCOUNTER 2025-08-17 12:46 | Outpatient (REF) | payer OTHER, SELFPAY ==
--- NOTE | ~2025-08-17 | XR_ITS ---
EXAMINATION: XR CHEST 2 VIEWS HISTORY: E66.01 - Morbid (severe) obesity due to excess calories COMPARISON: Comparison is made with the prior examination dated 07/01/2024. FINDINGS: PA and lateral views of the chest are submitted. The lungs are expanded and clear. There is no pleural effusion, pneumothorax, or pulmonary vascular congestion. The heart is normal in size. The bones are intact. XR/XR chest 2V IMPRESSION: No acute cardiopulmonary abnormality. Electronically signed by: Bishop Aldrich MD 08/17/2025 01:55 PM EST
[2025-08-17 13:05] LABS: MANUAL DIFF FLAG NO
--- NOTE | 2025-08-17 13:09 | ECG_ITS ---
Test Reason : obesity Blood Pressure : */* mmHG Vent. Rate : 75 BPM Atrial Rate : 75 BPM P-R Int : 162 ms QRS Dur : 82 ms QT Int : 370 ms P-R-T Axes : 17 48 39 degrees QTcB Int : 413 ms Normal sinus rhythm Normal ECG No previous ECGs available Referred By: Isaias Roach Electronically Signed By: Mac Zavala
[2025-08-17 13:44] LABS: Hematocrit 47.5 % (42.0-52.0); Hemoglobin 16.2 g/dl (14.0-18.0); Imm Gran Abs Auto 0.02 X10*3/uL (0.00-0.03); Imm Gran Pct Auto 0.2 % (0.0-0.4); Lymphocytes Absolute Auto 3.6 X10*3/uL (1.2-4.9); Mean Corpuscular HGB Conc 34.1 g/dl (31.0-36.0); Mean Corpuscular Hemoglobin 28.9 pg (27.0-33.0); Mean Corpuscular Volume 84.8 fL (80.0-98.0); NRBC Abs Auto 0.000 X10*3/uL (0.0-0.012); NRBC Pct Auto 0.0 /100WBC (0.0-0.2); Platelet Count 297 X10*3/uL (160-400); Red Blood Count 5.60 X10*6/uL (4.60-5.80); White Blood Count 9.3 X10*3/uL (4.8-10.8)
[2025-08-17 14:07] LABS: Alanine Aminotransferase 33 U/L (0-40); Albumin Level 4.2 g/dL (3.5-5.0); Alkaline Phosphatase 92 U/L (39-117); Anion Gap 12 (12-20); Aspartate Amino Transferase 32 U/L (5-37); Blood Urea Nitrogen 15 mg/dL (9-16); Calcium 9.4 mg/dL (8.4-10.2); Carbon Dioxide 27 mmol/L (22-29); Chloride 104 mmol/L (96-108); Cholesterol 132 mg/dL (<200); Estimated Glomerular Filt Rate > 60; HDL Cholesterol 31 mg/dL (>40); Iron 137 mcg/dL (45-160); Percent Iron Saturation 52 % (15-50); Potassium 3.7 mmol/L (3.3-5.1); Sodium 139 mmol/L (135-145); Total Iron Binding Capacity 265 mcg/dL (228-428); Total Protein 7.6 g/dL (6.5-8.0); Triglycerides 166 mg/dL (<150); Unsaturated Iron Binding 128 ug/dL
[2025-08-17 14:26] LABS: Ferritin 387 ng/mL (20-250)
[2025-08-17 14:39] LABS: Folate 8.0 ng/mL (> or = 4.0); Vitamin B12 422 pg/mL (200-900)
--- OUTSIDE RECORDS SUMMARY | 2025-08-17 16:37 | XMS_ITS | Encounter Summary ---
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 Name Role Phone Briana Varela NP Primary Care Provider [phone] Reason for Visit * Reason Onset Date Comments Med Refill 07/16/2024 Encounter Details Date Type Department Care Team ([facility] st Contact Info) Description 07/16/2024 Refill [facility] [address] [place] [address] Briana Varela NP [address] [place] [address] Type 2 diabetes mellitus without complication, without long-term current use of insulin ([facility]) Social History Tobacco Use Types [...] Sex Male 10:40 AM EDT Gender Identity Not Listed 05/19/2024 11:18 PM EDT Sexual Orientation Transgender Female 08/09/2024 10:11 PM EST Sexual Orientation [place] 08/09/2024 10 :11 PM EST Sexual Orientation Queer 08/09/2024 10 :11 PM EST documented as of this encounter Plan of Treatment Upcoming Encounters Date Type Department Care Team (Late st Contact Info) Description 09/17/2025 10:15 AM EST Office Visit [address] [address] Briana Varela NP [address] [place] [address] 10/06/2025 10:00 AM EST Clinical Support [address] [address] Shyann Eckert, FELECIA [address] [place] [address] documented as of this encounter Visit Diagnoses Diagnosis Type 2 diabetes mellitus without complication, without long-term current use of insulin (HCC) documented in this encounter Additional Health Concerns Assessment Noted Time PHQ-9 Depression Total Score: 1 12/18/19 24 3:08 PM EDT documented as of this encounter Care Teams Cylinder Valve Repairer Relationship Specialty Start Date End Date Briana Varela NP [address] [place] [address] PCP - General Family Medicine 06/11/23 documented as of this encounter
--- OUTSIDE RECORDS SUMMARY | 2025-08-17 16:37 | XMS_ITS | Clinical Summary ---
Author Organization [employer] Address [address] [place] [address] [address] [place] [address] Care Team Providers Care Daycare Director Name Role Phone Marioana paula Briana BEJARANO Primary Care Provider [phone] Allergies No known active allergies Medications Diclofenac Sodium (Voltaren) 1 % gelIndications: Acute midline thoracic back pain Apply 2 g topically if needed in the morning and at bedtime (muscle pain). 100 g 3 023 Active magnesium, as gluconate, (Magonate) 500 (27 Mg) MG tabletIndicatio ns:Burning sensation of lower extremity Take 1 tablet (27 mg) by mouth 2 times daily. 60 tablet 025 2025 Active fluticasone (Flonase) 50 MCG/ACT [...] without long-term current use of insulin (HCC) Use to test blood sugar two times daily 100 each 12 025 2025 Active Alcohol Swabs 70 % padsIndications :Type 2 diabetes mellitus without complication, without long-term current use of insulin (HCC) Use to test blood sugar 2 times daily 100 each 11 2 025 Active Lancets miscIndications :Type 2 diabetes mellitus without complication, without long-term current use of insulin ([facility]) Use to test blood sugar 2 times daily 100 each Active Blood Glucose Monitoring Suppl (FreeStyle [place] Lite) w/Device kitIndications: Type 2 diabetes mellitus without complication, without long-term current use of insulin ([facility]) USE TO TEST BLOOD SUGAR TWICE A DAY 1 kit Active empagliflozin (Jardiance) 10 MGIndications:T ype 2 diabetes mellitus without complication, without long-term current use of insulin ([facility]) Take 1 tablet (10 mg) by mouth Once per day. 30 tablet 11 08/02/20 3:51 PM EST 2025 Active olmesartan (BENIcar) 40 MG tabletIndicatio ns:Essential hypertension Take 1 tablet (40 mg) by mouth Once per day. 90 tablet 1 Active metFORMIN (Glucophage) 850 MG tabletIndicatio ns:Pre-diabetes TAKE 1 TABLET BY MOUTH WITH BREAKFAST 90 tablet 1 Active Apretude 600 MG/3ML Suspension Extended ReleaseIndicati ons:On pre-exposure prophylaxis for HIV INJECT 600 MG INTRAMUSCULARLY (VENTROGLUTEAL) EVERY 8 WEEKS. BRING TO OFFICE FOR ADMINISTRATION. 3 mL 3 08/05/20 1:12 PM EST Active semaglutide (Ozempic) 4 MG/3ML solution pen-injectorInd ications:Morbid obesity (CMS/HCC) ([facility]),Type 2 diabetes mellitus without complication, without long-term current use of insulin ([facility]) Inject 1 mg under the skin 1 (one) time per week. 1 each 08/02/20 3:51 PM EST 2024 Active ibuprofen 600 MG tablet TAKE 1 TABLET BY MOUTH EVERY 6 HOURS NEEDED FOR MILD PAIN 40 tablet 1 08/02/20 3:51 PM EST Active Cabotegravir ER (Apretude) 600 MG/3ML Suspension Extended ReleaseIndicati ons:On pre-exposure prophylaxis for HIV Inject 600 mg into the muscle every 8 (eight) weeks. Ventrogluteal 3 mL 3 025 2024 Discontinued ibuprofen 600 MG tablet Take 1 tablet (600 mg) by mouth every 6 (six) hours if needed for mild pain. 40 tablet 1 025 2024 Discontinued Semaglutide,0.2 5 or 0.5MG/DOS, (Ozempic, 0.25 or 0.5 MG/DOSE,) 2 MG/3ML solution pen-injectorInd ications:Type 2 diabetes mellitus without complication, without long-term current use of insulin (HCC) Inject 0.25 mg under the skin 1 (one) time per week for 28 days, THEN 0.5 mg 1 (one) time per week for 28 days. 3 mL 025 2024 Discontinued(D ose adjustment) Hospital, Clinic, or Other Facility Administered Medication [...] prophylaxis for HIV 600 mg IM Once 08/05/2025 08/05/2025 Ended Active Problems Problem Noted Date Diagnosed [...] control and overall cardiac health Morbid obesity ([facility]) 07/01/2024 Assessment & Plan (04/27/2025 7:28 AM EDT): - Considering bariatric surgery for weight loss. Recommendation to trial Ozempic for weight loss prior to pursuing surgical intervention. - Initiate Ozempic as above. If weight loss is insufficient at highest dose, consider referral to bariatric surgery programs at [facility], [facility], or [facility]. Referral to be sent upon patient [...] Encouraged to upload home BP log into [email or web address] for my review -microalbumin: see plan below [...] Encounters Date Type Department Care Team Description 08/17/2025 Orders Only GENERIC EXTERNAL DATA DEPARTMENT Provider, Generic External Data 08/13/[address] [address] Briana Varela NP CHARTPREP 08/09/2025 Results Follow-Up [address] [address] Briana Varela NP Hepatitis C Antibody with Reflex to HCV, RNA, Quantitative, Real-Time PCR, HIV-1/2 Antigen and Antibodies, Fourth Generation, with Reflexes, RPR (Monitor) with Reflex to Titer 08/05/2025 1:00 PM EST Clinical Support [address] [address] Shyann Eckert, FELECIA On pre-exposure prophylaxis for HIV (Primary Dx) 08/05/2025 Orders Only [address] [address] Briana Varela NP 08/05/2025 Patient Outreach [address] [address] Briana Varela NP Pre-visit Planning (SDOH screening was completed on 01/06/2025) 08/05/2025 Travel 07/29/2025 Refill [facility] [address] [place] [phone] Ailyn Cotton DO 07/27/2025 Orders Only [address] [address] Briana Varela NP Morbid obesity (CMS/HCC) (HCC) (Primary Dx); Type 2 diabetes mellitus without complication, without long-term current use of insulin (HCC) 07/27/2025 Telephone [facility] [address] [place] [phone] Shyann Eckert, FELECIA 07/27/2025 Refill [facility] [address] [place] [phone] Rani Sheriff NP Type 2 diabetes mellitus without complication, without long-term current use of insulin (HCC) 07/26/2025 Telephone [facility] [address] [place] [phone] Akira Islas, FELECIA Injectable PrEP 07/21/2025 Refill [facility] [address] [place] [phone] Rani Sheriff NP Type 2 diabetes mellitus without complication, without long-term current use of insulin (HCC) 07/21/2025 Refill [facility] [address] [place] [address] Briana Varela NP On pre-exposure prophylaxis for HIV 07/14/2025 Patient Outreach [facility] [address] [place] [address] Briana Varela NP Pre-visit Planning (SDOH rescheduled. ) 07/06/2025 Telephone [facility] [address] [place] [phone] Briana Varela NP Prior Authorization 06/26/2025 Refill [facility] [address] [place] [address] Briana Varela NP Type 2 diabetes mellitus without complication, without long-term current use of insulin (HCC); Essential hypertension; Pre-diabetes 06/26/2025 Refill [facility] [address] [place] [phone] Mi Santos MD Type 2 diabetes mellitus without complication, without long-term current use of insulin (HCC) 06/08/2025 Orders Only [facility] [address] [place] [phone] Ngozi Singh RN 06/03/2025 Results Follow-Up [facility] [address] [place] [phone] Briana Varela NP POCT Glucose, POCT HGB A1C, Basic Metabolic Panel 06/03/2025 Results Follow-Up [facility] MO[facility] [place] [phone] Briana Varela NP Hepatic Function Panel, Hepatitis C Antibody with Reflex to HCV, RNA, Quantitative, Real-Time PCR, HIV-1 RNA, Quantitative, Real-Time PCR, RPR (Monitor) with Reflex to Titer 06/01/2025 2:30 PM EDT Clinical Support [address] [place] [address] Muriel Rivers RN Encounter for HIV pre-exposure prophylaxis (Primary Dx) 06/01/2025 Orders Only [facility] [place] Briana Varela NP 06/01/2025 Travel 05/25/2025 [address] [place] [address] Briana Varela NP Type 2 diabetes mellitus without complication, without long-term current use of insulin ([facility]) 05/18/2025 Telephone [facility] [place] [address] Briana Varela NP July Recall from Last 3 Months Immunizations Immunization Administration [...] Description 09/17/2025 10:15 AM EST Office Visit [facility] [address] [place] [phone] Briana Varela NP [address] [place] [address] 10/06/2025 10:00 AM EST Clinical Support [facility] [address] [place], [place] [phone] Shyann Eckert, FELECIA [address] [place] [address] Health Maintenance Due Date Last Done Comments Eye Exam 2002 Family Planning (PISQ) 2007 HPV Vaccines (1 - 3-dose series) 2007 COVID-19 Vaccine ( season) 2025 11/13/2021, 12/12/2020 Influenza Vaccine (#1) 2025 11/17/2021 SDOH Screening 01/06/2026 01/06/2025 Depression Screening 01/13/2026 01/13/2025, 01/14/20 25 Diabetes: Hemoglobin A1C 02/15/202608/17/2 025, 04/14/2025, 01/15/2025, Additional history exists Disability Screening 03/30/2026 03/30/2025 Tobacco Screening 04/06/2026 04/06/2025 Alcohol/Substance Use Screening 04/14/2026 04/14/2025 Diabetes: Foot Exam 04/14/2026 04/14/2025, 04/14/2025, 04/14/2025, Additional history exists Diabetes: Urine Protein Screening 08/05/2026 08/05/2025, 09/04/2024, 05/20/2024, Additional history exists Lipid Panel 08/17/2026 08/17/2025, 12/31, 09/04/2024, Additional history exists DTaP/Tdap/Td Vaccines (2 - Td or Tdap) 10/09/2033 10/09/2023 Zoster Vaccines (1 of 2) 2042 RSV Patients and Patients Aged 60 years or older (1 - 1-dose 75+ series) 2067 Hepatitis B Vaccines Completed 04/08/2024, 11/06/2023, 10/09/2023 Pneumococcal Vaccine: Pediatrics (0 to 5 Years) and At-Risk Patients (6 to 49) Years Completed 07/01/2024 HIV Screening Completed 08/05/2025, 05/05, 04/30/2025, Additional history exists Hepatitis C Screening Completed 08/05/2025 , 06/01/2025, 04/30/2025, Additional history exists HIB Vaccines Aged Out [...] on patient's age to complete this topic Goals Goal Patient Goal Type Associated Problems Recent Progress Patient-Stated? Author Help patients manage their type 2 diabetes Care Plan Help patients manage their type 2 diabetes No Bambi Pedraza Weekly blood pressure task Care Plan Weekly blood pressure task No Bambi Pedraza Help patients manage their type 2 diabetes Care Plan Help patients manage their type 2 diabetes No Bambi Pedraza Patient has chronic kidney disease Care Plan Patient has chronic kidney disease No Bambi Pedraza Weekly blood pressure task Care Plan Weekly blood pressure task No Bambi Pedraza Patient has chronic kidney disease Care Plan Patient has chronic kidney disease No Bambi Pedraza Weekly blood pressure task Care Plan Weekly blood pressure task No Lata Singh, RN Weekly blood pressure task Care Plan Weekly blood pressure task No Lata Singh, FELECIA Patient has chronic kidney disease Care Plan Patient has chronic kidney disease No Lata Singh RN Patient has chronic kidney disease Care Plan Patient has chronic kidney disease No Lata Singh RN Weekly blood pressure task Care Plan Weekly blood pressure task No Akira Islas RN Weekly blood pressure task Care Plan Weekly blood pressure task No Akira Islas RN Patient has chronic kidney disease Care Plan Patient has chronic kidney disease No Akira Islas RN Patient has chronic kidney disease Care Plan Patient has chronic kidney disease No Akira Islas RN Weekly blood pressure task Care Plan Weekly blood pressure task No Akira Islas RN Weekly blood pressure task Care Plan Weekly blood pressure task No Akira Islas RN Patient has chronic kidney disease Care Plan Patient has chronic kidney disease No Akira Islas RN Patient has chronic kidney disease Care Plan Patient has chronic kidney disease No Akira Islas RN Weekly blood pressure task Care Plan Weekly blood pressure task No Muriel Rivers RN Weekly blood pressure task Care Plan Weekly blood pressure task No Muriel Rivers RN Patient has chronic kidney disease Care Plan Patient has chronic kidney disease No Muriel Rivers RN Patient has chronic kidney disease Care Plan Patient has chronic kidney disease No Muriel Rivers RN Weekly blood pressure task Care Plan Weekly blood pressure task No Shyann Eckert RN Weekly blood pressure task Care Plan Weekly blood pressure task No Shyann Eckert RN Patient has chronic kidney disease Care Plan Patient has chronic kidney disease No Shyann Eckert RN Patient has chronic kidney disease Care Plan Patient has chronic kidney disease No Shyann Eckert RN Weekly blood pressure task Care Plan Weekly blood pressure task No Scottie Sherrie Weekly blood pressure task Care Plan Weekly blood pressure task No Scottie, Sherrie Patient has chronic kidney disease Care Plan Patient has chronic kidney disease No Scottie Sherrie Patient has chronic kidney disease Care Plan Patient has chronic kidney disease No Scottie Sherrie Weekly blood pressure task Care Plan Weekly blood pressure task No Briana Varela NP Weekly blood pressure task Care Plan Weekly blood pressure task No Briana Varela NP Patient has chronic kidney disease Care Plan Patient has chronic kidney disease No Briana Varela NP Patient has chronic kidney disease Care Plan Patient has chronic kidney disease No Briana Varela NP Weekly blood pressure task Care Plan Weekly blood pressure task No Scottie, Sherrie Weekly blood pressure task Care Plan Weekly blood pressure task No Scottie, Sherrie Patient has chronic kidney disease Care Plan Patient has chronic kidney disease No Scottie, Sherrie Patient has chronic kidney disease Care Plan Patient has chronic kidney disease No Scottie, Sherrie Weekly blood pressure task Care Plan Weekly blood pressure task No Scottie, Sherrie Weekly blood pressure task Care Plan Weekly blood pressure task No Scottie, Sherrie Patient has chronic kidney disease Care Plan Patient has chronic kidney disease No Scottie, Sherrie Patient has chronic kidney disease Care Plan Patient has chronic kidney disease No Scottie Sherrie Weekly blood pressure task Care Plan Weekly blood pressure task No Shyann Eckert RN Weekly blood pressure task Care Plan Weekly blood pressure task No Shyann Eckert RN Patient has chronic kidney disease Care Plan Patient has chronic kidney disease No Shyann Eckert RN Patient has chronic kidney disease Care Plan Patient has chronic kidney disease No Shyann Eckert RN Weekly blood pressure task Care Plan Weekly blood pressure task No Ashley Jones Weekly blood pressure task Care Plan Weekly blood pressure task No Ashley Jones Patient has chronic kidney disease Care Plan Patient has chronic kidney disease No Ashley Jones Patient has chronic kidney disease Care Plan Patient has chronic kidney disease No Ashley Jones Weekly blood pressure task Care Plan Weekly blood pressure task No Briana Varela NP Weekly blood pressure task Care Plan Weekly blood pressure task No Briana Varela NP Patient has chronic kidney disease Care Plan Patient has chronic kidney disease No Briana Varela NP Patient has chronic kidney disease Care Plan Patient has chronic kidney disease No Briana Varela NP Weekly blood pressure task Care Plan Weekly blood pressure task No Mary Santiago MA Weekly blood pressure task Care Plan Weekly blood pressure task No Mary Santiago MA Patient has chronic kidney disease Care Plan Patient has chronic kidney disease No Mary Santiago MA Patient has chronic kidney disease Care Plan Patient has chronic kidney disease No Mary Santiago MA Procedures Procedure Name Priority Date/Time Associated Diagnosis Comments XR CHEST 2 VIEWS Routine 08/17/2025 1:35 PM EST VITAMIN B12/FOLATE, SERUM PANEL Routine 08/17/2025 1:03 PM EST INSULIN Routine 08/17/2025 1:03 PM EST TSH W/REFLEX TO FT4 Routine 08/17/2025 1 :03 PM EST VITAMIN D,25-OH,TOTAL,IA Routine 08/17/2025 1:03 PM EST FERRITIN Routine 08/17/2025 1:03 PM EST LIPID PANEL, STANDARD Routine 08/17/2025 1:03 PM EST C-REACTIVE PROTEIN Routine 08/17/2025 1: 03 PM EST IRON AND TOTAL IRON BINDING CAPACITY Routine 08/17/2025 1:03 PM EST COMPREHENSIVE METABOLIC PANEL Routine 08/17/2025 1:03 PM EST HEMOGLOBIN A1C Routine 08/17/2025 1:03 PM EST CBC WITH AUTO DIFFERENTIAL Routine 08/17/2025 1:03 PM EST RPR (MONITOR) W/REFL TITER Routine 08/05/2025 1:41 PM EST HIV 1/2 ANTIGEN/ANTIBODY, FOURTH GENERATION W/RFL Routine 08/05/2025 1:41 PM EST HEPATITIS C AB W/REFL TO HCV RNA, QN, PCR Routine 08/05/2025 1:41 PM EST ALBUMIN, RANDOM URINE W/CREATININE Routine 08/05/2025 1:41 PM EST Type 2 diabetes mellitus without complication, without long-term current use of insulin (HCC) Essential hypertension POCT RAPID HIV SCREENING Routine 08/05/2025 1:31 PM EST On pre-exposure prophylaxis for HIV RPR (MONITOR) W/REFL TITER Routine 06/01/2025 2:52 PM EDT HIV 1 RNA, QUANTITATIVE REAL TIME PCR Routine 06/01/2025 2:52 PM EDT HEPATITIS C AB W/REFL TO HCV RNA, QN, PCR Routine 06/01/2025 2:52 PM EDT HEPATIC FUNCTION PANEL Routine 06/01/2025 2:52 PM EDT BASIC METABOLIC PANEL Routine 06/01/2025 2:52 PM EDT Type 2 diabetes mellitus without complication, without long-term current use of insulin (CMS/HCC) Essential hypertension POCT RAPID HIV SCREENING Routine 06/01/2025 8:23 AM EDT Encounter for HIV pre-exposure prophylaxis CHLAMYDIA/GONORRHEA - URINE ([place] [facility]) Routine 06/01/2025 CHLAMYDIA/GONORRHEA THROAT SWAB ([place] [facility]) Routine 06/01/2025 CHLAMYDIA/GONORRHEA RECTAL SWAB ([place] [facility]) Routine 06/01/2025 from Last 3 Months Results * XR Chest 2 Views (08/17/2025 1:35 PM EST) Anatomical Region Laterality Modality Chest Radiographic Jennifer ging 08/17/2025 1:35 PM EST Narrative 08/17/2025 1:58 PM EST [address] [address] XRay Report Signed Patient: Alessandro Albright MR# : [id number] : 1990 Acct:[id number] Age/Sex: 34 / M ADM Date: 08/17/25 Loc: [facility] Attending Dr: Isaias Roach MD Ordering Physician: Isaias Roach MD Date of Service: 08/17/25 Procedure(s): XR chest 2V Accession Number(s): [id number] cc: Briana Varela; Isaias Roach MD Reason for Exam: E66.01 - Morbid (severe) obesity due to excess calories EXAMINATION: XR CHEST 2 VIEWS HISTORY: E66.01 - Morbid (severe) obesity due to excess calories COMPARISON: Comparison is made with the prior examination dated 07/01/2024. FINDINGS: PA and lateral views of the chest are submitted. The lungs are expanded and clear. There is no pleural effusion, pneumothorax, or pulmonary vascular congestion. The heart is normal in size. The bones are intact. XR/XR chest 2V IMPRESSION: No acute cardiopulmonary abnormality. Electronically signed by: Bishop Aldrich MD 08/17/2025 01:55 PM EST Dictated By: Bishop Aldrich MD Signed By: <Electronically signed by Bishop Aldrich MD in OV> 08/17/25 1355 DD/ 1335 TD/TT: 08/17/25 1338 Petal Cutter: Procedure Note Donotuseinterpreter, Image - 08/17/[address] [address] XRay Report Signed Patient: Alessandro AlbrightMR# : [id number] : 1990Acct:[id number] Age/Sex: 34 / MADM Date: 08/17/25 Loc: [facility] Attending Dr: Isaias Roach MD Ordering Physician: Isaias Roach MD Date of Service: 08/17/25 Procedure(s): XR chest 2V Accession Number(s): [id number] cc: Briana Varela; Isaias Roach MD Reason for Exam: E66.01 - Morbid (severe) obesity due to excess calories EXAMINATION: XR CHEST 2 VIEWS HISTORY: E66.01 - Morbid (severe) obesity due to excess calories COMPARISON: Comparison is made with the prior examination dated 07/01/2024. FINDINGS: PA and lateral views of the chest are submitted. The lungs are expanded and clear. There is no pleural effusion, pneumothorax, or pulmonary vascular congestion. The heart is normal in size. The bones are intact. XR/XR chest 2V IMPRESSION: No acute cardiopulmonary abnormality. Electronically signed by: Bishop Aldrich MD 08/17/2025 01:55 PM EST RP Dictated By: Bishop Aldrich MD Signed By: <Electronically signed by Bishop Aldrich MD in OV> 08/17/25 1355 DD/ 1335 TD/TT: 08/17/25 1338 Petal Cutter: [facility] External Provider IMG XR PROCEDURES Edited Result - Final * (ABNORMAL) Vitamin D, 25-Hydroxy, Total, Immunoassay (08/17/2025 1:03 PM EST) Vitamin D 25-OH Total 10.0(L) >30 ng/mL [facility] Comment: Health Based Reference Values*< 20 ng/mL Wlkajodtw64-10 ng/mL Insufficient> 30 ng/mL Sufficient*Charisse ZHANG. N Engl J Med. 2007;357:266-280There is no well-established upper level of normal vitamin Dlevels. Some laboratories use 50 ng/mL as an upper limit ofnormal. However, toxicity is patient-dependent and may occurat any level. Careful correlation with the patient'spresentation is necessary and, if there is concern forvitamin D toxicity, treatment should be consideredirrespective of the serum level.Care must be taken in interpreting Vitamin D results fromdifferent laboratories and methodologies. Published datademonstrated that results from patients undergoinghemodialysis may show a negative bias when tested withvarious automated 25-OH vitamin D assays when compared toLC-MS/MS.When testing samples from patients whose predominant form ofVitamin D is Vitamin D2, such as patients receiving VitaminD2 supplementation, results that are subtherapeutic shouldbe confirmed with another method such as LC-MS/MS. 08/17/2025 1:03 PM EST 08/17/2025 1:03 PM EST us Generic External Data Provider LAB BLOOD ORDERAB LES Final Result Performing Organization Address [facility]/ZIP Co de Phone Number [facility] [address] [place] [phone] * Vitamin B12 (Cobalamin) and Folate Panel, Serum (08/17/2025 1:03 PM EST) Vitamin B12 422 200 - 900 pg/mL [facility] Comment:NORMAL 200-900 PG/ML INDETERMINATE 160-199 PG/ML DEFICIENT < 160 PG/ML Folate 8.0 > or = 4.0 ng/mL [facility] Comment:Reference Values:> o r = 4.0 ng/mL< 4.0 ng/mL suggests folate deficiency Methotrexate, aminopterin and folinic acid(leucovorin) are chemotherapeutic agents whose molecularstructures are similar to folate; therefore, the Architectfolate assay cannot be used for patients using these drugs. 08/17/2025 1:03 PM EST 08/17/2025 1:03 PM EST us Generic External Data Provider LAB BLOOD ORDERAB LES Final Result Performing Organization Address [facility] Co de Phone Number [facility] [address] [place] [phone] * TSH with Reflex to Free T4 (08/17/2025 1:03 PM EST) TSH reflex Free T4 3.02 0.32 - 4.0 uIU/mL [facility] 08/17/2025 1:03 PM EST 08/17/2025 1:03 PM EST us Generic External Data Provider LAB BLOOD ORDERAB LES Final Result Performing Organization Address City/[facility]/ZIP Co de Phone Number [facility] [address] [place] [phone] * CBC auto differential (08/17/2025 1:03 PM EST) White Blood Count 9.3 4.8 - 10.8 X10*3/uL [facility] Red Blood Count 5.60 4.60 - 5.80 X10*6/uL [facility] Hemoglobin 16.2 14.0 - 18.0 g/dl [facility] Hematocrit 47.5 42.0 - 52.0 % [facility] Mean Corpuscular Volume 84.8 80.0 - 98.0 fL [facility] Mean Corpuscular Hemoglobin 28.9 27.0 - 33.0 pg [facility] Mean Corpuscular HGB Conc 34.1 31.0 - 36.0 g/dl [facility] Red Cell Distribution Width 14.2 11.0 - 16.0 % [facility] Platelet Count 297 160 - 400 X10*3/uL [facility] Mean Platelet Volume 11.5 9.4 - 12.4 fL [facility] Neutrophils Percent Auto 52.6 45 - 73 % [facility] Imm Gran Pct Auto 0.2 0.0 - 0.4 % [facility] Lymphocytes Percent Auto 38.2 20 - 40 % [facility] Monocytes Percent Auto 7.0 2 - 11 % [facility] Eosinophils Percent Auto 1.6 0 - 4 % [facility] Basophils Percent Auto 0.4 0 - 2 % [facility] NRBC Pct Auto 0.0 0.0 - 0.2 /100WBC [facility] Neutrophils Absolute Auto 4.9 2.0 - 8.3 x10*3/uL [facility] Imm Gran Abs Auto 0.02 0.00 - 0.03 X10*3/uL [facility] Lymphocytes Absolute Auto 3.6 1.2 - 4.9 X10*3/uL [facility] Monocytes Absolute Auto 0.7 0.1 - 1.2 X10*3/uL [facility] Eosinophils Absolute Auto 0.2 0.0 - 0.4 X10*3/uL [facility] Basophils Absolute Auto 0.0 0.0 - 0.2 X10*3/uL [facility] NRBC Abs Auto 0.000 0.0 - 0.012 X10*3/uL [facility] 08/17/2025 1:03 PM EST 08/17/2025 1:03 PM EST Generic External Data Provider LAB BLOOD ORDERAB LES Final Result Performing Organization Address [facility] de Phone Number [facility] [address] [place] [phone] * (ABNORMAL) Iron And Total Iron Binding Capacity (08/17/2025 1:03 PM EST) Iron 137 45 - 160 mcg/dL [facility] Total Iron Binding Capacity 265 228 - 428 mcg/dL [facility] Percent Iron Saturation 52(H) 15 - 50 % [facility] Unsaturated Iron Binding 128 ug/dL [facility] 08/17/2025 1:03 PM EST 08/17/2025 1:03 PM EST Generic External Data Provider LAB BLOOD ORDERAB LES Final Result Performing Organization Address [facility] Phone Number [facility] [address] [place] [address] [phone] * (ABNORMAL) Insulin (08/17/2025 1:03 PM EST) Insulin 40(H) 2 - 29 uU/mL [facility] Comment:This test was perfor med using the Asterion chemiluminescentmethod. Values obtained from different assay methods cannot beused interchangeably. This insulin assay shows a possiblecross-reactivity with antibodies generated against insulin(immunoreactive insulin and some patients treated withbovine or porcine insulin). Insulin levels may be measuredlower in patients with insulin autoimmune syndrome orfamilial high pro-insulinemia. 08/17/2025 1:03 PM EST 08/17/2025 1:03 PM EST Generic External Data Provider LAB BLOOD ORDERAB LES Final Result Performing Organization Address [facility] Co de Phone Number [facility] [address] [place] [address] [phone] * (ABNORMAL) C-reactive Protein (08/17/2025 1:03 PM EST) C Reactive Protein 1.85(H) < or = 0.50 mg/dL [facility] 08/17/2025 1:03 PM EST 08/17/2025 1:03 PM EST Generic External Data Provider LAB BLOOD ORDERAB LES Final Result Performing Organization Address [facility] Phone Number [facility] [address] [place] [address] [phone] * (ABNORMAL) Hemoglobin A1c (08/17/2025 1:03 PM EST) Hemoglobin A1c 6.4(H) <6.0 % [facility] Comment:Hemoglobin A1C Refer ence Range Adults: 4.8 - 6.0 % Non diabetic: < 6.0 % Goal: < 7.0 %Additional Action Suggested: > 8.0 %Note: Hemoglobin A1c results are invalid for patients with abnormal amounts of HbF. Blood transfusions may impact the HbA1c concentration in the patient sample. Estimated Average Glucose 137 mg/dL [facility] Comment:eAG = Estimated ave rage glucose which is %A1C expressed asaverage glucose, using the formula of the [id number] Glucose study (ADAG), Diabetes Care, Vol.31,#8,Apr. 2007 08/17/2025 1:03 PM EST 08/17/2025 1:03 PM EST us Generic External Data Provider LAB BLOOD ORDERAB LES Final Result Performing Organization Address [facility] Co de Phone Number [facility] [address] [place] [address] [phone] * (ABNORMAL) Ferritin (08/17/2025 1:03 PM EST) Ferritin 387(H) 20 - 250 ng/mL [facility] 08/17/2025 1:03 PM EST 08/17/2025 1:03 PM EST Generic External Data Provider LAB BLOOD ORDERAB LES Final Result Performing Organization Address City/[facility]/ZIP Co de Phone Number [facility] [address] [place] [address] [phone] * (ABNORMAL) Lipid Panel, Standard (08/17/2025 1:03 PM EST) Triglycerides 166(H) <150 mg/dL [facility] Comment:Desirable Triglyceri de: less than 150 mg/dLBorderline High Triglyceride 150-199 mg/dLHigh Triglyceride: 200-499 mg/dLVery High Triglyceride: greater than or equal to 5OO mg/dL Cholesterol 132 <200 mg/dL [facility] Comment:Desirable Cholestero l: less than 200 mg/dLBorderline High Cholesterol: 200-239 mg/dLHigh Cholesterol: greater than 239 mg/dL LDL Cholesterol Calculated 68 <100 mg/dL [facility] Comment:Desirable LDL: less than 100 mg/dLNear Optimal/Above Optimal LDL: 110- 129 mg/dLBorderline High LDL: 130-159 mg/dLHigh LDL: 160-189 mg/dLVery High LDL: greater than or equal to 190 mg/dL HDL Cholesterol 31(L) >40 mg/dL [facility] Comment:Desirable HDL: great er than 40 mg/dL Note: This HDL assay may give artificially low results in patients with liver disease. 08/17/2025 1:03 PM EST 08/17/2025 1:03 PM EST us Generic External Data Provider LAB BLOOD ORDERAB LES Final Result Performing Organization Address City/[facility]/ZIP Co de Phone Number [facility] [address] [place] [address] [phone] * (ABNORMAL) Comprehensive Metabolic Panel (08/17/2025 1:03 PM EST) Sodium 139 135 - 145 mmol/L [facility] Potassium 3.7 3.3 - 5.1 mmol/L [facility] Chloride 104 96 - 108 mmol/L [facility] Carbon Dioxide 27 22 - 29 mmol/L [facility] Anion Gap 12 12 - 20 [facility] Urea Nitrogen (BUN) 15 9 - 16 mg/dL [facility] Creatinine, Serum 0.76 0.5 - 1.4 mg/dL [facility] Estimated Glomerular Filt Rate >60 [facility] Comment:Chronic Kidney Disea se: Estimated GFR < 60 mL/min/[id number] Kidney Disease: Estimated GFR < 15 mL/min/1.73m2 Glucose 117(H) 60 - 115 mg/dL [facility] Calcium 9.4 8.4 - 10.2 mg/dL [facility] Bilirubin, Total 0.6 0.0 - 1.0 mg/dL [facility] Aspartate Amino Transferase 32 5 - 37 U/L [facility] Alanine Aminotransferase 33 0 - 40 U/L [facility] Total Protein 7.6 6.5 - 8.0 g/dL [facility] Albumin Level 4.2 3.5 - 5.0 g/dL [facility] Alkaline Phosphatase 92 39 - 117 U/L [facility] 08/17/2025 1:03 PM EST 08/17/2025 1:03 PM EST us Generic External Data Provider LAB BLOOD ORDERAB LES Final Result [facility] [address] [place] [phone] [phone] * Albumin, Random Urine W/Creatinine (08/05/2025 1:41 PM EST) Creatinine, Urine 136.05 mg/dL [facility] Microalbumin Urine 11.0 mg/L [facility] Microalbum Creatinine Ratio Ur 8.0 <30 ug/mg cr [facility] Comment:Albumin/Creatinine R atio Reference Ranges: Normal: < 30 ug/mg creatinine Microalbuminuria: 30 - 300 ug/mg creatinineClinical Albuminuria: > 300 ug/mg creatinine Urine (Urine, Random) 08/05/2025 1:41 PM EST 08/05/2025 3:57 PM EST [facility] LAB URINE ORDERABLES Final Resu lt Performing Organization Address [facility] de Phone Number [facility] [address] [place] [address] [phone] * Hepatitis C Antibody with Reflex to HCV, RNA, Quantitative, Real-Time PCR (08/05/2025 1:41 PM EST) Only the most recent of2 resultswithin the time period is included. Hepatitis C Antibody Nonreactive Nonreactive [facility] Comment:Antibodies to HCV no t detected; does not exclude early acuteHCV infection. 08/05/2025 1:41 PM EST 08/05/2025 3:57 PM EST [facility] LAB BLOOD ORDERABLES Final Resu Performing Organization Address [facility] Phone Number [facility] [address] [place] [address] [phone] * RPR (Monitor) with Reflex to??Titer (08/05/2025 1:41 PM EST) Only the most recent of2 resultswithin the time period is included. RPR (Monitor) w/Refl Titer NON-REACTI VE NON-REACT ZENA [facility] Comment:THIS TEST WAS PERFOR MED AT:[employer] [place] [id number] SAVAGE MD Rapid Plasma Reagin Ab Titer TNP [facility] 08/05/2025 1:41 PM EST 08/05/2025 3:59 PM EST Brianaromeo Varela SUPPLY CRIB ATTENDANT LAB BLOOD ORDERABLES Final Resu lt [facility] [address] [place] [address] [phone] * HIV-1/2 Antigen and Antibodies, Fourth Generation, with Reflexes (08/05/2025 1:41 PM EST) HIV AB/AG Nonreactive Nonreactive [facility] Comment:HIV-1 p24 Ag and/or HIV-1/HIV-2 Ab not detected.A test result that is nonreactive does not exclude thepossibility of exposure to or infection with HIV-1 and/orHIV-2. Nonreactive results in this assay for individualswith prior exposure to HIV-1 and/or HIV-2 may be due toantigen and antibody levels that are below the limit ofdetection of this assay.The [employer] Axon HIV Ag/Ab Combo assay result andsupplemental assay results should be interpreted inconjunction with the patient's clinical presentation,history and other laboratory results. If the results areinconsistent with clinical evidence, additional testing issuggested to confirm the result. 08/05/2025 1:41 PM EST 08/05/2025 3:57 PM EST Briana Varela SUPPLY CRIB ATTENDANT LAB BLOOD ORDERABLES Final Resu lt Performing Organization Address City/[facility]/ZIP Co de Phone Number [facility] [address] [place] [phone] * POCT Rapid HIV Screening (08/05/2025 1:31 PM EST) Only the most recent of2 resultswithin the time period is included. Blood 08/05/2025 1:31 PM EST Narrative Shyann Eckert RN - 08/05/2025 1:31 PM EST Negative AB/AG Manju Lester MD POINT OF CARE LUCIO T ENTER/EDIT ORDERABLES Final Result * HIV-1 RNA, Quantitative, Real-Time PCR (06/01/2025 2:52 PM EDT) HIV RNA PCR Qn Copies NOT DETECTED NOT DETECTED copies/mL [facility] HIV RNA PCR Qn Log Copies NOT DETECTED NOT DETECTED [facility] Comment:Result Units: Log co pies/mLThis test was performed using Real-Time Polymerase ChainReaction.Reportable Range: 20 copies/mL to 10,000,000 copies/mL(1.30 log copies/mL to 7.00 log copies/mL).THIS TEST WAS PERFORMED AT:[employer] [place] [phone] SAVAGE MD 06/01/2025 2:52 PM EDT 06/01/2025 4:27 PM EDT [facility] LAB BLOOD ORDERABLES Final Resu lt Performing Organization Address [facility] de Phone Number [facility] [address] [place] [address] [phone] * Hepatic Function Panel (06/01/2025 2:52 PM EDT) Pathologist [facility] Bilirubin, Total 0.5 0.0 - 1.0 mg/dL [facility] Bilirubin, Direct 0.3 0.0 - 0.5 mg/dL [facility] Aspartate Amino Transferase 35 5 - 37 U/L [facility] Alanine Aminotransferase 37 0 - 40 U/L [facility] Total Protein 7.1 6.5 - 8.0 g/dL [facility] Albumin Level 3.9 3.5 - 5.0 g/dL [facility] Alkaline Phosphatase 111 39 - 117 U/L [facility] 06/01/2025 2:52 PM EDT 06/01/2025 4:22 PM EDT [facility] LAB BLOOD ORDERABLES Final Resu lt Performing Organization Address [facility]/State/ZIP Co de Phone Number [facility] [address] [place] [address] [phone] * (ABNORMAL) Basic Metabolic Panel (06/01/2025 2:52 PM EDT) Pathologist [facility] Sodium 140 135 - 145 mmol/L [facility] Potassium 3.8 3.3 - 5.1 mmol/L [facility] Chloride 107 96 - 108 mmol/L [facility] Carbon Dioxide 26 22 - 29 mmol/L [facility] Anion Gap 11(L) 12 - 20 [facility] Urea Nitrogen (BUN) 13 9 - 16 mg/dL [facility] Creatinine, Serum 0.89 0.5 - 1.4 mg/dL [facility] Estimated Glomerular Filt Rate >60 [facility] Comment:Chronic Kidney Disea se: Estimated GFR < 60 mL/min/[id number] Kidney Disease: Estimated GFR < 15 mL/min/1.73m2 Glucose 280(H) 60 - 115 mg/dL [facility] Calcium 8.5 8.4 - 10.2 mg/dL [facility] Blood Venous blood specimen / Unknown 06/01/2025 2:52 PM EDT 06/01/2025 4:22 PM EDT Briana Varela SUPPLY CRIB ATTENDANT LAB BLOOD ORDERABLES Final Resu lt [facility] [address] [place] [phone] * Chlamydia/Gonorrhea, Rectal Swab ([facility]) (06/01/2025) Chlamydia Rectal Swab Negative Negative, Indeterminate, None Detected, Invalid, Specimen unsatisfactory for evaluation, 2+ Gonorrhea Rectal Swab Negative Negative, Indeterminate, None Detected, Invalid, Specimen unsatisfactory for evaluation, 2+ Swab 06/01/2025 Historical Provider LAB MICROBIOLOGY - GENERA L ORDERABLES Final Result * Chlamydia/Gonorrhea Throat Swab ([facility]) (06/01/2025) Chlamydia Throat Swab Negative Gonorrhea Throat Swab Negative Swab 06/01/2025 Historical Provider LAB MICROBIOLOGY - GENERA L ORDERABLES Final Result * Chlamydia/Gonorrhea, Urine ([facility]) (06/01/2025) Chlamydia, Urine Negative Negative, Indeterminate, None Detected, Invalid, Specimen unsatisfactory for evaluation, Weakly Positive, 2+ Gonorrhea, Urine Negative Negative, Indeterminate, None Detected, Invalid, Specimen unsatisfactory for evaluation, Weakly Positive, 2+ Urine 06/01/2025 Historical Provider LAB URINE ORDERABLES Briseida l Result from Last 3 Months Additional Health Concerns Active Problems Noted Date Diagnosed Date Help patients manage their type 2 diabetes 07/14 Weekly blood pressure task 07/14/2025 Help patients manage their type 2 diabetes 07/14 Patient has chronic kidney disease 07/14/2025 Weekly blood pressure task 07/14/2025 Patient has chronic kidney disease 07/14/2025 Weekly blood pressure task 07/26/2025 Weekly blood pressure task 07/26/2025 Patient has chronic kidney disease 07/26/2025 Patient has chronic kidney disease 07/26/2025 Weekly blood pressure task 07/26/2025 Weekly blood pressure task 07/26/2025 Patient has chronic kidney disease 07/26/2025 Patient has chronic kidney disease 07/26/2025 Weekly blood pressure task 07/27/2025 Weekly blood pressure task 07/27/2025 Patient has chronic kidney disease 07/27/2025 Patient has chronic kidney disease 07/27/2025 Weekly blood pressure task 07/27/2025 Weekly blood pressure task 07/27/2025 Patient has chronic kidney disease 07/27/2025 Patient has chronic kidney disease 07/27/2025 Weekly blood pressure task 07/27/2025 Weekly blood pressure task 07/27/2025 Patient has chronic kidney disease 07/27/2025 Patient has chronic kidney disease 07/27/2025 Weekly blood pressure task 07/27/2025 Weekly blood pressure task 07/27/2025 Patient has chronic kidney disease 07/27/2025 Patient has chronic kidney disease 07/27/2025 Weekly blood pressure task 07/27/2025 Weekly blood pressure task 07/27/2025 Patient has chronic kidney disease 07/27/2025 Patient has chronic kidney disease 07/27/2025 Weekly blood pressure task 08/02/2025 Weekly blood pressure task 08/02/2025 Patient has chronic kidney disease 08/02/2025 Patient has chronic kidney disease 08/02/2025 Weekly blood pressure task 08/04/2025 Weekly blood pressure task 08/04/2025 Patient has chronic kidney disease 08/04/2025 Patient has chronic kidney disease 08/04/2025 Weekly blood pressure task 08/05/2025 Weekly blood pressure task 08/05/2025 Patient has chronic kidney disease 08/05/2025 Patient has chronic kidney disease 08/05/2025 Weekly blood pressure task 08/05/2025 Weekly blood pressure task 08/05/2025 Patient has chronic kidney disease 08/05/2025 Patient has chronic kidney disease 08/05/2025 Weekly blood pressure task 08/09/2025 Weekly blood pressure task 08/09/2025 Patient has chronic kidney disease 08/09/2025 Patient has chronic kidney disease 08/09/2025 Weekly blood pressure task 08/13/2025 Weekly blood pressure task 08/13/2025 Patient has chronic kidney disease 08/13/2025 Patient has chronic kidney disease 08/13/2025 Insurance [facility] , [facility] [address] [place] [address] Care Teams Daycare Director Relationship Specialty Start Date End Date Briana Varela NP [address] [place] [phone] PCP - General Family Medicine 06/11/23
--- OUTSIDE RECORDS SUMMARY | 2025-08-17 16:37 | XMS_ITS | Encounter Summary ---
Author Organization [employer] Address [address] [place] [address] [address] [place] [address] Care Team Providers Care Rayon Winder Name Role Phone Briana Varela NP Primary Care Provider [phone] Reason for Visit * Reason Onset Date Comments Prior Authorization 07/06/2024 Encounter Details Date Type Department Care Team ([facility] Contact Info) Description 07/06/[address] [facility] [address] [place] [address] Briana Varela NP [address] [place] [address] Prior Authorization Social History Tobacco Use Types [...] Description 09/17/2025 10:15 AM EST Office Visit [facility] [address] [place] [address] Briana Varela NP [address] [place] [address] 10/06/2025 10:00 AM EST Clinical Support [facility] [address] [place] [address] Shyann Eckert, [employer] [address] [place] [address] documented as of this encounter Visit Diagnoses Not on filedocumented in this encounter Additional Health Concerns Assessment Noted Time PHQ-9 Depression Total Score: 1 12/18/19 24 3:08 PM EDT documented as of this encounter Care Teams Rayon Winder Relationship Specialty Start Date End Date Briana Varela NP [address] [place] [phone] PCP - General Family Medicine 06/11/23 documented as of this encounter
--- OUTSIDE RECORDS SUMMARY | 2025-08-17 16:37 | XMS_ITS | Encounter Summary ---
Author Organization [employer] Address [address] [facility] [address] [place] [address] Care Team Providers Care Accounts Receivable Coordinator Name Role Phone Briana Varela NP Primary Care Provider [phone] Reason for Visit * Reason Onset Date Comments Med Refill 08/13/2024 Encounter Details Date Type Department Care Team ([facility] st Contact Info) Description 08/13/2024 Refill [facility] [address] [place] [address] Briana Varela NP [address] [place] [address] Type 2 diabetes mellitus without complication, without long-term current use of insulin ([facility]) Social History Tobacco Use Types Packs/Day [...] Description 09/17/2025 10:15 AM EST Office Visit [address] [address] Briana Varela NP [address] [place] [address] 10/06/2025 10:00 AM EST Clinical Support [address] [address] Shyann Eckert, FELECIA [address] [place] [phone] documented as of this encounter Visit Diagnoses Diagnosis Type 2 diabetes mellitus without complication, without long-term current use of insulin (HCC) documented in this encounter Additional Health Concerns Assessment Noted Time PHQ-9 Depression Total Score: 1 12/18/19 24 3:08 PM EDT documented as of this encounter Care Teams Accounts Receivable Coordinator Relationship Specialty Start Date End Date Briana Varela NP [address] [place] [phone] PCP - General Family Medicine 06/11/23 documented as of this encounter
--- OUTSIDE RECORDS SUMMARY | 2025-08-17 16:37 | XMS_ITS | Encounter Summary ---
Author Organization [employer] Address [address] [place] [address] [address] [place] [address] Care Team Providers Care Staff Development Educator Name Role Phone Briana Varela NP Primary Care Provider [phone] Encounter Details Date Type Department Care Team ([facility] st Contact Info) Description 07/27/2025 Orders Only [facility] [address] [place] [address] Briana Varela NP [address] [place] [address] Morbid obesity (CMS/HCC) (HCC) (Primary Dx); Type 2 diabetes mellitus without complication, without long-term current use of insulin (HCC) Social History Tobacco Use Types Packs/Day Years [...] Description 09/17/2025 10:15 AM EST Office Visit [facility] [address] [place] [phone] Briana Varela NP [address] [place] [phone] 10/06/2025 10:00 AM EST Clinical Support [address] [address] Shyann Eckert, [employer] [address] [place] [address] documented as of this encounter Goals Goal Patient Goal Type Associated Problems Recent Progress Patient-Stated? Author Help patients manage their type 2 diabetes Care Plan Help patients manage their type 2 diabetes No Milo, Bambi Weekly blood pressure task Care Plan Weekly blood pressure task No Milo Bambi Help patients manage their type 2 diabetes Care Plan Help patients manage their type 2 diabetes No Milo, Bambi Patient has chronic kidney disease Care Plan Patient has chronic kidney disease No Milo, Bambi Weekly blood pressure task Care Plan Weekly blood pressure task No Milo Bambi Patient has chronic kidney disease Care Plan Patient has chronic kidney disease No Ynes Pedrazailet Weekly blood pressure task Care Plan Weekly blood pressure task No Lata Singh RN Weekly blood pressure task Care Plan Weekly blood pressure task No Lata Singh RN Patient has chronic [...] chronic kidney disease No Briana Varela NP documented as of this encounter Visit Diagnoses Diagnosis Morbid obesity (CMS/HCC) (HCC)- Primary Morbid obesity Type 2 diabetes mellitus without complication, without long-term current use of insulin (HCC) documented in this encounter Additional Health Concerns Active Problems Noted Date [...] 07/27/2025 Patient has chronic kidney disease 07/27/2025 Assessment Noted Time PHQ-9 Depression Total Score: 0 01/14/20 4:08 PM EDT documented as of this encounter Care Teams Staff Development Educator Relationship Specialty Start Date End Date Briana Varela NP [address] [place] [phone] PCP - General Family Medicine 06/11/23 documented as of this encounter
--- OUTSIDE RECORDS SUMMARY | 2025-08-17 16:37 | XMS_ITS | Encounter Summary ---
Author Organization [employer] Address [address] [place] [address] 7t [place] [address] Care Team Providers Care Surveillance System Monitor Name Role Phone Marioana paula Briana CARLEE Primary Care Provider [phone] Encounter Details Date Type Department Care Team ([facility] Contact Info) Description 08/17/2025 Orders Only GENERIC EXTERNAL DATA DEPARTMENT Provider, Generic External Data Social History Tobacco Use Types Packs/Day Years [...] Description 09/17/2025 10:15 AM EST Office Visit [address] [address] Briana Varela NP [address] [place] [address] 10/06/2025 10:00 AM EST Clinical Support [address] [address] Shyann Eckert, FELECIA [address] [place] [address] documented as of this encounter Goals Goal Patient Goal Type Associated Problems Recent Progress Patient-Stated? Author Help patients manage their type 2 diabetes Care Plan Help patients manage their type 2 diabetes Bambi Bravo Weekly blood pressure task Care Plan Weekly [...] Care Plan Weekly blood pressure task No Kal Rubinsenia Weekly blood pressure task Care Plan Weekly blood pressure task No Scottie Sherrie Patient has chronic kidney [...] chronic kidney disease No Mary Santiago [place] documented as of this encounter Procedures Procedure Name Priority Date/Time Associated Diagnosis Comments XR CHEST 2 VIEWS Routine 08/17/2025 1:35 PM EST VITAMIN D,25-OH,TOTAL,IA Routine 08/17/2025 1:03 PM EST VITAMIN B12/FOLATE, SERUM PANEL Routine 08/17/2025 1:03 PM EST TSH W/REFLEX TO FT4 Routine 08/17/2025 1 :03 PM EST CBC WITH AUTO DIFFERENTIAL Routine 08/17/2025 1:03 PM EST IRON AND TOTAL IRON BINDING CAPACITY Routine 08/17/2025 1:03 PM EST INSULIN Routine 08/17/2025 1:03 PM EST C-REACTIVE PROTEIN Routine 08/17/2025 1: 03 PM EST HEMOGLOBIN A1C Routine 08/17/2025 1:03 PM EST FERRITIN Routine 08/17/2025 1:03 PM EST LIPID PANEL, STANDARD Routine 08/17/2025 1:03 PM EST COMPREHENSIVE METABOLIC PANEL Routine 08/17/2025 1:03 PM EST documented in this encounter Results * XR Chest 2 Views (08/17/2025 1:35 PM EST) Anatomical Region Laterality Modality Chest Radiographic Jennifer ging 08/17/2025 1:35 PM EST Narrative 08/17/2025 1:58 PM EST [address] [address] XRay Report Signed Patient: Alessandro Albright MR# : [id number] : 1990 Acct:[id number] Age/Sex: 34 / M ADM Date: 08/17/25 Loc: [facility] Attending Dr: Isaias Roach MD Ordering Physician: Isaias Roach MD Date of Service: 08/17/25 Procedure(s): XR chest 2V Accession Number(s): [id number] cc: Briana Varela; Isaias Roach MD Reason [...] 08/17/25 1355 DD/ 1335 TD/TT: 08/17/25 1338 Toddler Lead Teacher: Procedure Note Donotuseinterpreter, Image - 08/17/[address] [address] XRay Report Signed Patient: Alessandro AlbrightMR# : [id number] : 1990Acct:[id number] Age/Sex: 34 / MADM Date: 08/17/25 Loc: [facility] Attending Dr: Isaias Roach MD Ordering Physician: Isaias Roach MD Date of Service: 08/17/25 Procedure(s): XR chest 2V Accession Number(s): [id number] cc: Briana Varela; Isaias Roach MD Reason [...] 08/17/25 1355 DD/ 1335 TD/TT: 08/17/25 1338 Toddler Lead Teacher: [facility] External Provider IMG XR PROCEDURES Edited Result - Final * Vitamin B12 (Cobalamin) and Folate Panel, Serum (08/17/2025 1:03 PM EST) Vitamin B12 422 200 - 900 pg/mL [facility] Comment:NORMAL 200-900 PG/ML INDETERMINATE 160-199 PG/ML DEFICIENT < 160 PG/ML Folate 8.0 > or = 4.0 ng/mL [facility] Comment:Reference Values:> o r = 4.0 ng/mL< 4.0 ng/mL suggests folate deficiency Methotrexate, aminopterin and folinic acid(leucovorin) are chemotherapeutic agents whose molecularstructures are similar to folate; therefore, the Architectfolate assay cannot be used for patients using these drugs. 08/17/2025 1:03 PM EST 08/17/2025 1:03 PM EST Generic External Data Provider LAB BLOOD ORDERAB LES Final Result [facility] [address] [place] [address] [phone] * (ABNORMAL) Insulin (08/17/2025 1:03 PM EST) Insulin 40(H) 2 - 29 uU/mL [facility] Comment:This test was perfor med using the [employer] chemiluminescentmethod. Values obtained from different assay methods [...] ORDERAB LES Final Result Performing Organization Address City/[facility]/ZIP Co de Phone Number [facility] [address] [place] [phone] * TSH with Reflex to Free T4 (08/17/2025 1:03 PM EST) TSH reflex Free T4 3.02 0.32 - 4.0 uIU/mL [facility] 08/17/2025 1:03 PM EST 08/17/2025 1:03 PM EST Generic External Data Provider LAB BLOOD ORDERAB LES Final Result Performing Organization Address [facility]/ZIP Co de Phone Number [facility] [address] [place] [phone] * (ABNORMAL) Vitamin D, 25-Hydroxy, Total, Immunoassay (08/17/2025 1:03 PM EST) Vitamin D 25-OH Total 10.0(L) >30 ng/mL [facility] Comment: Health Based Reference Values*< 20 ng/mL Hrplheydw12-72 ng/mL Insufficient> 30 ng/mL Sufficient*Charisse ZHANG. N [...] ORDERAB LES Final Result Performing Organization Address [facility] Co de Phone Number [facility] [address] [place] [phone] * (ABNORMAL) Ferritin (08/17/2025 1:03 PM EST) Ferritin 387(H) 20 - 250 ng/mL [facility] 08/17/2025 1:03 PM EST 08/17/2025 1:03 PM EST Generic External Data Provider LAB BLOOD ORDERAB LES Final Result Performing Organization Address [facility] Co de Phone Number [facility] [address] [place] [phone] * (ABNORMAL) Lipid Panel, Standard (08/17/2025 1:03 PM EST) Triglycerides 166(H) <150 mg/dL [facility] Comment:Desirable Triglyceri de: less than 150 mg/dLBorderline High Triglyceride 150-199 mg/dLHigh Triglyceride: 200-499 mg/dLVery High Triglyceride: greater than or equal to 5OO mg/dL Cholesterol 132 <200 mg/dL [facility] Comment:Desirable Cholestero l: less than 200 mg/dLBorderline High Cholesterol: 200-239 mg/dLHigh Cholesterol: greater than 239 mg/dL LDL Cholesterol Calculated 68 <100 mg/dL [facility] Comment:Desirable LDL: less than 100 mg/dLNear Optimal/Above Optimal LDL: 110- 129 mg/dLBorderline High LDL: 130-159 mg/dLHigh LDL: 160-189 mg/dLVery High LDL: greater than or equal to 190 mg/dL HDL Cholesterol 31(L) >40 mg/dL [facility] Comment:Desirable HDL: great er than 40 mg/dL Note: This HDL assay may give artificially low results in patients with liver disease. 08/17/2025 1:03 PM EST 08/17/2025 1:03 PM EST Generic External Data Provider LAB BLOOD ORDERAB LES Final Result Performing Organization Address [facility] de Phone Number [facility] [address] [place] [phone] * (ABNORMAL) C-reactive Protein (08/17/2025 1:03 PM EST) C Reactive Protein 1.85(H) < or = 0.50 mg/dL [facility] 08/17/2025 1:03 PM EST 08/17/2025 1:03 PM EST Generic External Data Provider LAB BLOOD ORDERAB LES Final Result Performing Organization Address [facility] Co de Phone Number [facility] [address] [place] [phone] * (ABNORMAL) Iron And Total Iron Binding Capacity (08/17/2025 1:03 PM EST) Iron 137 45 - 160 mcg/dL [facility] Total Iron Binding Capacity 265 228 - 428 mcg/dL [facility] Percent Iron Saturation 52(H) 15 - 50 % [facility] Unsaturated Iron Binding 128 ug/dL [facility] 08/17/2025 1:03 PM EST 08/17/2025 1:03 PM EST us Generic External Data Provider LAB BLOOD ORDERAB LES Final Result [facility] [address] [place] [phone] * (ABNORMAL) Comprehensive Metabolic Panel (08/17/2025 1:03 PM EST) Sodium 139 135 - 145 mmol/L [facility] Potassium 3.7 3.3 - 5.1 mmol/L [facility] Chloride 104 96 - 108 mmol/L [facility] Carbon Dioxide 27 22 - 29 mmol/L [facility] Anion Gap 12 12 - 20 [facility] Urea Nitrogen (BUN) 15 9 - 16 mg/dL [facility] Creatinine, Serum 0.76 0.5 - 1.4 mg/dL [facility] Estimated Glomerular Filt Rate >60 [facility] Comment:Chronic Kidney Disea se: Estimated GFR < 60 mL/min/1.51d8Goyysw Kidney Disease: Estimated GFR < 15 mL/min/1.73m2 Glucose 117(H) 60 - 115 mg/dL [facility] Calcium 9.4 8.4 - 10.2 mg/dL [facility] Bilirubin, Total 0.6 0.0 - 1.0 mg/dL [facility] Aspartate Amino Transferase 32 5 - 37 U/L [facility] Alanine Aminotransferase 33 0 - 40 U/L [facility] Total Protein 7.6 6.5 - 8.0 g/dL [facility] Albumin Level 4.2 3.5 - 5.0 g/dL [facility] Alkaline Phosphatase 92 39 - 117 U/L [facility] 08/17/2025 1:03 PM EST 08/17/2025 1:03 PM EST us Generic External Data Provider LAB BLOOD ORDERAB LES Final Result Performing Organization Address [facility]/ZIP Co de Phone Number [facility] [address] [place] [phone] * (ABNORMAL) Hemoglobin A1c (08/17/2025 1:03 PM EST) Hemoglobin A1c 6.4(H) <6.0 % [facility] Comment:Hemoglobin A1C Refer ence Range Adults: 4.8 - 6.0 % Non diabetic: < 6.0 % Goal: < 7.0 %Additional Action Suggested: > 8.0 %Note: Hemoglobin A1c results are invalid for patients with abnormal amounts of HbF. Blood transfusions may impact the HbA1c concentration in the patient sample. Estimated Average Glucose 137 mg/dL [facility] Comment:eAG = Estimated ave rage glucose which is %A1C expressed asaverage glucose, using the formula of the P3P-IdtqelhHmzyhgb Glucose study (ADAG), Diabetes Care, Vol.31,#8,Apr. 2007 08/17/2025 1:03 PM EST 08/17/2025 1:03 PM EST us Generic External Data Provider LAB BLOOD ORDERAB LES Final Result Performing Organization Address [facility] Co de Phone Number [facility] [address] [place] [phone] * CBC auto differential (08/17/2025 1:03 PM EST) Pathologist [facility] White Blood Count 9.3 4.8 - 10.8 X10*3/uL [facility] Red Blood Count 5.60 4.60 - 5.80 X10*6/uL [facility] Hemoglobin 16.2 14.0 - 18.0 g/dl [facility] Hematocrit 47.5 42.0 - 52.0 % [facility] Mean Corpuscular Volume 84.8 80.0 - 98.0 fL [facility] Mean Corpuscular Hemoglobin 28.9 27.0 - 33.0 pg [facility] Mean Corpuscular HGB Conc 34.1 31.0 - 36.0 g/dl [facility] Red Cell Distribution Width 14.2 11.0 - 16.0 % [facility] Platelet Count 297 160 - 400 X10*3/uL [facility] Mean Platelet Volume 11.5 9.4 - 12.4 fL [facility] Neutrophils Percent Auto 52.6 45 - 73 % [facility] Imm Gran Pct Auto 0.2 0.0 - 0.4 % [facility] Lymphocytes Percent Auto 38.2 20 - 40 % [facility] Monocytes Percent Auto 7.0 2 - 11 % [facility] Eosinophils Percent Auto 1.6 0 - 4 % [facility] Basophils Percent Auto 0.4 0 - 2 % [facility] NRBC Pct Auto 0.0 0.0 - 0.2 /100WBC [facility] Neutrophils Absolute Auto 4.9 2.0 - 8.3 x10*3/uL [facility] Imm Gran Abs Auto 0.02 0.00 - 0.03 X10*3/uL [facility] Lymphocytes Absolute Auto 3.6 1.2 - 4.9 X10*3/uL [facility] Monocytes Absolute Auto 0.7 0.1 - 1.2 X10*3/uL [facility] Eosinophils Absolute Auto 0.2 0.0 - 0.4 X10*3/uL [facility] Basophils Absolute Auto 0.0 0.0 - 0.2 X10*3/uL [facility] NRBC Abs Auto 0.000 0.0 - 0.012 X10*3/uL [facility] 08/17/2025 1:03 PM EST 08/17/2025 1:03 PM EST us Generic External Data Provider LAB BLOOD ORDERAB LES Final Result [facility] [address] [place] [phone] documented in this encounter Visit Diagnoses Not on filedocumented in this encounter Additional Health Concerns Active [...] 08/13/2025 Patient has chronic kidney disease 08/13/2025 Assessment Noted Time PHQ-9 Depression Total Score: 0 01/14/20 25 4:08 PM EDT documented as of this encounter Care Teams Surveillance System Monitor Relationship Specialty Start Date End Date Briana Varela NP [address] [place] [phone] PCP - General Family Medicine 06/11/23 documented as of this encounter
--- OUTSIDE RECORDS SUMMARY | 2025-08-17 16:37 | XMS_ITS | Encounter Summary ---
Author Organization [employer] Address [address] [place] [address] 7t [place] [address] Care Team Providers Care Lawn Care Worker Name Role Phone Briana Varela NP Primary Care Provider [phone] Reason for Visit * Reason Onset Date Comments Med Refill 10/09/2024 Encounter Details Date Type Department Care Team ([facility] st Contact Info) Description 10/09/2024 Refill [facility] [address] [place] [address] Briana Varela NP [address] [place] [address] Type 2 diabetes mellitus without complication, without long-term current use of insulin (CMS/[facility]); Burning sensation of lower extremity; Pre-diabetes Social [...] Description 09/17/2025 10:15 AM EST Office Visit [facility] [address] [place] [address] Briana Varela NP [address] [place] [address] 10/06/2025 10:00 AM EST Clinical Support [facility] [address] [place] [address] Shyann Eckert RN [address] [place] [address] documented as of this encounter Visit Diagnoses Diagnosis Type 2 diabetes mellitus without complication, without long-term current use of insulin (HCC) Burning sensation of lower extremity Pre-diabetes Other abnormal glucose documented in this encounter Additional Health Concerns Assessment Noted Time PHQ-9 Depression Total Score: 1 12/18/19 24 3:08 PM EDT documented as of this encounter Care Teams Lawn Care Worker Relationship Specialty Start Date End Date Briana Varela NP [address] [place] [address] PCP - General Family Medicine 06/11/23 documented as of this encounter
--- OUTSIDE RECORDS SUMMARY | 2025-08-17 16:37 | XMS_ITS | Encounter Summary ---
Author Organization [employer] Address [address] [place] [address] [address], [place] [address] Care Team Providers Care Embedded Software Programmer Name Role Phone Jacklyn Mercado ROOM WORKER Primary Care Provider Briana Padilla NP Primary Care Provider [phone] Encounter Details Date Type Department Care Team (Late Contact Info) Description 10/01/2022 Orders Only [facility] [address] [place] [address] Ailyn Arshad LPN Social History Tobacco Use [...] Encounters Date Type Department Care Team (Late Contact Info) Description 09/17/2025 10:15 AM EST Office Visit [address] [address] Briana Varela NP [address] [place] [address] 10/06/2025 10:00 AM EST Clinical Support [address] [address] Shyann Eckert, FELECIA [address] [place] [address] documented as of this encounter Visit Diagnoses Not on filedocumented in this encounter Care Teams Embedded Software Programmer Relationship Specialty Start Date End Date Jacklyn Mercado FNP PCP - General Family Medicine 10/24/21 06/10/23 Briana Varela NP [address] [place] [address] PCP - General Family Medicine 06/11/23 documented as of this encounter
--- OUTSIDE RECORDS SUMMARY | 2025-08-17 16:37 | XMS_ITS | Encounter Summary ---
Author Organization [employer] Address [address] [place] [address] 7 [place] [address] Care Team Providers Care Author Agent Name Role Phone Briana Varela NP Primary Care Provider [phone] Reason for Visit * Reason Onset Date Comments Med Refill 05/21/2024 Encounter Details Date Type Department Care Team ([facility] st Contact Info) Description 05/21/2024 Refill [facility] [address] [place] [address] Briana Varela NP [address] [place] [address] Burning sensation of lower extremity; On pre-exposure [...] Description 09/17/2025 10:15 AM EST Office Visit [address] [address] Briana Varela NP [address] [place] [address] 10/06/2025 10:00 AM EST Clinical Support [facility] [address] [place] [address] Shyann Eckert, FELECIA [address] [place] [address] documented as of this encounter Visit Diagnoses Diagnosis Burning sensation of lower extremity On pre-exposure prophylaxis for HIV Essential hypertension Unspecified essential hypertension Pre-diabetes Other abnormal glucose documented in this encounter Additional Health Concerns Assessment Noted Time PHQ-9 Depression Total Score: 1 12/18/19 24 3:08 PM EDT documented as of this encounter Care Teams Author Agent Relationship Specialty Start Date End Date Briana Varela NP [address] [place] [address] PCP - General Family Medicine 06/11/23 documented as of this encounter
--- OUTSIDE RECORDS SUMMARY | 2025-08-17 16:37 | XMS_ITS | Encounter Summary ---
Author Organization [employer] Address [address] [place] [address] [address] [place] [address] Care Team Providers Care Equipment Records Supervisor Name Role Phone Briana Varela NP Primary Care Provider [phone] Reason for Visit * Reason Onset Date Comments Med Refill 09/30/2024 Encounter Details Date Type Department Care Team ([facility] st Contact Info) Description 09/30/2024 Refill [facility] [address] [place] [address] Briana Varela NP [address] [place] [address] Type 2 diabetes mellitus without complication, without long-term current use of insulin ([facility]) Social History Tobacco Use Types [...] Description 09/17/2025 10:15 AM EST Office Visit [address] [address] Briana Varela NP [address] [place] [address] 10/06/2025 10:00 AM EST Clinical Support [address] [address] Shyann Eckert, FELECIA [address] [place] [address] documented as of this encounter Visit Diagnoses Diagnosis Type 2 diabetes mellitus without complication, without long-term current use of insulin (HCC) documented in this encounter Additional Health Concerns Assessment Noted Time PHQ-9 Depression Total Score: 1 12/18/19 24 3:08 PM EDT documented as of this encounter Care Teams Equipment Records Supervisor Relationship Specialty Start Date End Date Briana Varela NP [address] [place] [address] PCP - General Family Medicine 06/11/23 documented as of this encounter
--- OUTSIDE RECORDS SUMMARY | 2025-08-17 16:37 | XMS_ITS | Encounter Summary ---
Author Organization [employer] Address [address] [facility] [address]t [place] [address] Care Team Providers Care Signwriter Name Role Phone Briana Varela NP Primary Care Provider [phone] Reason for Visit * Reason Onset Date Comments Med Refill 09/28/2024 Encounter Details Date Type Department Care Team ([facility] st Contact Info) Description 09/28/2024 Refill [facility] [address] [place] [address] Briana Varela NP [address] [place] [address] Type 2 diabetes mellitus without complication, without long-term current use of insulin ([facility]) Social History [...] Description 09/17/2025 10:15 AM EST Office Visit [address] [address] Briana Varela NP [address] [place] [address] 10/06/2025 10:00 AM EST Clinical Support [address] [address] Shyann Eckert, FELECIA [address] [place] [address] documented as of this encounter Visit Diagnoses Diagnosis Type 2 diabetes mellitus without complication, without long-term current use of insulin (HCC) documented in this encounter Additional Health Concerns Assessment Noted Time PHQ-9 Depression Total Score: 1 12/18/19 24 3:08 PM EDT documented as of this encounter Care Teams Signwriter Relationship Specialty Start Date End Date Briana Varela NP [address] [place] [address] PCP - General Family Medicine 06/11/23 documented as of this encounter
--- OUTSIDE RECORDS SUMMARY | 2025-08-17 16:37 | XMS_ITS | Encounter Summary ---
Author Organization [employer] Address [address] [facility] [address]t [place] [address] Care Team Providers Care Finishing And Shipping Supervisor Name Role Phone Briana Varela NP Primary Care Provider [phone] Encounter Details Date Type Department Care Team ([facility] st Contact Info) Description 08/09/2025 Results Follow-Up [facility] [address] [place] [address] Briana Varela NP [address] [place] [address] Hepatitis C Antibody with Reflex to HCV, RNA, Quantitative, Real-Time PCR, HIV-1/2 Antigen and Antibodies, Fourth Generation, with Reflexes, RPR (Monitor) with Reflex to Titer Social History Tobacco Use Types Packs/Day Years [...] Description 09/17/2025 10:15 AM EST Office Visit [facility] [address] [place] [address] Briana Varela NP [address] [place] [address] 10/06/2025 10:00 AM EST Clinical Support [facility] [address] [place] [address] Shyann Eckert, FELECIA [address] [place] [address] documented as of this encounter Goals Goal Patient Goal Type Associated Problems Recent Progress Patient-Stated? Author Help patients manage their type 2 diabetes Care Plan Help patients manage their type 2 diabetes No Ynes Pedrazailet Weekly blood pressure task Care Plan Weekly blood pressure task No Milo Bambi Help patients manage their type 2 diabetes Care Plan Help patients manage their type 2 diabetes No MiloYnes reedilet Patient has chronic kidney disease Care Plan Patient has chronic kidney disease No Ynes Pedrazailet Weekly blood pressure task Care Plan Weekly blood pressure task No Milo, Bambi Patient has chronic kidney [...] Plan Weekly blood pressure task No Shyann Eckert, FELECIA Patient has chronic kidney disease Care Plan Patient has chronic kidney disease No Shyann Eckert RN Patient has chronic kidney disease Care Plan Patient has chronic kidney disease No Shyann Eckert, FELECIA Weekly blood pressure task Care Plan Weekly [...] 08/09/2025 Patient has chronic kidney disease 08/09/2025 Assessment Noted Time PHQ-9 Depression Total Score: 0 01/14/20 25 4:08 PM EDT documented as of this encounter Care Teams Finishing And Shipping Supervisor Relationship Specialty Start Date End Date Briana Varela NP [address] [place] [address] PCP - General Family Medicine 06/11/23 documented as of this encounter
--- OUTSIDE RECORDS SUMMARY | 2025-08-17 16:37 | XMS_ITS | Encounter Summary ---
Author Organization [email or web address] Address [address] [place] [address] 7 [place] [address] Care Team Providers Care Sign Manufacturer Name Role Phone Briana Varela NP Primary Care Provider [phone] Reason for Visit * Reason Onset Date Comments CHARTPREP 08/13/2025 Encounter Details Date Type Department Care Team ([facility] Contact Info) Description 08/13/2025 Telephone [facility] [address] [place] [address] Briana Varela NP [address] [place] [address] CHARTPREP Social History Tobacco Use Types Packs/Day Years [...] encounter Miscellaneous Notes * Telephone Encounter - Mary Santiago MA - 08/13/2025 2:10 PM EST Chart Prep Labs: done Images: done Referrals: complete Vaccines due: Covid, Flu, and HPV Screenings: eye exam, family planning Overdue care gaps: Glucose documented in this encounter Plan of Treatment Upcoming Encounters Date Type Department Care Team (Late st Contact Info) Description 09/17/2025 10:15 AM EST Office Visit [address] [address] Briana Varela NP [address] [place] [address] 10/06/2025 10:00 AM EST Clinical Support [facility] [address] [place] [address] Shyann Eckert, FELECIA [address] [place] [address] documented as of this encounter Goals Goal Patient Goal Type Associated Problems Recent Progress Patient-Stated? Author Help patients manage their type 2 diabetes Care Plan Help patients manage their type 2 diabetes No Bambi Pedraza Weekly blood pressure task Care Plan Weekly blood pressure task No Ynes Pedrazailet Help patients manage their type 2 diabetes Care Plan Help patients manage their type 2 diabetes No Ynes Pedrazailet Patient has chronic kidney disease Care Plan Patient has chronic kidney disease No Ynes Pedrzaailet Weekly blood pressure task Care Plan Weekly blood pressure task No Ynes Pedrazailet Patient has chronic kidney disease Care Plan [...] blood pressure task No Shyann Eckert, FELECIA Weekly blood pressure [...] blood pressure task No Shyann Eckert, FELECIA Weekly blood pressure task Care Plan Weekly blood pressure task No Shyann Eckert, FELECIA Patient has chronic kidney disease Care Plan Patient has chronic kidney disease No Shyann Eckert, FELECIA Patient has chronic [...] Santiago [place] documented as of this encounter Visit Diagnoses [...] documented as of this encounter Care Teams Sign Manufacturer Relationship Specialty Start Date End Date Briana Varela NP [address] [place] [id number] PCP - General Family Medicine 06/11/23 documented as of this encounter
--- OUTSIDE RECORDS SUMMARY | 2025-08-17 16:37 | XMS_ITS | Encounter Summary ---
Author Organization [employer] Address [address] [place] [address] 7[address] [place] [address] Care Team Providers Care Sandwich Artist Name Role Phone Briana Varela NP Primary Care Provider [phone] Reason for Visit * Reason Onset Date Comments Med Refill 11/09/2024 Encounter Details Date Type Department Care Team ([facility] st Contact Info) Description 11/09/2024 Refill [facility]INE [address] [place] [address] Briana Varela NP [address] [place] [address] Type 2 diabetes mellitus without complication, without [...] Description 09/17/2025 10:15 AM EST Office Visit [facility] [address] [place] [address] Briana Varela NP [address] [place] [address] 10/06/2025 10:00 AM EST Clinical Support [facility] [address] [place] [address] Shyann Eckert, FELECIA [address] [place] [address] documented as of this encounter Visit Diagnoses [...] documented as of this encounter Care Teams Sandwich Artist Relationship Specialty Start Date End Date Briana Varela NP [address] [place] [address] PCP - General Family Medicine 06/11/23 documented as of this encounter
--- OUTSIDE RECORDS SUMMARY | 2025-08-17 16:37 | XMS_ITS | Encounter Summary ---
Author Organization [employer] Address [address] [place] [address] 7[address] [place] [address] Care Team Providers Care Digital Data Analyst Name Role Phone MarioBriana goss CARLEE Primary Care Provider [phone] Reason for Visit * Reason Onset Date Comments Med Refill 06/26/2025 Encounter Details Date Type Department Care Team ([facility] st Contact Info) Description 06/26/2025 Refill [facility]INE [address] [place] [address] Mi Santos MD [address] [place] [address] Type 2 diabetes mellitus without complication, without [...] Description 09/17/2025 10:15 AM EST Office Visit [facility]INE [address] [place] [address] Briana Varela NP [address] [place] [address] 10/06/2025 10:00 AM EST Clinical Support [facility] [address] [place] [address] Shyann Eckert, FELECIA [address] [place] [address] documented as of this encounter Visit Diagnoses Diagnosis Type 2 diabetes mellitus without complication, without long-term current use of insulin (HCC) documented in this encounter Additional Health Concerns Assessment Noted Time PHQ-9 Depression Total Score: 0 01/14/20 25 4:08 PM EDT documented as of this encounter Care Teams Digital Data Analyst Relationship Specialty Start Date End Date Briana Varela NP [address] [place] [address] PCP - General Family Medicine 06/11/23 documented as of this encounter
--- OUTSIDE RECORDS SUMMARY | 2025-08-17 16:37 | XMS_ITS | Encounter Summary ---
Author Organization [employer] Address [address] [place] [address] 7 [place] [address] Care Team Providers Care Public Accountant Name Role Phone Briana Varela NP Primary Care Provider [phone] Reason for Visit * Reason Onset Date Comments Med Refill 05/14/2025 Encounter Details Date Type Department Care Team ([facility] st Contact Info) Description 05/14/2025 Refill [facility] [address] [place] [address] Briana Varela NP [address] [place] [address] Type 2 diabetes mellitus without complication, without long-term current use of insulin ([facility]) Social History [...] not included. TC placed to pt via [employer] customer success specialist (Loren ID#[id number]) per below PCP message. Pt reports they completed just the 0.25 mg dose for 4 weeks. Advised pt per PCP, increase dose to 0.5 mg as there should be enough supply. Pt states they will take the 0.5 MG dose. Pt verbalized understanding of PCP message and denies questions at this time. Message forwarded to PCP as an FYI. Briana Varela CAR SUPERVISOR to [facility] Team Nurses (Selected Message) MOY 05/17/25 [...] Description 09/17/2025 10:15 AM EST Office Visit [address] [address] Briana Varela NP [address] [place] [address] 10/06/2025 10:00 AM EST Clinical Support [address] [address] Shyann Eckert RN [address] [place] [address] documented as of this encounter Visit Diagnoses Diagnosis Type 2 diabetes mellitus without complication, without long-term current use of insulin (HCC) documented in this encounter Additional Health Concerns Assessment Noted Time PHQ-9 Depression Total Score: 0 01/14/20 25 4:08 PM EDT documented as of this encounter Care Teams Public Accountant Relationship Specialty Start Date End Date Briana Varela NP [address] [place] [address] PCP - General Family Medicine 06/11/23 documented as of this encounter
--- OUTSIDE RECORDS SUMMARY | 2025-08-17 16:37 | XMS_ITS | Encounter Summary ---
Author Organization [employer] Address [address] [place] [address] 7 [place] [address] Care Team Providers Care Naval Inspector Name Role Phone Briana Varela NP Primary Care Provider [phone] Reason for Visit * Reason Onset Date Comments Med Refill 04/22/2025 Encounter Details Date Type Department Care Team ([facility] st Contact Info) Description 04/22/2025 Refill [facility] [address] [place] [address] Briana Varela NP [address] [place] [address] Type 2 diabetes mellitus without complication, without long-term current use of insulin ([facility]) Social History Tobacco Use Types Packs/Day Years [...] Description 09/17/2025 10:15 AM EST Office Visit [facility] [address] [place] [address] Briana Varela NP [address] [place] [address] 10/06/2025 10:00 AM EST Clinical Support [facility] [address] [place] [address] Shyann Eckert, FELECIA [address] [place] [phone] documented as of this encounter Visit Diagnoses Diagnosis Type 2 diabetes mellitus without complication, without long-term current use of insulin (HCC) documented in this encounter Additional Health Concerns Assessment Noted Time PHQ-9 Depression Total Score: 0 05/14/20 25 4:08 PM EDT documented as of this encounter Care Teams Naval Inspector Relationship Specialty Start Date End Date Briana Varela NP [address] [place] [address] PCP - General Family Medicine 06/11/23 documented as of this encounter
--- OUTSIDE RECORDS SUMMARY | 2025-08-17 16:37 | XMS_ITS | Encounter Summary ---
Author Organization [employer] Address [address] [place] [address] 7 [place] [address] Care Team Providers Care Clay Processing Labourer Name Role Phone Briana Varela NP Primary Care Provider [phone] Reason for Visit * Reason Onset Date Comments Medication Question 03/12/2025 Encounter Details Date Type Department Care Team ([facility] Contact Info) Description 03/12/[address] [facility] MEDICINE [address] [place] [address] Briana Varela NP [address] [place] [address] Medication Question Social History Tobacco Use Types [...] 4:50 PM EDT Pty reports now has [facility] . Chart updated with new insurance . Pt requesting ozempic documented in this encounter Plan of Treatment Upcoming Encounters Date Type Department Care Team (Late st Contact Info) Description 09/17/2025 10:15 AM EST Office Visit [facility] MED[facility]INE [address] [place] [address] Briana Varela NP [address] [place] [address] 10/06/2025 10:00 AM EST Clinical Support [facility] [address] [place] [address] Shyann Eckert, RN [address] [place] [address] documented as of this encounter Visit Diagnoses Not on filedocumented in this encounter Additional Health Concerns Assessment Noted Time PHQ-9 Depression Total Score: 0 01/14/20 25 4:08 PM EDT documented as of this encounter Care Teams Clay Processing Labourer Relationship Specialty Start Date End Date Briana Varela NP [address] [place] [address] PCP - General Family Medicine 06/11/23 documented as of this encounter
--- OUTSIDE RECORDS SUMMARY | 2025-08-17 16:38 | XMS_ITS | Encounter Summary ---
Author Organization [employer] Address [address] [facility] 7t [place] [address] Care Team Providers Care Sliver Machine Operator Name Role Phone Briana Varela NP Primary Care Provider [phone] Reason for Visit * Reason Comments Med Refill Encounter Details Date Type Department Care Team ([facility] st Contact Info) Description 07/27/[address] [facility]INE [address] [place] [address] Rani Sheriff NP [address] [place] [address] Type 2 diabetes mellitus without complication, without [...] Description 09/17/2025 10:15 AM EST Office [address] [facility] [address] [place] [address] Briana Varela NP [address] [place] [address] 10/06/2025 10:00 AM EST Clinical Support [facility] [address] [place] [address] Shyann Eckert RN [address] [place] [address] documented as of this encounter Goals Goal [...] Care Plan Weekly blood pressure task No MiloYnes reedilet Patient has chronic kidney [...] documented as of this encounter Care Teams Sliver Machine Operator Relationship Specialty Start Date End Date Briana Varela NP [address] [place] [address] PCP - General Family Medicine 06/11/23 documented as of this encounter
== END 2025-08-17 12:47 | disposition home or self-care (01) ==
LOC: HO.XRAY 12:46
PROVIDERS: PCP Nurse Practitioner; Visit Provider Surgery
DX: E11.9 Type 2 diabetes mellitus without complications (principal); I10 Essential (primary) hypertension; E66.01 Morbid (severe) obesity due to excess calories
CPT/HCPCS: 36415; 71046; 80053; 80061; 82306; 82607; 82728; 82746; 83036; 83525; 83540; 84425; 84443; 84590; 84630; 85025; 86140; 93005

== ENCOUNTER → 2025-08-17 13:09 | Outpatient (BNV) | payer OTHER, SELFPAY | PROVIDERS: PCP Nurse Practitioner; Visit Provider Internal Medicine Cardiovascular Disease | DX: E66.01 Morbid (severe) obesity due to excess calories (principal); Z68.42 Body mass index [BMI] 45.0-49.9, adult | CPT/HCPCS: 93010 ==

== ENCOUNTER → 2025-08-17 13:32 | Outpatient (BNV) | payer OTHER, SELFPAY | PROVIDERS: PCP Nurse Practitioner; Visit Provider Radiology Diagnostic Radiology | DX: E66.01 Morbid (severe) obesity due to excess calories (principal); Z68.42 Body mass index [BMI] 45.0-49.9, adult | CPT/HCPCS: 71046 ==